=== PATIENT | male | born 1965 | race Caucasian/White ===

== ENCOUNTER 2021-11-20 07:02 | Inpatient (IN) | payer MEDICARE, SELFPAY ==
[2021-11-20] VITALS (17 sets, daily range): BP systolic 160–204; BP diastolic 80–106; PULSE 59–88; RESP 4–21; TEMP 36.1–36.8; O2SAT 94–100; BMI 40.1
--- NOTE | 2021-11-20 07:20 | CT_ITS ---
WS: [id number] CT CERVICAL SPINE HISTORY: trauma TECHNIQUE: Contiguous 2.5 mm axial imaging performed through the entire cervical spine. Sagittal and coronal reformats also performed. All CT scans at [place] use at least one of these dose o ptimization techniques: automated exposure control; mA and/or kV adjustment per patient size (include s targeted exams where dose is matched to clinical indication); or iterative reconstruction. DLP: 1362.08 mGy.cm COMPARISON: None available. Mild scoliosis of the cervical spine. Posterior alignment remains normal. Mild narrowing of the disc spaces throughout. Craniocervical junction, atlantodental interval and C1-C2 alignment is normal. C2-C3: Normal. C3-C4: Normal. C4-C5: Normal. C5-C6: Normal. C6-C7: Mild osteophytic ridging. Very small osteophytes and mild LEFT foraminal narrowing. C7-T1: Mild bilateral foraminal narrowing. Soft tissues are normal. Lung apices are clear. CT/CT cervical spin wo con* [id number] IMPRESSION: 1. No acute cervical spine fracture. 2. Cervical scoliosis. 3. Mild spondylitic changes but no high-grade stenosis.
--- NOTE | 2021-11-20 07:20 | CT_ITS ---
WS: [id number] CT LUMBAR SPINE, noncontrast. HISTORY: trauma TECHNIQUE: Contiguous 2.5 mm axial imaging are performed. Sagittal and coronal reformats are submitte d and reviewed. All CT scans at [facility] use at least one of these dose optimization techni ques: automated exposure control; mA and/or kV adjustment per patient size (includes targeted exams w here dose is matched to clinical indication); or iterative reconstruction. IV contrast: None DLP: 1125.27 mGy.cm COMPARISON: None available. Normal lumbar alignment with no loss of disc space height or vertebral body height. L1-2: Normal. L2-3: Mild annular disc bulge and facet arthritis. No stenosis. L3-4: Moderate diffuse annular disc bulging with osteophytic ridging and facet arthritis. Mild centra l, bilateral subarticular recess and foraminal stenosis. L4-5: Diffuse annular disc bulging asymmetric to the LEFT. Ligamentum flavum and facet arthritis. Mil d central, bilateral subarticular recess and foraminal stenosis. L5-S1: Osteophytic ridging and mild disc bulging. Mild subarticular recess and foraminal narrowing. Mild degenerative changes in the SI joints. Bone island RIGHT ischium. Stone in the gallbladder lumen or wall of the gallbladder. Visualized adrenal glands are negative. No retroperitoneal hematoma. CT/CT lumbar spine wo con* [id number] IMPRESSION: 1. No acute fracture. 2. Mild stenosis from L3-4 to L5-S1 as described above. No high-grade stenosis or large disc protrusions.
--- NOTE | 2021-11-20 07:20 | CT_ITS ---
WS: [id number] CT HEAD NONCONTRAST HISTORY: trauma TECHNIQUE: Contiguous axial imaging performed through the brain in 2.5 mm imaging. Bone and soft tiss ue windows. Sagittal and coronal reformats reviewed. All CT scans at [facility] use at least one of these dose optimization techniques: automated exposure control; mA and/or kV adjustment per pa tient size (includes targeted exams where dose is matched to clinical indication); or iterative recon struction. DLP: 1362.08 mGy.cm COMPARISON: None available. No acute intracranial hemorrhage, midline shift or mass effect. Moderate atrophy and small vessel ischemic disease. Numerous bilateral lacunar infarcts are noted inv olving the basal ganglia. There is also mild cerebellar atrophy. Small lacunar infarct in the LEFT po ns. Ventricles: Normal size with no hydrocephalus. No inferior displacement of cerebellar tonsils. Paranasal sinuses: As visualized are clear. Mastoid air cells: Well pneumatized. Calvarium and scalp: Skull is intact with no soft tissue edema or swelling. CT/CT head wo con* [id number] IMPRESSION: 1. No acute intracranial hemorrhage or edema. 2. Moderate cerebral atrophy and small vessel ischemic disease. 3. Multiple lacunar infarcts in the basal ganglia, bilaterally with a LEFT navi s lacunar infarct.
--- NOTE | 2021-11-20 07:20 | XR_ITS ---
WS: [id number] Exam: XR chest 1V portable [id number] Date/Time of Exam: 11/20/2021 7:24 AM Reason For Exam: dyspnea/cough Comparison 03/23/2018. Findings: The lungs are clear and fully expanded. Costophrenic angles are sharp. No infiltrates. Bronchovascula r relief appears normal. Cardiac silhouette is unremarkable. Bony elements are intact. XR/XR chest 1V portable [id number] IMPRESSION: Unremarkable chest radiograph.
--- NOTE | 2021-11-20 07:21 | ECG_ITS ---
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 Measurements Intervals [place] Rate: 71 P: 13 PA: 231 QRS: -59 QRSD: 102 T: 23 QT: 409 QTc: 445 Interpretive Statements SINUS RHYTHM WITH FIRST DEGREE AV BLOCK INFERIOR MYOCARDIAL INFARCTION , OF INDETERMINATE AGE ANTEROSEPTAL MYOCARDIAL INFARCTION , OF INDETERMINATE AGE Compared to ECG 03/23/2018 08:44:19 First degree AV block now present Myocardial infarct finding still present Electronically Signed On 11-20-2021 12:19:36 CDT by Casi Christy M.D. [id number]
--- NOTE | 2021-11-20 07:22 | ED_ITS ---
HPI - Weakness General: Chief complaint: Weakness Stated complaint: WEAKNESS/ FALL 2 DAYS AGO Time Seen by Provider: 11/20/21 07:07 Source: patient Mode of arrival: EMS History of Present Illness: 55-year-old male arrives via EMS. He reports having fallen at home 2 days ago. He states since then he has had difficult time denies any pain anywhere in particular he tells me that he previously had a stroke. He is not on any anticoagulants. He evidently fell backward he has a small abrasion to the back of his head EMS states there was a hole in the sheet rock where the patient had fallen at home. Is difficult time moving his right leg. He was incontinent of bowel prior to arrival. He is able answer all questions regarding time place and person but has difficulty formulating answers. Patient is diabetic. He is unable to tell me any details on his fall other than he just fell in the kitchen 2 days ago. MD Complaint: generalized weakness Onset (ago): day(s) (2) Duration: constant Location: RLE Severity: moderate Relieving factors: none Exacerbating factors: none Associated symptoms: Denies chest pain, chills, confusion, melena, decreased appetite, diaphoresis, dysuria, easy bruising, fever(s), headache(s), myalgias, nausea, rash, short of breath, syncope or vomiting Review of Systems Const: Denies: fever(s), chills, fatigue, malaise or diaphoresis ENMT: Denies: throat pain, ear or mastoid pain, nasal discharge or nasal congestion Card: Denies: chest pain or syncope Resp: Denies: dyspnea, productive cough or non-productive cough GI: Denies: abdominal pain, nausea, vomiting or melena : Denies: flank pain, difficulty urinating, dysuria, urinary frequency or urinary urgency Skin/Breast: Denies: rash or pruritus Neuro: Denies: headache(s) or confusion Jose Manuel/Lymph: Denies: easy bruising PFSH ED PFSH: Medical History CAD (coronary artery disease) Carotid stenosis Closed right hip fracture Diabetes Displaced fracture of right femoral neck Fall HTN (hypertension) Hyperlipidemia Sleep apnea Stroke Surgical History History of appendectomy History of tonsillectomy Family History Other Diabetes Hyperlipidemia Hypertension Social History Smoking and tobacco status: never smoked Alcohol intake: never Physical Exam Const: GENERAL APPEARANCE: cooperative and comfortable ORIENTATION/CONSCIOUSNESS: Yes awake, Yes oriented to person, Yes oriented to place and Yes oriented to time HENMT: COMMON NORMALS: normocephalic, atraumatic, hearing grossly normal bilaterally, external ears normal, EAC's normal, TM's normal bilaterally, Normal nasal mucous membranes and turbinates present, moist oral mucous membranes and oropharynx normal HEAD & SCALP: normocephalic and atraumatic NOSE: Normal nasal mucous membranes and turbinates present EXTERNAL EAR: Yes external ears normal EXTERNAL AUDITORY CANAL: EAC's normal TYMPANIC MEMBRANE: TM's normal bilaterally Eye: COMMON NORMALS: Equal, round and reactive pupils present, EOMs intact bilaterally, conjunctivae normal and no scleral icterus CONJUNCTIVA: Yes conjunctivae normal PUPIL: Yes Equal, round and reactive pupils present Neck/C-Spine: COMMON NORMALS: full ROM, no lymphadenopathy, supple and no JVD Resp: COMMON NORMALS: normal respiratory effort, No retractions, No use of accessory muscles and clear to auscultation bilaterally AUSCULTATION: clear to auscultation bilaterally Cardio: COMMON NORMALS: no JVD, regular rate, regular rhythm and No murmurs present (Cardio) RATE: regular rate RHYTHM: regular rhythm GI: COMMON NORMALS: Soft to palpation and No hepatosplenomegaly present AUSCULTATION: Yes normoactive bowel sounds PALPATION: Yes Soft to palpation, No Tenderness to palpation present (GI), No Guarding due to palpation present (GI) and Yes No hepatosplenomegaly present Extremity: COMMON NORMALS: normal to inspection, capillary refill normal, no clubbing, cyanosis or edema, no calf tenderness and no pedal edema Neuro: SENSORIUM/ORIENTATION: Yes oriented to person, Yes oriented to place and Yes oriented to time OTHER: Patient is able to follow all commands. He answers all questions regarding time place person orientation. He is little hesitant with his responses however. His word finding appears to be normal he has no dysarthria and no ataxia. He is not able to lift his right leg but is able to dorsi and plantarflex against resistance with 5 of 5 strength. His sensation of the lower extremities is normal. He has no arm drift and sensation in the upper extremities and his facial symmetry is all normal. Psych: COMMON NORMALS: mental status grossly normal Skin: COMMON NORMALS: no rashes or lesions noted GENERAL SKIN EXAM: no rashes or lesions noted Course Vital Signs: Vital signs: Vital Signs Temperature 97.5 F L 11/23/21 13:39 Pulse Rate 109 H 11/23/21 13:39 Respiratory Rate 16 11/23/21 13:39 Blood Pressure 134/80 11/23/21 13:39 Pulse Oximetry 97 11/23/21 13:39 Oxygen Delivery Me thod 11/22/21 15:32 Oxygen Flow Rate 8 11/21/21 14:05 MDM - Weakness Medical Decision Making Right subcapital impacted hip fracture. Son arrived later he could tell a few more details about the fall but he was not in the room when it happened. Evidently fell 2 nights ago and making coffee around 3 AM and then the son assisted him to the shower where he fell again. He seemed lethargic but he was refusing any medical driver and instructed his son not to call the ambulance. Eventually they did because he was unable to get up and take care of himself. After the initial fall in the kitchen the son reports he did walk to the shower. CT shows lacunar infarcts. Similar to previous. Discussed with Cole and discussed with Dr. Sims orders written. Medical Records I reviewed the patient's medical records. Lab Data I reviewed the patient's lab results. : 11/23/21 04:00 11/22/21 04:31 Radiology Impressions Cervical Spine CT 11/20/21 07:20 IMPRESSION: 1. No acute cervical spine fracture. 2. Cervical scoliosis. 3. Mild spondylitic changes but no high-grade stenosis. Chest X-Ray 11/20/21 07:20 IMPRESSION: Unremarkable chest radiograph. Head CT 11/20/21 07:20 IMPRESSION: 1. No acute intracranial hemorrhage or edema. 2. Moderate cerebral atrophy and small vessel ischemic disease. 3. Multiple lacunar infarcts in the basal ganglia, bilaterally with a LEFT pa lacunar infarct. Lumbar Spine CT 11/20/21 07:20 IMPRESSION: 1. No acute fracture. 2. Mild stenosis from L3-4 to L5-S1 as described above. No high-grade stenosis or large disc protrusions. Femur X-Ray 11/20/21 09:10 IMPRESSION: 1. Subcapital fracture of the right femur. Remaining aspects of the right femur are intact. Knee X-Ray 11/20/21 09:10 IMPRESSION: 1. Negative RIGHT knee for fracture. 2. Peripheral arterial calcifications. Pelvis X-Ray 11/20/21 09:10 IMPRESSION: 1. Mildly impacted acute fracture involving the base of the RIGHT femoral neck. 2. Otherwise mild osteoarthritis at the hip joints bilaterally. Hip/Pelvis X-Ray 11/21/21 14:17 IMPRESSION: 1. Right hip hemiprosthesis appearing be in satisfactory position Laboratory Results WBC 6.6 10^3/uL (4.0-10.0) 11/20/21 07:10 RBC 5.62 10^6/uL (4.1-5.3) H 11/20/21 07:10 Hgb 15.4 g/dL (11.7-16.6) 11/20/21 07:10 Hct 46.6 % (42.0-52.0) 11/20/21 07:10 MCV 82.9 fl (80-94) 11/20/21 07:10 MCH 27.4 pg (28.0-34.0) L 11/20/21 07:10 MCHC 33.0 g/dL (30.0-36.0) 11/20/21 07:10 RDW 13.2 % (12.1-15.1) 11/20/21 07:10 Plt Count 158 10^3/cmm (130-400) 11/20/21 07:10 MPV 11.5 fL (7.4-10.4) H 11/20/21 07:10 Neut % (Auto) 60.4 % 11/20/21 07:10 Lymph % (Auto) 25.5 % 11/20/21 07:10 [place] % (Auto) 12.1 % 11/20/21 07:10 Eos % (Auto) 1.1 % 11/20/21 07:10 Baso % (Auto) 0.3 % 11/20/21 07:10 Neut # (Auto) 4.01 10^3/uL (1.8-7.7) 11/20/21 07:10 Lymph # (Auto) 1.7 10^3/uL (0.8-4.8) 11/20/21 07:10 [place] # (Auto) 0.8 10^3/uL (0.2-0.9) 11/20/21 07:10 Eos # (Auto) 0.1 10^3/uL (0.0-0.8) 11/20/21 07:10 Baso # (Auto) 0.0 10^3/uL (0.0-0.1) 11/20/21 07:10 Nucleated RBC % (auto) 0 % 11/20/21 07:10 Nucleated RBCs # 0.0 /100WBC 11/20/21 07:10 PT 13.00 SECONDS (12.1-14.9) 11/20/21 07:10 INR 0.96 (0.8-1.2) 11/20/21 07:10 APTT 23.8 SECONDS (23.9-36.7) L 11/20/21 07:10 Sodium 135 mmol/L (136-145) L 11/20/21 07:10 Potassium 3.7 mmol/L (3.5-5.1) 11/20/21 07:10 Chloride 98 mmol/L (98-107) 11/20/21 07:10 Carbon Dioxide 22 mmol/L (22-29) 11/20/21 07:10 Anion Gap 18.7 (5-19) 11/20/21 07:10 BUN 21 mg/dL (6-20) H 11/20/21 07:10 Creatinine 0.9 mg/dL (0.7-1.2) 11/20/21 07:10 GFR Calculation 87.3 mL/min (90-130) L 11/20/21 07:10 Glucose 273 mg/dL (65-115) H 11/20/21 07:10 Estimat Average Glucose 203 11/20/21 07:10 Hemoglobin A1c 8.7 % (4.0-6.0) H 11/20/21 07:10 Calculated Osmolality 293 mOsm/kg (285-295) 11/20/21 07:10 Calcium 8.7 mg/dL (8.5-10.5) 11/20/21 07:10 Total Bilirubin 0.7 mg/dL (0.15-1.2) 11/20/21 07:10 AST 20 U/L (0-40) 11/20/21 07:10 ALT 20 U/L (0-41) 11/20/21 07:10 Alkaline Phosphatase 64 U/L (40-130) 11/20/21 07:10 Creatine Kinase 202 U/L (39-308) 11/20/21 07:10 Troponin T Baseline 15 ng/L (0-15) 11/20/21 07:10 Troponin T 120 Minute 15.00 ng/L (0-15) 11/20/21 09:55 Delta Troponin T 0 ABS# (0-10) 11/20/21 09:55 Total Protein 6.4 g/dL (6.6-8.7) L 11/20/21 07:10 Albumin 3.5 g/dL (3.5-5.2) 11/20/21 07:10 Globulin 2.9 g/dL (1.3-4.6) 11/20/21 07:10 TSH 0.95 uIU/mL (0.27-4.20) 11/20/21 09:55 Urine Color Dark yellow (Yellow) 11/20/21 07:55 Urine Appearance Clear (CLEAR) 11/20/21 07:55 Urine pH 5 (5-7) 11/20/21 07:55 Ur Specific [place] 1.020 (1.005-1.030) 11/20/21 07:55 Urine Protein 2+ (Negative) H 11/20/21 07:55 Urine Glucose (UA) 4+ (Normal) H 11/20/21 07:55 Urine Ketones 2+ (Negative) H 11/20/21 07:55 Urine Blood Neg (Negative) 11/20/21 07:55 Urine Nitrate Negative (Negative) 11/20/21 07:55 Urine Bilirubin Neg (Negative) 11/20/21 07:55 Urine Urobilinogen Norm mg/dL (Negative) 11/20/21 07:55 Ur Leukocyte Esterase Negative (Negative) 11/20/21 07:55 Urine RBC Rare /hpf (0-2) 11/20/21 07:55 Urine WBC 0-4 /hpf (0-5) H 11/20/21 07:55 Ur Squamous Epith Cells Rare /hpf (0-5) 11/20/21 07:55 Amorphous Sediment Not Reportable 11/20/21 07:55 Urine Bacteria Trace /hpf (NONE) 11/20/21 07:55 Hyaline Casts Rare /lpf 11/20/21 07:55 Urine Mucus 1+ /hpf 11/20/21 07:55 Blood Type O Positive 11/20/21 09:55 Rho(D) Type Positive 11/20/21 09:55 Antibody Screen Negative 11/20/21 09:55 Discharge Plan Discharge Patient Disposition: Admitted As Inpatient Admit Provider: John Harp Clinical Impression: Closed right hip fracture, History of cerebrovascular accident, Sleep apnea, Diabetes, Carotid stenosis, CAD (coronary artery disease) Condition: Stable Discharge Diet: Cardiac and Diabetic Discharge Activity: Limit activity as instructed Coding Level of Care Code 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[employer] 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 Comprehensive NIH stroke score NIHSS Level Of Consciousness - 1a: 1 (Patient is slow to answer questions but is able to answer questions appropriately.) Level Of Consciousness Questions - 1b: Both Correct Level Of Consciousness Commands - 1c: Both Correct Best Gaze - 2: Normal Visual Hart - 3: No Visual Loss Facial Palsy - 4: Normal Motor Arm Right - 5: No Drift Motor Arm Left - 5: No Drift Motor Leg Right - 6: No Drift Motor Leg Left - 6: No Drift Limb Ataxia - 7: Absent Sensory - 8: Normal Best Language - 9: No Aphasia Dysarthia - 10: Normal Extinction And Inattention - 11: 0 Score Total Score: 1
[2021-11-20 07:36] LABS: Basophils % 0.3 %; Eosinophils # 0.1 10^3/uL (0.0-0.8); Eosinophils % 1.1 %; Hematocrit 46.6 % (42.0-52.0); Hemoglobin 15.4 g/dL (11.7-16.6); Lymphocytes # 1.7 10^3/uL (0.8-4.8); Lymphocytes % 25.5 %; Mean Corpuscular Hemoglobin 27.4 pg (28.0-34.0); Mean Corpuscular Volume 82.9 fl (80-94); Mean Platelet Volume 11.5 fL (7.4-10.4); Monocytes # 0.8 10^3/uL (0.2-0.9); Monocytes % 12.1 %; Neutrophils # 4.01 10^3/uL (1.8-7.7); Neutrophils % 60.4 %; Nucleated Red Blood Cells % 0 %; Platelet Count 158 10^3/cmm (130-400); Red Blood Count 5.62 10^6/uL (4.1-5.3); Red Cell Distribution Width 13.2 % (12.1-15.1); White Blood Count 6.6 10^3/uL (4.0-10.0)
--- NOTE | 2021-11-20 07:53 | XR_ITS ---
WS: [id number] Exam: XR hip RT 2-3V wo/w pel* [id number] Date/Time of Exam: 11/20/2021 8:15 AM Reason For Exam: pain There is a subcapital fracture of the right hip. There is impaction but no significant displacement. Moderate degenerative change of the joint compartment. Vascular calcification in the upper medial thi gh. XR/XR hip RT 2-3V wo/w pel* [id number] IMPRESSION: 1. Subcapital fracture of the right hip with the mild impaction.
[2021-11-20 07:58] LABS: Alanine Aminotransferase 20 U/L (0-41); Albumin Level 3.5 g/dL (3.5-5.2); Alkaline Phosphatase 64 U/L (40-130); Blood Urea Nitrogen 21 mg/dL (6-20); Calcium 8.7 mg/dL (8.5-10.5); Carbon Dioxide 22 mmol/L (22-29); Chloride 98 mmol/L (98-107); Creatine Phosphokinase 202 U/L (39-308); Globulin 2.9 g/dL (1.3-4.6); Glomerular Filtration Rate 87.3 mL/min (90-130); Glucose 273 mg/dL (65-115); Osmolality Calculated 293 mOsm/kg (285-295); Sodium 135 mmol/L (136-145); Total Bilirubin 0.7 mg/dL (0.15-1.2); Total Protein 6.4 g/dL (6.6-8.7); Troponin(5th) Baseline 15 ng/L (0-15)
[2021-11-20 08:00] LABS: Anion Gap 18.7 (5-19); Aspartate Amino Transferase 20 U/L (0-40); Potassium 3.7 mmol/L (3.5-5.1)
[2021-11-20 08:16] LABS: Add Urine Culture? No; Add Urine Microscopic? YES; Bacteria Urine TRACE /hpf; Bilirubin Urine Neg (Negative); Blood Urine Neg (Negative); Glucose Urine UA 4+ (Normal); Hyaline Casts Urine RARE /lpf; Ketones Urine 2+ (Negative); Leukocyte Esterase Urine Negative (Negative); Mucus Urine 1+ /hpf; Nitrate Urine Negative (Negative); Protein Urine 2+ (Negative); RBC Urine RARE /hpf (0-2); Squamous Epithelial Cell Urine RARE /hpf (0-5); Urine Appearance Clear (CLEAR); Urine Color Dark Yellow (Yellow); Urobilinogen Urine Norm (Negative); WBC Urine 0-4 /hpf (0-5); pH Urine 5 (5-7)
--- NOTE | 2021-11-20 09:05 | ECG_ITS ---
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 Measurements Intervals [place] Rate: 67 P: -17 SC: 233 QRS: -63 QRSD: 103 T: 28 QT: 416 QTc: 442 Interpretive Statements SINUS RHYTHM WITH FIRST DEGREE AV BLOCK POSSIBLE ANTERIOR MYOCARDIAL INFARCTION , OF INDETERMINATE AGE [30 ms Q WAVE IN V3/V4, OR R < 0.2 mV IN V4] INFERIOR MYOCARDIAL INFARCTION , OF INDETERMINATE AGE [40+ ms Q WAVE AND/OR ST/T ABNORMALITY IN II/aVF] Compared to ECG 11/20/2021 07:25:26 No significant changes Electronically Signed On 11-20-2021 12:20:56 CDT by Casi Christy M.D. [id number]
--- NOTE | 2021-11-20 09:10 | XR_ITS ---
WS: [id number] RIGHT KNEE: 2 VIEW(S) TECHNIQUE: AP and lateral. HISTORY: right femur fx COMPARISON: None available. No fracture or dislocation. Very mild narrowing of the joint spaces. Irregularity noted at the tibial tubercle. No significant joao int effusion. No joint effusion. Extensive femoral and popliteal artery calcifications. XR/XR knee RT 1-2V [id number] IMPRESSION: 1. Negative RIGHT knee for fracture. 2. Peripheral arterial calcifications.
--- NOTE | 2021-11-20 09:10 | XR_ITS ---
WS: [email or web address] PELVIS: AP VIEW SUBMITTED HISTORY: right hip fx COMPARISON: None available. Acute mildly impacted fracture involving the base of the RIGHT femoral neck. Mild overlapping of frac ture fragments and impaction. Mild bilateral hip joint narrowing from arthritis. No widening of the SI joints or symphysis pubis. N o pubic rami fracture. XR/XR pelvis 1-2V* [id number] IMPRESSION: 1. Mildly impacted acute fracture involving the base of the RIGHT femoral neck . 2. Otherwise mild osteoarthritis at the hip joints bilaterally.
--- NOTE | 2021-11-20 09:10 | XR_ITS ---
WS: [email or web address] Exam: XR femur RT min 2V* [id number] Date/Time of Exam: 11/20/2021 9:23 AM Reason For Exam: right femur fx There is a subcapital fracture of the right hip. Remaining aspects the right femur are intact. XR/XR femur RT min 2V* [id number] IMPRESSION: 1. Subcapital fracture of the right femur. Remaining aspects of the right femur are intact.
--- NOTE | 2021-11-20 09:15 | P.CONIM_ITS ---
Providers/Reason For Consult Consulting Physician/Specialty*: Al Galvan DO/orthopedic surgery Reason for Consult*: Right femoral neck fracture Requesting Physician: Dr. White Attending Physician: Dr. Harp Primary Care Provider: RHETT Briceño History of Present Illness History of Present Illness Cal Oneill is a 55 year old male who presents to the emergency department with his son with complaints of right hip pain and inability to bear weight. Patient allegedly began sustaining multiple falls roughly 3 nights ago. 1 of which she had hit his head. He subsequently had another fall where he fell onto his hip and had pain in the right hip and inability to bear weight since. He subsequently soiled himself this morning and as result his son thought it was best to bring patient in the emergency department. He has been worked up for a head injury which the son states he thought he may be was in and out of co nsciousness from one of his multiple falls and ultimately the work-up in the emergency department has been negative for any acute hemorrhage or cervical spine injury. Given his right hip pain inability to bear weight x-ray is performed and shows a displaced subcapital right femoral neck fracture. As result the orthopedic team was consulted for evaluation and treatment of patient. Patient does have extensive past medical history which she states he does not take much medications he is on metformin for diabetes mellitus he supposed to be on an aspirin daily given his coronary artery disease but he states he does not take this. He is not on any anticoagulants. His baseline ambulatory status is he does live at home and he mobilizes around the home utilizing some assistive device to needed. He does not sound to be much in the way of a community ambulator. Review of Systems General: Reports: 10 or more systems reviewed and unremarkable except in HPI and below Const: Denies: fever(s) or chills Card: Denies: chest pain Resp: Denies: dyspnea GI: Denies: abdominal pain, nausea or vomiting Musc: Reports: extremity pain and joint pain Neuro: Denies: numbness in extremities Medications/Allergies Home Medications Medication Instructions Recorded Confirmed Last Taken Type metformin 1,000 mg tablet 1,000 mg PO BID 05/07/19 11/20/21 11/19/21 History Allergies Allergy/AdvReac Type Severity Reaction Status Date / Time tramadol AdvReac ADR-Headach Verified 11/20/21 07:29 e PFSH Acute PFSH: Medical History (Updated 11/20/21 @ 16:20 by Al Galvan DO) CAD (coronary artery disease) Carotid stenosis Diabetes Displaced fracture of right femoral neck HTN (hypertension) Hyperlipidemia Sleep apnea Stroke Surgical History History of appendectomy History of tonsillectomy Family History Other Diabetes Hyperlipidemia Hypertension Social History (Updated 11/20/21 @ 09:47 by John Harp MD) Smoking and tobacco status: never smoked Alcohol intake: never Substance/Drug Use: current Substance/Drug use type: Marijuana Vitals/I&O/Wt Last Vital Signs Temp 97.9 F 11/20/21 07:03 Pulse 76 11/20/21 07:30 Resp 18 11/20/21 07:30 BP 180/86 11/20/21 07:30 Pulse Ox 100 11/20/21 07:30 O2 Del Method 11/20/21 07:30 Weight last 48 hrs Weight 280 lb Physical Exam Narrative: Orthopedic examination: Examination of the bilateral upper extremities demonstrates no tenderness to palpation or painful range of motion of bilateral shoulders elbows wrists and hands. Patient has tenderness to palpation over the right hip no tenderness palpation of pelvic compression. No tenderness over the left hip groin or pain with range of motion is able to perform a straight leg raise to the left lower extremity wiggle toes plantarflex dorsiflex ankle. Significant tenderness to palpation to the right hip, patient is on able to perform a straight leg raise positive logroll right lower extremity is shortened and externally rotated. Patient is able to wiggle toes plantarflex and dorsiflex ankle sensation tact light touch to the SPN/DPN/tibial/saphenous/sural nerve distribution. Distal pulse palpable. No tenderness to palpation over the distal aspect the femur and right knee Const: COMMON NORMALS: no acute distress and alert HENMT: COMMON NORMALS: normocephalic and atraumatic HEAD & SCALP: normocephalic and atraumatic Resp: COMMON NORMALS: normal respiratory effort Cardio: COMMON NORMALS: Peripheral pulses 2+ throughout PERIPHERAL PULSES: Peripheral pulses 2+ throughout Neuro: SENSORIUM/ORIENTATION: Yes alert Data : 11/20/21 07:10 11/20/21 07:10 Xray Ortho: My impression: X-rays AP pelvis right hip femur and knee films reviewed demonstrate a displaced subcapital femoral neck fracture. No other fracture dislocation noted. Radiologist's impression: IMPRESSION: 1. Subcapital fracture of the right femur. Remaining aspects of the right femur are intact. ? A&P Assessment and plan (1) Displaced fracture of right femoral neck: Plan MDM: Cal presents as a pleasant 55-year-old gentleman who sustained a ground-lev el fall and injured his right hip. X-rays show a displaced subcapital femoral neck fracture. Patient is 55 years at of age however patient's comorbidities and overall health he appears much older. At this point in time I detailed discussion with him about his treatment options as far as nonoperative and operative intervention. Ultimately I would recommend operative intervention. We talked about ORIF versus hip hemiarthroplasty versus total hip replacement. At this standpoint I do not feel given the displacement he would be a good candidate for ORIF and high likelihood of revision surgery. He did not complain of any prior hip pain and ultimately given the acute nature of the fall and his poor biologic age given his comorbidities I feel patient would be more of a candidate for a hip hemiarthroplasty. His mobility is minimal and I do have some concerns about his following of hip precautions from the standpoint of putting patient into a total hip replacement. Also patient is a Evangelical and ultimately would like to keep blood loss at a minimum. I would recommend doing a posterior approach given his bone quality his door classification appears more to be in a as result I think we could have appropriate press-fit fixation and he would be a good candidate for this. As result he will be posterior approach press-fit bipolar hip hemiarthroplasty. We will have him worked up by the internal medicine team. We will get a medically optimized prior to surgical intervention. He may have a diet today. Nonweightbearing to the right hip. He may start Lovenox today hold a.m. anticoagulation for surgical intervention planned tomorrow once patient's medically cleared and optimized by internal medicine as well as anesthesia team. Stands and agrees with current plan. All questions answered at this time. -Nonweightbearing right lower extremity -Pain control -DVT prophylaxis?Lovenox May received today however hold a.m. anticoagulation -I have a diet today patient should be n.p.o. at midnight -Internal medicine as primary and appreciate their medical management and clearance and optimization for surgery -X-ray imaging reviewed -Plan for OR tomorrow for right hip hemiarthroplasty through a posterior approach press-fit fixation utilizing bipolar implant once medically optimized and cleared for surgery Consult Attestations Medical Necessity Statement: Patient sustained right femoral neck fracture requiring surgical intervention and hospitalization. Coding Level of Care Code Acute Rn Corrections for [facility] Diagnoses Displaced fracture of right femoral neck S72.001A Time Spent (min) 55
[2021-11-20 09:40] LABS: INR 0.96 (0.8-1.2)
[2021-11-20 09:41] LABS: Partial Thromboplastin Time 23.8 SECONDS (23.9-36.7)
--- NOTE | 2021-11-20 09:42 | P.HP_ITS ---
Providers/Chief Complaint Admitting Physician: John Harp MD Primary Care Provider: RHETT Briceño Chief Complaint: WEAKNESS/ FALL 2 DAYS AGO History of Present Illness Cal Oneill is a 55 year old male presenting to the emergency department with history of fall, approximately 2 days ago in the morning when he was up making coffee. Son walked him to the shower to get cleaned up, and he fell again. He has been having some right leg pain since then. Son reports he seemed to have a little bit of word finding difficulty when he first fell but that is cleared up very quickly. There is no history of seizure. Patient denies any focal weakness, reporting only pain when he tries to move his right lower extremity. He has had a past history of stroke, in 2019. He has not been on any preventative medicines for this nor his heart disease. He denies any chest discomfort lately. No issues with anesthesia. He does report he is a Qu[employer]. He does not want any blood products, but should he need any for life- threatening needs he would like to be asked again. He has not been taking preventative medicines for his past history of stroke or heart disease. He has not been using his CPAP. Review of Systems General: Reports: 10 or more systems reviewed and unremarkable except in HPI and below Const: Reports: fatigue Eyes: Denies: change in vision ENMT: Denies: throat pain Card: Denies: chest pain Resp: Denies: dyspnea GI: Denies: abdominal pain, nausea or vomiting : Denies: flank pain Musc: Denies: neck pain Skin/Breast: Denies: rash or pruritus Neuro: Denies: headache(s) Psych: Denies: anxiety or depression Endo: Denies: polyuria Jose Manuel/Lymph: Denies: easy bruising All/Imm: Denies: urticaria Medications/Allergies Home Medications Medication Instructions Recorded Confirmed Last Taken Type metformin 1,000 mg tablet 1,000 mg PO BID 05/07/19 11/20/21 11/19/21 History Allergies Allergy/AdvReac Type Severity Reaction Status Date / Time tramadol AdvReac ADR-Headach Verified 11/20/21 07:29 e PFSH Acute PFSH: Medical History CAD (coronary artery disease) Carotid stenosis Diabetes HTN (hypertension) Hyperlipidemia Sleep apnea Stroke Surgical History History of appendectomy History of tonsillectomy Family History Other Diabetes Hyperlipidemia Hypertension Social History (Updated 11/20/21 @ 09:47 by John Harp MD) Smoking and tobacco status: never smoked Alcohol intake: never Substance/Drug Use: current Substance/Drug use type: Marijuana Vitals/I&O/Wt Last Vital Signs Temp 97.9 F 11/20/21 07:03 Pulse 75 11/20/21 09:30 Resp 19 H 11/20/21 09:30 BP 172/86 11/20/21 09:30 Pulse Ox 100 11/20/21 09:30 O2 Del Method 11/20/21 07:30 Weight last 48 hrs Weight 127.006 kg Physical Exam Narrative: General exam is a white male, conversant, weak but in conversation. Son reports this is baseline. HEENT: Atraumatic normocephalic. Pupils equally round. Oropharynx clear. Tongue is midline. No obvious facial droop. Neck is supple without lymphadenopathy or thyromegaly Cardiovascular regular rate and rhythm without murmur, no S3 or S4 Lungs clear bilaterally. No wheezing or crackles Abdomen is soft nontender positive bowel sounds. No obvious organomegaly exam is deferred Extremities no cyanosis clubbing or edema. Sensation intact bilaterally. Can move right lower extremity without difficulty in the ankle and foot. Whenever he tries to move entire leg he has significant pain from his hip fracture Skin without rash Neuro no obvious focal deficits. Data : 11/20/21 07:10 11/20/21 07:10 Other Labs: Urinalysis is essentially negative with the exception of 2+ protein LFTs are normal. Albumin is 3.5 Calcium 8.7 Troponin was 15 INR normal Pelvis x-ray and hip x-ray x-ray demonstrates subcapital right hip fracture, arthritic disease. Lumbar spine CT demonstrates no fracture, mild stenosis Head CT demonstrates multiple lacunar basal ganglia infarcts and a left pa lacunar infarct. None of which are apparently acute. Cervical spine CT no fracture Chest x-ray no infiltrate. EKG demonstrates sinus rhythm, left axis deviation, Q waves inferiorly and anteriorly that is unchanged from an EKG in 2019. Previous angiogram 2019 demonstrated LAD 30% stenosis, circumflex 50 to 60% stenosis. No intervention was needed at that time AVELINO March 2018 was essentially normal with normal heart function and valve function but a small PFO was noted. Carotid arteries when scanned on previous admission in 2019 demonstrated moderate carotid artery disease but no flow-limiting lesions. A&P Assessment and plan (1) Closed right hip fracture: Patient presents with fall, and has sustained a right hip fracture. Sustained this 2 days ago. Bedrest currently He is urinating well. Place Grajeda prior to surgery but no urgency.. This can be done directly preoperative. Orthopedic consultation Initiate DVT prophylaxis At this point no direct contraindications for surgery. (2) Fall: From the patient's description he had no prodrome that he was going to fall. Although I suspect this is a mechanical fall cannot rule out other cause completely. Previous history of CVA could predispose him to fall as well. He has no obvious focal neurologic deficit currently. Placed on telemetry Secondary to past history of CVA, known carotid and heart disease we will check echocardiogram and carotid duplex. (3) History of cerebrovascular accident: He has not been taking preventative medication for this or his heart disease. Initiate statin Check lipid profile in the morning Initiate aspirin 81 mg daily (4) CAD (coronary artery disease): See above Monitor blood pressure. Add aspirin, statin If remains high, consider add addition of low-dose beta-zana considering past history of heart disease (5) HTN (hypertension): See above Qualifiers: Hypertension type: essential hypertension Qualified Code(s): I10 - Essential (primary) hypertension (6) Diabetes: Check hemoglobin A1c Hold metformin currently Placed on sliding scale insulin Plan History of obstructive sleep apnea. He has not been using his CPAP. 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
[2021-11-20 10:31] LABS: Thyroid Stimulating Hormone 0.95 uIU/mL (0.27-4.20)
[2021-11-20 10:31] LABS: Estmated Average Glucose 203; Hemoglobin A1C 8.7 % (4.0-6.0)
[2021-11-20] MEDS: aspirin 81 mg EC Tablet PO (10:45)
[2021-11-20 10:51] LABS: Troponin 5 2HR Delta 0 ABS# (0-10)
--- NOTE | 2021-11-20 11:38 | USCV_ITS ---
Cal Oneill Age: 55 Gender: M : 1965 Exam Date: 11/20/2021 13:58 Ordering Phys: John Harp MD Technologist: EVE Exam Location: [facility] [place] Indication: History of CVA, CAD BP: 134 / 87 HR: 69 Rhythm: Sinus Technical Quality: Suboptimal MEASUREMENTS (Male / Female) Normal Values 2D ECHO LV Diastolic Diameter PLAX 3.4 cm 4.2 - 5.9 / 3.9 - 5.3 cm LV Systolic Diameter PLAX 2.3 cm IVS Diastolic Thickness 1.0 cm 0.6 - 1.0 / 0.6 - 0.9 cm IVS Systolic Thickness 1.5 cm LVPW Diastolic Thickness 1.0 cm 0.6 - 1.0 / 0.6 - 0.9 cm LVPW Systolic Thickness 1.3 cm LVOT Diameter 2.0 cm LV Ejection Fraction 2D Teich 60.7 % LV Ejection Fraction MOD 2C 56.3 % LV Ejection Fraction 2C AL 54.2 % LA Diameter 3.0 cm LA Width 3.0 cm LA Height 3.9 cm RA Width 2.7 cm RA Height 4.3 cm Aorta at Sinotubular Diameter 2.4 cm IVC Diameter 1.7 cm M-MODE Aortic Annulus Diameter 3.0 cm LA Ao Ratio MM 1.1 DOPPLER AV Peak Velocity 123.0 cm/s LVOT Peak Velocity 111.0 cm/s AV Area Cont Eq vti 2.8 cm squared AV Area Cont Eq pk 2.9 cm squared MV Area PHT 5.0 cm squared Mitral E to A Ratio 0.7 MV E' Velocity 32.5 cm/s Mitral E to MV E' Ratio 4.9 Mitral E to LV E' Lateral Ratio 4.7 Mitral E to LV E' Septal Ratio 5.0 Right Atrial Pressure 3.0 mmHg PV Peak Velocity 99.0 cm/s RV Acceleration Time 0.1 s RV Ejection Time 0.3 s RV AcT/ET 0.2 FINDINGS Left Ventricle Left ventricle is normal size. LV systolic function is normal with EF of 50 to 55%. Regional wall motion abnormalities cannot be accurately assessed because of poor ultrasonic windows. Grade 1 diastolic dysfunction Right Ventricle Right ventricle is normal in size and function Right Atrium Normal in size Left Atrium Normal size Mitral Valve Grossly normal. Mild mitral regurgitation. Aortic Valve Aortic valve is grossly thickened. No significant aortic stenosis. No significant regurgitation. Tricuspid Valve Trace tricuspid regurgitation. Insufficient TR jet to calculate RVSP Pulmonic Valve Not well-visualized. Pericardium Grossly normal Aorta Normal in size IVC CONCLUSIONS Technically limited quality echocardiogram because of poor ultrasonic windows. LV systolic function is normal with EF of 55-60% Grade 1 diastolic dysfunction Mild mitral regurgitation Trace tricuspid regurgitation Compared to prior echocardiogram from 2019, no significant changes are noted. Marco Antonio Hawkins MD (Electronically Signed) Final Date: 20 November 2021 18:22 S
--- NOTE | 2021-11-20 11:38 | USCV_ITS ---
Cal Oneill Age: 55 Gender: M : 1965 Exam Date: 11/20/2021 13:37 Ordering Phys: John Harp MD Technologist: EVE Exam Location: [facility] [place] Indication: History of CVA Risk Factors: Unknown Previous Vascular Surgery: None Right Brachial BP: / Left Brachial BP: / Right Left Velocity (cm/s) Spectral Plaque Velocity (cm/s) Spectral Plaque Syst/Diast Broadening Syst/Diast Broadening 76.10/ 9.90 Prox CCA 84.30 / 9.60 62.10/ 7.80 Mid CCA 60.90 / 9.80 65.30/ 7.80 Distal CCA 59.90 / 8.20 64.50/ 21.00 Prox ICA 58.00 / 12.30 62.90/ 17.10 Mid ICA 64.80 / 13.60 77.70/ 15.50 Distal ICA 59.90 / 16.00 78.50 ECA 66.70 1.25 ICA/CCA 1.06 Antegrade Vertebral Antegrade 20.20/ 7.00 cm/s 46.30/ 14.20 cm/s Tri Subclavian Tri 77.90 99.20 FINDINGS Comparison:. 03/23/18. Mild diffuse bilateral scattered calcified plaque and intimal thickening throughout the common carotid arteries and extending through the bifurcation. Antegrade vertebral arteries. No significant elevation of systolic or diastolic velocities. CONCLUSIONS No interval change in stenosis since prior exam. Bilateral ICA stenosis less than 50%. Dr. Ayleen Hilario DO (Electronically Signed) Final Date: 20 November 2021 16:12 S
[2021-11-20 12:04] LABS: Glucose Point of Care 235 mg/dL (70-110)
[2021-11-20] MEDS: insulin lispro 100 unit/1 mL SUBCUT ×3 (12:43→21:08)
[2021-11-20] MEDS: enoxaparin 40 mg/0.4 mL Syringe SUBCUT (12:45)
--- NOTE | 2021-11-20 13:21 | ECG_ITS ---
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 Measurements Intervals [place] Rate: 76 P: 23 MI: 235 QRS: -63 QRSD: 103 T: 19 QT: 384 QTc: 434 Interpretive Statements SINUS RHYTHM WITH FIRST DEGREE AV BLOCK POSSIBLE ANTERIOR MYOCARDIAL INFARCTION , OF INDETERMINATE AGE [30 ms Q WAVE IN V3/V4, OR R < 0.2 mV IN V4] INFERIOR MYOCARDIAL INFARCTION , OF INDETERMINATE AGE [40+ ms Q WAVE AND/OR ST/T ABNORMALITY IN II/aVF] Compared to ECG 11/20/2021 09:05:55 No significant changes Electronically Signed On 11-21-2021 6:10:00 CDT by Casi Christy M.D. [id number]
[2021-11-20 14:06] LABS: Troponin 5 6HR 14.79 ng/L (0-15)
[2021-11-20 14:15] LABS: Troponin 5 6HR Delta -0.21 ng/L (0-12)
[2021-11-20] MEDS: oxyCODONE 5 mg IR Tab/Cap PO (15:41)
[2021-11-20 17:20] LABS: Glucose Point of Care 181 mg/dL (70-110)
[2021-11-20 20:45] LABS: Glucose Point of Care 211 mg/dL (70-110)
[2021-11-20] MEDS: atorvastatin 40 mg Tablet PO (21:07)
[2021-11-21] VITALS (22 sets, daily range): BP systolic 125–187; BP diastolic 67–89; PULSE 55–72; RESP 15–24; TEMP 36.2–36.9; O2SAT 94–100
[2021-11-21] MEDS: oxyCODONE 5 mg IR Tab/Cap PO ×2 (04:07→17:58)
[2021-11-21 04:48] LABS: Basophils % 0.5 %; Eosinophils # 0.2 10^3/uL (0.0-0.8); Eosinophils % 2.5 %; Hematocrit 45.4 % (42.0-52.0); Hemoglobin 15.2 g/dL (11.7-16.6); Lymphocytes # 1.7 10^3/uL (0.8-4.8); Lymphocytes % 28.3 %; Mean Corpuscular HGB Conc 33.5 g/dL (30.0-36.0); Mean Corpuscular Hemoglobin 27.8 pg (28.0-34.0); Mean Platelet Volume 11.1 fL (7.4-10.4); Monocytes # 0.8 10^3/uL (0.2-0.9); Monocytes % 14.2 %; Neutrophils # 3.21 10^3/uL (1.8-7.7); Neutrophils % 54.2 %; Nucleated Red Blood Cells % 0 %; Platelet Count 190 10^3/cmm (130-400); Red Blood Count 5.47 10^6/uL (4.1-5.3); White Blood Count 5.9 10^3/uL (4.0-10.0)
[2021-11-21 05:12] LABS: Anion Gap 16.1 (5-19); Blood Urea Nitrogen 16 mg/dL (6-20); Calcium 8.9 mg/dL (8.5-10.5); Carbon Dioxide 26 mmol/L (22-29); Chloride 102 mmol/L (98-107); Chol HDL Ratio 5.78 mg/dL (1.0-5.00); Cholesterol 156 mg/dL (0-200); Glomerular Filtration Rate 87.3 mL/min (90-130); Glucose 211 mg/dL (65-115); HDL Cholesterol 27 mg/dL (60-100); LDL Cholesterol Calculated 103 mg/dL (50-129); LDL HDL Ratio 3.81 RATIO (0.00-3.22); Osmolality Calculated 297 mOsm/kg (285-295); Potassium 4.1 mmol/L (3.5-5.1); Sodium 140 mmol/L (136-145); Triglycerides 130 mg/dL (0-150)
[2021-11-21 06:19] LABS: Glucose Point of Care 298 mg/dL (70-110)
--- NOTE | 2021-11-21 07:26 | PM.PN ---
Subjective Subjective: Cal reports he is doing okay. Had some pain through the night. Eager to have his surgery. Medications: Reviewed: Yes Vitals/I&O/Wt Last Vital Signs Temp 97.9 F 11/21/21 07:23 Pulse 63 11/21/21 07:23 Resp 18 11/21/21 07:23 BP 172/89 11/21/21 07:23 Pulse Ox 94 11/21/21 07:23 O2 Del Method 11/21/21 07:23 11/20/21 11/21/21 11/21/21 22:59 06:59 14:59 Intake Total 240 / 240 Output Total 600 / 600 550 / 1150 Balance -360 / -360 -550 / -910 Weight last 48 hrs Weight 127.006 kg Physical Exam Narrative: General exam no distress, conversant Neuro no obvious focal deficits Neck is supple without lymphadenopathy or thyromegaly Cardiovascular regular rate and rhythm without murmur, no S3 or S4 Lungs clear bilaterally. No wheezing or crackles Abdomen is soft nontender positive bowel sounds. No obvious organomegaly Extremities no cyanosis clubbing or edema. Skin without rash Data : 11/21/21 04:36 11/21/21 04:36 A&P Assessment and plan (1) Closed right hip fracture: Patient presents with fall, and has sustained a right hip fracture. Sustained this 2 days prior to admission Bedrest currently He is urinating well. Place Grajeda prior to surgery but no urgency.. This can be done directly preoperative. Orthopedic consultation appreciated Continue DVT prophylaxis postoperative No direct contraindications for surgery (2) Fall: From the patient's description he had no prodrome that he was going to fall. Although I suspect this is a mechanical fall cannot rule out other cause completely. Previous history of CVA could predispose him to fall as well. He has no obvious focal neurologic deficit currently. He was placed on telemetry. No arrhythmias currently. Carotid duplex, echocardiogram showed no changes from 2019. Atherosclerosis noted on carotid duplex but nothing flow-limiting. Echocardiogram demonstrates preserved EF. Secondary to past history of CVA, known carotid and heart disease we will check echocardiogram and carotid duplex. (3) History of cerebrovascular accident: He has not been taking preventative medication for this or his heart disease. Statin initiated last night. LDL 103 Initiate aspirin 81 mg daily (4) CAD (coronary artery disease): See above Monitor blood pressure. Continue aspirin and statin initiated this hospital stay Beta-zana was considered but some bradycardia through the night, likely related to untreated sleep apnea. MIS inhibitor will be initiated first. (5) HTN (hypertension): Blood pressure has been elevated, as I suspect it has been at home. Following surgery initiate lisinopril 10 mg daily. Qualifiers: Hypertension type: essential hypertension Qualified Code(s): I10 - Essential (primary) hypertension (6) Diabetes: A1c checked and elevated, 8.7. Not ideal control. Consider adding SGLT2 inhibitor to her regimen following surgery. Hold metformin currently Placed on sliding scale insulin Plan History of obstructive sleep apnea. He has not been using his CPAP. 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
[2021-11-21] MEDS: insulin lispro 100 unit/1 mL SUBCUT ×3 (08:31→21:53)
--- NOTE | 2021-11-21 08:50 | PC.CHAP ---
Pastoral Care Encounter/Spiritual Assessment Type of Contact [] Declined carpet loom fixer visit [] Patient/Family/Request visit [] Outpatient visit [] Follow-up visit [] Physician referral [] Code/Alert [x] Routine visit [] Staff referral [] Actively dying [] Patient sleeping [] Family support [] [] Out of room [] Palliative care [] [] Receiving care in room [] Pre-surgical visit [] Trauma [] Long length of stay [] ICU visit [] Other: Relational/Emotional Strength [x] Patient feels connected with others/family/visitors/staff [] Distress [] Loneliness/isolation [] Abandonment Spirituality of Patient [x] Person of Catie [] Attends Scientology of their [place] [] Believes in Prayer [] Reads Bible or Lutheran materials [x] There are Spiritual issues to be addressed 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 Interventions [x] Prayer [x] Active listening [x] Non-anxious presence [x] Spiritual/emotional support [] Crisis/trauma care [] Spiritual counseling [] Bereavement support [] Provided bereavement packet [] Provided Bible/devotional materials [] Provided toy/stuffed animal, coloring book to patient or family member [] Provided Communion [] Anointing/[place] [] Salvation [x] Completed spiritual assessment [] Other: Impact on Illness or Injury [] Angry [] Fearful [] Anxious [] Often cries [] Exhaustion [] Unable to work [] Unable to attend adventism [] Unable to walk/stand [] Unable to read [] Unable to drive [] Unable to eat/drink [] Unable to sleep [] Unable to be with family [] Patient intubated [] Other: Summary Pt broke hip and is awaiting surgery today. We spoke of being a little nervous about the procedure. Pt has five children and some grand children but has little to no contact with most of them. He does live with one son and is thankful he was present when he fell. Pt was for 25 years but the marriage ended in divorce 3-4 years ago. When asked if he was a person of catie, Pt stated yes and no. In his explanation he seemed to be sorting through things spiritually. Prayer was offered and accepted. Time spent with patient 15 min
--- NOTE | 2021-11-21 11:29 | P.PN_ITS ---
Subjective Subjective: Patient seen and examined this morning. Patient's pain controlled. Continues to complain of right hip pain. Been worked up by internal medicine team and medically optimized and cleared for surgery today. We we will proceed with right hip hemiarthroplasty today. Vitals/I&O/Wt Last Vital Signs Temp 97.5 F L 11/21/21 11:26 Pulse 62 11/21/21 11:26 Resp 18 11/21/21 11:26 BP 174/87 11/21/21 11:26 Pulse Ox 96 11/21/21 11:26 O2 Del Method 11/21/21 11:26 11/20/21 11/21/21 11/21/21 22:59 06:59 14:59 Intake Total 240 / 240 Output Total 600 / 600 550 / 1150 Balance -360 / -360 -550 / -910 Weight last 48 hrs Weight 280 lb Physical Exam Narrative: Tenderness to palpation right hip, patient has a positive logroll unable to perform extensive field examination secondary to pain. He has swelling over the right hip. No open wound noted. Patient able to wiggle toes plantarflex dorsiflex ankle with sensation tact light touch to the SPN/DPN/tibial/saphenous/sural nerve distribution. Distal pulses palpable. Data : 11/21/21 04:36 11/21/21 04:36 Xray Ortho: My impression: X-rays reviewed and demonstrate displaced subcapital femoral neck fracture. A&P Assessment and plan (1) Displaced fracture of right femoral neck: Plan - N.p.o. since midnight -Patient received appropriate preoperative antibiotics -Hold a.m. anticoagulation -Obtain consent -Appreciate internal medicine's medical management and optimization for surgery -Pain control -Nonweightbearing right lower extremity -Plan for OR today with Dr. Galvan for right hip hemiarthroplasty utilizing a posterior approach and press-fit fixation Attestations Medical Necessity Statement*: Patient sustained right hip fracture requiring surgical intervention and postoperative monitoring. Coding Level of Care Code Acute Building Maintenance Supervisor for Naman Orlando Diagnoses Displaced fracture of right femoral neck S72.001A Time Spent (min) 25
--- NOTE | 2021-11-21 11:32 | W.PM.OPSUD ---
Surgery/Procedure H&P Update DATE OF PROCEDURE: November 21, 2021 DATE H&P PERFORMED: 11/20/21 CHANGES TO PREVIOUS DOCUMENTATION: None PREOP DIAGNOSIS: Right displaced femoral neck fracture PRIMARY INDICATION FOR PROCEDURE: Right displaced femoral neck fracture PLANNED PROCEDURE: Operation Date: 11/21/21 12:00 Proposed Procedures p Hemiarthroplasty Hip(Right) - Al Galvan DO
[2021-11-21 11:34] LABS: Glucose Point of Care 163 mg/dL (70-110)
[2021-11-21] MEDS: sodium chloride 0.9% 1,000 ML 30 ML IV (11:39)
[2021-11-21] MEDS: ceFAZolin 2,000 MG in sodium chloride 0.9% (plus) 50 ML 100 MG IV ×2 (12:10→20:39)
[2021-11-21] MEDS: tranexamic acid 1,000 mg/10mL SDV 1000 MG IV (12:50)
--- NOTE | 2021-11-21 13:24 | ANES.PREANE2 ---
Pre-Anesthetic Assessment Height/Weight: Height 1.78 m Weight 127.006 kg Temp Pulse Resp BP Pulse Ox O2 Del Method 97.5 F L 62 18 174/87 96 11/21/21 11:26 11/21/21 11:26 11/21/21 11:26 11/21/21 11:26 11/21/21 11:11/21/21 11:26 Preop Diagnosis: Right displaced femoral neck fracture Operation Date: 11/21/21 12:00 Proposed Procedures p Hemiarthroplasty Hip(Right) - Al Galvan DO Familial anesthetic complications: none Was Beta Trixie taken within 24 hours: N/A Was Clonidine taken within 24 hours: N/A Last intake: Intake Last Liquid Date 11/20/21 Last Liquid Time 22:00 Last Solid Date 11/20/21 Last Solid Time 22:00 Social No alcohol and No tobacco Exam alert, oriented x 3, clear to auscultation bilaterally and regular rate & rhythm Airway Submandibular: within normal limits Cervical ROM: within normal limits Mallampati: Class II Dentition: chipped Pulmonary Sleep Apnea CV/HEM Coronary Artery Disease, Hypertension and Peripheral Vascular Disease Metabolic Diabetes Mellitus, Hyperlipidemia and Morbid Obesity Neuropsych Cerebrovascular Accident Anesthetic Plan ASA status: 3 Anesthesia: Regional (specify below) (SAB) Medications/Allergies Home Medications Medication Instructions Recorded Confirmed Last Taken Type metformin 1,000 mg tablet 1,000 mg PO BID 05/07/19 11/20/21 11/19/21 History Allergies Allergy/AdvReac Type Severity Reaction Status Date / Time tramadol AdvReac ADR-Headach Verified 11/20/21 07:29 e Current Medications Generic Name Dose Route Start Last Admin Trade Name Nora PRN Reason Stop Dose Admin Aspirin 81 mg 11/20/21 09:45 11/21/21 07:48 Aspirin 81 Mg Ec Tablet PO Not Given DAILY ADRIAN Atorvastatin Calcium 40 mg 11/20/21 21:00 11/20/21 21:07 Atorvastatin 40 Mg Tablet PO 40 mg BEDTIME ADRIAN Administration Docusate Sodium 100 mg 11/20/21 18:00 11/21/21 07:48 Docusate Sodium 100 Mg Capsule PO Not Given BID ADRIAN Enoxaparin Sodium 40 mg 11/20/21 12:00 11/21/21 11:40 Enoxaparin 40 Mg/0.4 Ml Syringe SUBCUT Not Given Q24H ADRIAN Gentamicin Sulfate 160 mg 11/21/21 13:09 11/21/21 13:09 Gentamicin 40 Mg/Ml Sdv 2 Ml IRRIGATION 11/21/21 13:10 160 mg ONCE ONE Administration Sodium Chloride 1,000 mls @ 30 mls/hr 11/21/21 11:30 11/21/21 11:39 Sodium Chloride 0.9% IV 11/22/21 11:29 30 mls/hr .Q24H ADRIAN Administration Insulin Human Lispro 0 unit 11/20/21 12:00 11/21/21 08:31 Insulin Lispro 100 Unit/1 Ml SUBCUT 4 unit WM&BEDTIME ADRIAN Administration Protocol Oxycodone HCl 5 mg 11/20/21 11:38 11/21/21 04:07 Oxycodone 5 Mg Ir Tab/Cap PO 5 mg Q6H PRN Administration SEVERE PAIN Tranexamic Acid 1,000 mg 11/21/21 13:14 11/21/21 12:50 Tranexamic Acid 1,000 Mg/10ml Sdv IV 11/21/21 13:15 1,000 mg ONCE ONE Administration PFSH Anesthesia Medical History (Updated 11/20/21 @ 16:20 by Al Galvan DO) CAD (coronary artery disease) Carotid stenosis Diabetes Displaced fracture of right femoral neck HTN (hypertension) Hyperlipidemia Sleep apnea Stroke Surgical History History of appendectomy History of tonsillectomy Family History Other Diabetes Hyperlipidemia Hypertension Social History (Updated 11/20/21 @ 09:47 by John Harp MD) Smoking and tobacco status: never smoked Alcohol intake: never Substance/Drug Use: current Substance/Drug use type: Marijuana Data Anesthesia : 11/21/21 04:36 11/21/21 04:36 Short CBC 11/20/21 11/21/21 Range/Units 07:10 04:36 WBC 6.6 5.9 (4.0-10.0) 10^3/uL Hgb 15.4 15.2 (11.7-16.6) g/dL Hct 46.6 45.4 (42.0-52.0) % MCV 82.9 83.0 (80-94) fl Plt Count 158 190 (130-400) 10^3/cmm Neut % (Auto) 60.4 54.2 % Neut # (Auto) 4.01 3.21 (1.8-7.7) 10^3/uL BMP 11/20/21 11/21/21 07:10 04:36 Sodium 135 L 140 Potassium 3.7 4.1 Chloride 98 102 Carbon Dioxide 22 26 BUN 21 H 16 Creatinine 0.9 0.9 Glucose 273 H 211 H Calcium 8.7 8.9 Cardiac Enzymes 11/20/21 11/20/21 11/20/21 Range/Units 07:10 07:10 09:55 Creatine Kinase 202 (39-308) U/L Troponin T Baseline 15 (0-15) ng/L Troponin T 120 Minute 15.00 (0-15) ng/L Delta Troponin T 0 (0-10) ABS# Troponin T Hi Sens 6Hr (0-15) ng/L Troponin T Hi Sens 6Hr Delta (0-12) ng/L 11/20/21 Range/Units 13:04 Creatine Kinase (39-308) U/L Troponin T Baseline (0-15) ng/L Troponin T 120 Minute (0-15) ng/L Delta Troponin T (0-10) ABS# Troponin T Hi Sens 6Hr 14.79 (0-15) ng/L Troponin T Hi Sens 6Hr Delta -0.21 L (0-12) ng/L Liver Function 11/20/21 Range/Units 07:10 Total Bilirubin 0.7 (0.15-1.2) mg/dL AST 20 (0-40) U/L ALT 20 (0-41) U/L Alkaline Phosphatase 64 (40-130) U/L Albumin 3.5 (3.5-5.2) g/dL Urine 11/20/21 Range/Units 07:55 Urine Color Dark yellow (Yellow) Urine Appearance Clear (CLEAR) Urine pH 5 (5-7) Ur Specific Whitt 1.020 (1.005-1.030) Urine Protein 2+ H (Negative) Urine Glucose (UA) 4+ H (Normal) Urine Ketones 2+ H (Negative) Urine Nitrate Negative (Negative) Urine Bilirubin Neg (Negative) Ur Leukocyte Esterase Negative (Negative) Urine RBC Rare (0-2) /hpf Urine WBC 0-4 H (0-5) /hpf Blood Bank 11/20/21 09:55 Blood Type O Positive Rho(D) Type Positive Antibody Screen Negative Coags 11/20/21 07:10 PT 13.00 INR 0.96 APTT 23.8 L Cardiac Studies: Echocardiogram 11/20/21
--- NOTE | 2021-11-21 14:00 | P.OP_ITS ---
Brief Operative Note Date of procedure: 11/21/21 Pre-op diagnosis: Displaced right femoral neck fracture Post-op diagnosis: same Procedure Done: Right hip hemiarthroplasty Surgeon: Al Galvan Estimated blood loss (mL): 125 Complications: None Post-op Plan: Patient recover in PACU. Patient received spinal anesthesia. Grajeda in place and will be removed tomorrow morning. Received appropriate operative antibiotics as well as DVT prophylaxis may be weightbearing as tolerated to the right lower extremity. Posterior hip precautions. Return to the floor. Condition: stable Disposition: floor Coding Level of Care Code Acute Network Engineering Advisor for Naman Orlando
--- NOTE | 2021-11-21 14:00 | PM.OP ---
Operative Report Date of procedure: November 22, 2021 Pre-op diagnosis: Preop Diagnosis Right displaced femoral neck fracture Post-op diagnosis: Same Procedure done: Right hip hemiarthroplasty, posterior approach Implants: [place] Accolade two 132 degree neck size 4 femoral stem Bipolar head component 49 mm with inner diameter 28 mm Femoral head 28 mm diameter with +0 mm offset Surgeon: Al Galvan DO Estimated blood loss (mL): 125 IV fluids: See anesthesia record Complications: None Condition: stable Disposition: floor Brief History: Patient sustained a ground-level fall prior to emergency department visit. He was found to have a displaced right femoral neck fracture. He was seen and evaluated by myself on his admission and findings consistent with preoperative diagnosis. We had detailed discussion with him as well as his son about operative and nonoperative intervention through shared decision making elected proceed with right hip hemiarthroplasty. Patient's age is 55 however biologically with his significant comorbidities he does appear to be older than his stated age. His bone quality does show more of a door a classification and at this point time he is a Confucianism as well as given his comorbidities elected to proceed with a press-fit fixation through a posterior approach. I feel the hemiarthroplasty would be better for this patient as less dislocation rate compared to a total hip arthroplasty. Also worry about excessive blood loss with patient being a Confucianism and trying to decrease surgical time. Given his bone quality from a door classification standpoint feel he is appropriate for press-fit fixation. We had detailed discussion about all these treatment options and her plan for surgery understands risk benefits complications alternatives to each and he agrees to proceed with surgical intervention. All questions answered. Patient consent was obtained and the preoperative holding area. Patient was admitted by the internal medicine team and medically optimized for surgical intervention. Procedure: Patient seen evaluated in the preoperative holding area. The consent was reviewed with patient as well as correct extremity was marked. Son was at bedside all questions answered. Patient was seen evaluated by anesthesia department elected for spinal anesthesia. Once cleared by the preoperative and anesthesia team was taken to the OR and underwent spinal anesthesia once appropriately anesthetized was transferred to the OR table and placed in a lateral decubitus position with the right hip up. He was secured with a pegboard table. All bony prominences were well-padded and patient was appropriately secured to the table. Patient received appropriate preoperative antibiotics. Final timeout performed. Right upper extremity was then prepped and draped in standard orthopedic fashion. A standard posterior approach to the right hip was performed sharp scalpel excision through skin and subcutaneous tissue. Dissection carried directly over fascia which was split longitudinally and Charnley retractor placed. This point bursa was excised and a Hohmann was placed underneath the abductors hip was placed under internal rotation and a full-thickness sleeve of short external rotators and capsule was removed anterior to the posterior aspect of the hip. Care was made to protect the sciatic nerve throughout this case. Fracture hematoma immediately encountered during capsulotomy. This full thick sleeve was then taken posterior to protect the nerve. We then dislocated the hip and identified the fracture site. Dissection carried down to the lesser hormone was placed underneath the lesser to evaluate for residual neck length and neck cut that needed to be made. 1 fingerbreadth above the lesser was then marked roughly 15 mm. I then utilized an oscillating saw with care to place a Hohmann above and below the neck to protect all structures. Fresh neck cut was then made bone was excised. At this point then I removed the femoral head and this was appropriately sized on the back table being a 49 mm. I then placed a Hohmann in front of the anterior aspect of the acetabulum to inspect the acetabulum which overall has well-maintained cartilage with no significant arthritic changes. No loose bodies were noted thorough irrigation performed labrum was left intact and a trial of 49 mm head was placed with excellent suction fit. At this point I then proceeded with femoral stem preparation. Bovie and small rongeur was used to clear out the soft tissue at the superior shoulder to allow me to get lateral with my box osteotome once this was cleared I utilized a box osteotome to open up the canal. Canal finder was then used. This point I utilized a lateralizing reamer and rattail rasp to obtain appropriate lateralization for my implant placement. Once this was performed I then marked appropriate version by Kari in the calcar with care to be appropriately anteverted. This point in sequential fashion I then broached up to a size 4 stem which had excellent rotational fixation. This was flushed with the calcar. I then placed a standard neck and bipolar femoral head in place and hip was reduced. At this position patient had excellent leg lengths he had excellent stability with appropriate shock. Did not dislocate with excessive flexion and internal rotation this point this was the correct implant for this patient. Patient's hip was then dislocated the ball and neck were removed as well as the femoral stem with care to not further rasp. At this point in time the appropriate size implant was then opened of a size 4 Accolade 2 [place] stem as well as the appropriate size 44 mm ball with a standard offset 28 mm femoral head for bipolar hip hemiarthroplasty. I then impacted the size 4 femoral stem into appropriate position which was exactly as my trial implant. I then impacted my femoral head bipolar implant which had excellent fixation. At this point I then reduced the hip myself. This had excellent leg lengths as well as excellent stability with appropriate shock. Wound bed was then thoroughly irrigated. The appropriate External Rotator Repair Was Performed with Ethibond Suture and Bone Tunnels and Was Passed in Repaired over Bone Tunnel. Irrigation Performed Once Again. The fascial band was then closed with running oh strata fix and the skin was closed in layered fashion of deep and subcutaneous running strata fix suture and sravanthi for the skin. Incision was then covered with a Silverlon dressing. Patient was then placed in the hip abduction pillow. Patient was then awakened from anesthesia transferred from the OR table onto the hospital bed in safe condition. PACU in stable condition Disposition: Patient taken to PACU in stable condition. Will be posterior hip precautions weightbearing as tolerated right lower extremity hip abduction pillow on in place. Will receive appropriate discharge instructions as well as DVT prophylaxis and pain medication will return to the floor. Receive appropriate postoperative antibiotics. Silverlon dressing should remain on in place unless becomes saturated. Patient to follow-up with me in office in 2 weeks.
--- NOTE | 2021-11-21 14:00 | PM.PACU ---
PACU note Narrative: Patient recovering comfortably in PACU. Patient awake and alert. Patient spinal anesthesia still in effect. Abduction pillow on in place. Dressings clean dry and intact. Patient recover in PACU and returned to the floor. Toes warm well perfused. Distal pulses palpable. Exam: awake (See narrative note for details) Disposition: back to floor
--- NOTE | 2021-11-21 14:17 | XR_ITS ---
WS: [id number] Exam: XR hip RT 2-3V wo/w pel* [id number] Date/Time of Exam: 11/21/2021 2:28 PM Reason For Exam: hip jean Comparison 11/20/2021. A right hemiprosthesis has been placed and appears to be in satisfactory position. Postoperative martnies ges in the adjacent soft tissues. Surgical skin clips noted laterally. XR/XR hip RT 2-3V wo/w pel* [id number] IMPRESSION: 1. Right hip hemiprosthesis appearing be in satisfactory position
--- NOTE | 2021-11-21 14:27 | SUR.PHASEI ---
1402 PT TO PACU 5 PT SLEEPY WITH ORAL AIRWAY IN PLACE, GOOD RESP NOTED VSS RT HIP DRESSING D/I
--- NOTE | 2021-11-21 14:35 | SUR.PHASEI ---
1402 CONTINUED MONITOR SR WITH NO ECTOPY, IV TO LT WRIST WITH NS 100ML UP AT KVO RATE PER GRAVITY, PT HAS FIRST ICE TO RT HIP DRESSING D/I ABD PILLOW IN PLACE X RAY HERE, PT WAS A SPINAL ANESTHESIA PT RT FOOT PINK WARM WITH STRONG REGULAR PULSE NOTED AND MRAKED LT LEG SCD ON AND WORKING WHEELER CATHETER TO LT INNER THIGH WITH YELLOW URINE TO TUBING AND BAG, APPROX 50 ML IN BAG NOT EMPTIED 1405 PT AWAKES ORAL AIRWAY OUT PT VERBALLY DENIES PAIN AND NAUSEA, PT HOB AT 30 DEGREES VSS PT HAS NORMAL SENSATION TO T 11 AREE, PT UNABLE TO MOVE FEET OR THIGHS AT THIS TIME. X RAYS DONE AT BEDSIDE [address] [facility] AND TALKED WITH PT, X RAYS GOOD, VSS DRESSING D/I AND UNHCHANGED. PT DISTAL FOOT WARM PINK WITH STRONG PULSE NOTED.
--- NOTE | 2021-11-21 15:39 | ANE.PACU2 ---
Inpatient post-anesthesia follow up: Airway intact: Yes Vital signs: Temperature 97.2 F Pulse Rate 57 Respiratory Rate 18 Blood Pressure 169/83 Pulse Oximetry 98 Oxygen Delivery Me thod Room Air Oxygen Flow Rate 8 Fraction of Inspir ed Oxygen Hydration adequate: Yes Pain level: 2 Mental status: Baseline
--- NOTE | 2021-11-21 16:29 | PC.NURSE ---
Patient arrived back to floor from surgery. Patient is alert and oriented. No drainage noted at the incision site. Post op vital signs and education have been given. Nurse will continue to monitor.
[2021-11-21 16:33] LABS: Glucose Point of Care 187 mg/dL (70-110)
[2021-11-21] MEDS: iron polysaccharide complex 150 mg Capsule PO (17:58)
[2021-11-21] MEDS: sennosides-docusate Tablet 2 TAB PO (17:58)
[2021-11-21] MEDS: docusate sodium 100 mg Capsule PO (17:58)
[2021-11-21] MEDS: calcium carb-vit d 600mg/400unit 1 Tablet 1 EACH PO (17:58)
[2021-11-21] MEDS: chlorhexidine gluconate 0.12% Btl 473 mL 30 ML MUCOUS MEM (20:38)
[2021-11-21] MEDS: atorvastatin 40 mg Tablet PO (20:38)
[2021-11-21] MEDS: acetaminophen 500 mg Tablet 1000 MG PO (20:38)
[2021-11-21 20:39] LABS: Glucose Point of Care 197 mg/dL (70-110)
[2021-11-21] MEDS: hyDRALAzine 50 mg Tablet PO (22:01)
[2021-11-22] VITALS (9 sets, daily range): BP systolic 129–195; BP diastolic 62–93; PULSE 72–109; RESP 15–24; TEMP 36.1–36.9; O2SAT 95–98
[2021-11-22] MEDS: acetaminophen 500 mg Tablet 1000 MG PO ×3 (04:45→21:12)
[2021-11-22] MEDS: ceFAZolin 2,000 MG in sodium chloride 0.9% (plus) 50 ML 100 MG IV ×2 (04:45→12:33)
[2021-11-22 05:20] LABS: Basophils % 0.2 %; Eosinophils # 0.1 10^3/uL (0.0-0.8); Eosinophils % 0.7 %; Hematocrit 44.7 % (42.0-52.0); Lymphocytes # 1.3 10^3/uL (0.8-4.8); Mean Corpuscular HGB Conc 33.6 g/dL (30.0-36.0); Mean Corpuscular Hemoglobin 27.5 pg (28.0-34.0); Mean Platelet Volume 11.5 fL (7.4-10.4); Monocytes # 0.9 10^3/uL (0.2-0.9); Monocytes % 9.9 %; Neutrophils # 6.63 10^3/uL (1.8-7.7); Neutrophils % 74.4 %; Nucleated Red Blood Cells % 0 %; Platelet Count 224 10^3/cmm (130-400); Red Blood Count 5.45 10^6/uL (4.1-5.3); White Blood Count 8.9 10^3/uL (4.0-10.0)
[2021-11-22 05:44] LABS: Anion Gap 17.6 (5-19); Blood Urea Nitrogen 11 mg/dL (6-20); Carbon Dioxide 23 mmol/L (22-29); Chloride 97 mmol/L (98-107); Glucose 211 mg/dL (65-115); Osmolality Calculated 284 mOsm/kg (285-295); Potassium 3.6 mmol/L (3.5-5.1); Sodium 134 mmol/L (136-145)
--- NOTE | 2021-11-22 06:27 | PC.NURSE ---
At 0600 this nurse entered room and explained to patient that there were orders to have the landon catheter removed and get up to the chair. The patient reported understanding. The nurse removed the stat-lock with alcohol swabs, 10 ml syringe used to deflate the catheter balloon, and patient instructed to take a deep breath in and out. At this time the landon was removed and the patient tolerated well. Then, this nurse and the aid assisted the patient to the side of the bed. A walker and gait belt were used to assist patient to a standing position and then to the chair. The patient tolerated well.
[2021-11-22 06:42] LABS: Glucose Point of Care 246 mg/dL (70-110)
[2021-11-22] MEDS: insulin lispro 100 unit/1 mL SUBCUT ×4 (08:00→22:29)
[2021-11-22] MEDS: aspirin 81 mg EC Tablet PO (08:01)
[2021-11-22] MEDS: cholecalciferol (vitamin D3) 1,000 unit Tablet 1000 UNIT PO (08:01)
[2021-11-22] MEDS: iron polysaccharide complex 150 mg Capsule PO ×2 (08:01→17:19)
[2021-11-22] MEDS: docusate sodium 100 mg Capsule PO ×2 (08:02→17:20)
[2021-11-22] MEDS: mupirocin oint 22 gm 1 APPLIC NASAL ×2 (08:02→17:20)
[2021-11-22] MEDS: calcium carb-vit d 600mg/400unit 1 Tablet 1 EACH PO ×2 (08:02→17:19)
[2021-11-22] MEDS: sennosides-docusate Tablet 2 TAB PO ×2 (08:02→17:19)
[2021-11-22] MEDS: multivitamin therapeutic Tablet 1 TAB PO (08:02)
[2021-11-22] MEDS: lisinopril 10 mg Tablet PO (08:02)
[2021-11-22] MEDS: chlorhexidine gluconate 0.12% Btl 473 mL 30 ML MUCOUS MEM ×4 (08:43→21:12)
[2021-11-22] MEDS: oxyCODONE 5 mg IR Tab/Cap PO (08:44)
--- NOTE | 2021-11-22 10:50 | PC.NURSE ---
Pt insisted on using toilet, Ambulated pt to [facility] and upon ambulating back to bed i noticed he removed his surgical bandage. Incision was clean dry and intact. I reinforced bandage with tape in original spot
[2021-11-22 11:01] LABS: Glucose Point of Care 412 mg/dL (70-110)
--- NOTE | 2021-11-22 12:10 | P.PN_ITS ---
Subjective Subjective: Patient seen and evaluated this afternoon. Patient up in chair at bedside finished lunch and just finishing up with physical therapy. At this point time still having some issues with this maintaining hip precautions and safety for transfers therapy expressed concerns at this point time feel patient would benefit from additional day of therapy. No other issues over the night per patient. Son at bedside. Patient has stood up and ambulated around the hospital room. Pain controlled with medications. No other complaints at this time. Vitals/I&O/Wt Last Vital Signs Temp 97.6 F 11/22/21 20:24 Pulse 109 H 11/22/21 20:24 Resp 15 11/22/21 20:24 BP 134/90 11/22/21 20:24 Pulse Ox 95 11/22/21 20:24 O2 Del Method 11/22/21 15:32 O2 Flow Rate 8 11/21/21 14:05 11/22/21 11/22/21 11/22/21 06:59 14:59 22:59 Intake Total 280 / 1500 530 / 530 Balance 280 / 1225 530 / 530 Physical Exam Narrative: Examination: Examination of the right hip incision shows Silverlon dressing on in place clean dry and intact with no evidence of saturation. Normal postoperative swelling her right hip. Compartments are soft and compressible. Right lower extremity is warm well perfused. Patient endorses sensation intact light touch of the SPN/DPN/tibial/saphenous/sural nerve distribution. Distal pulses palpable. Patient is able to wiggle toes plantarflex dorsiflex ankle. Urinary Catheter Management: Grajeda: Cath Placed During This Visit: yes, but has since been removed by the nurse Reason for Continuing Indwelling Catheter: Perioperative Use in Selected Surgeries Urinary Catheter Date of Insertion: 11/21/21 Urinary Catheter Time of Insertion: 12:25 Date Urinary Catheter Removed: 11/22/21 Time Urinary Catheter Discontinued: 06:00 Data : 11/22/21 04:31 11/22/21 04:31 Xray Ortho: My impression: Postop x-rays demonstrate stable right hip hemiarthroplasty. A&P Assessment and plan (1) Displaced fracture of right femoral neck: Plan - Maintain diet -DC Grajeda today -PT/OT -Pain control -Complete postoperative antibiotics -Appreciate internal medicine medical management -Weightbearing as tolerated right lower extremity -Posterior hip precautions -DVT prophylaxis?Lovenox -A.m. labs reviewed -Patient will need another day with physical therapy for strengthening and safe training for transfers. Attestations Medical Necessity Statement*: Patient admitted for hospitalization secondary to right hip fracture and surgical intervention with postoperative monitoring. Coding Level of Care Code Acute Manufacturing Weaver for Naman Orlando Diagnoses Displaced fracture of right femoral neck S72.001A
[2021-11-22] MEDS: enoxaparin 40 mg/0.4 mL Syringe SUBCUT (12:33)
--- NOTE | 2021-11-22 13:02 | PM.PN ---
Subjective Subjective: Cal reports he is doing ok. Pain is under control. Medications: Reviewed: Yes Vitals/I&O/Wt Last Vital Signs Temp 98.0 F 11/22/21 11:47 Pulse 88 11/22/21 11:47 Resp 16 11/22/21 11:47 BP 173/91 11/22/21 11:47 Pulse Ox 96 11/22/21 11:47 O2 Del Method 11/22/21 11:47 O2 Flow Rate 8 11/21/21 14:05 11/21/21 11/22/21 11/22/21 22:59 06:59 14:59 Intake Total 1170 / 1220 280 / 1500 480 / 480 Balance 1170 / 945 280 / 1225 480 / 480 Physical Exam Narrative: General exam no distress Neuro no obvious focal deficits Neck is supple without lymphadenopathy or thyromegaly Cardiovascular regular rate and rhythm without murmur, no S3 or S4 Lungs clear bilaterally. No wheezing or crackles Abdomen is soft nontender positive bowel sounds. No obvious organomegaly Extremities no cyanosis clubbing or edema. Skin without rash Urinary Catheter Management: Grajeda: Cath Placed During This Visit: yes, but has since been removed by the nurse Reason for Continuing Indwelling Catheter: Perioperative Use in Selected Surgeries Urinary Catheter Date of Insertion: 11/21/21 Urinary Catheter Time of Insertion: 12:25 Date Urinary Catheter Removed: 11/22/21 Time Urinary Catheter Discontinued: 06:00 Data : 11/22/21 04:31 11/22/21 04:31 A&P Assessment and plan (1) Closed right hip fracture: Patient presents with fall, and has sustained a right hip fracture. Sustained this 2 days prior to admission Orthopedic consultation appreciated Underwent surgery yesterday, currently postoperative day number one. (2) Fall: From the patient's description he had no prodrome that he was going to fall. Although I suspect this is a mechanical fall cannot rule out other cause completely. Previous history of CVA could predispose him to fall as well. He has no obvious focal neurologic deficit currently. He was placed on telemetry. No arrhythmias currently. Carotid duplex, echocardiogram showed no changes from 2019. Atherosclerosis noted on carotid duplex but nothing flow-limiting. Echocardiogram demonstrates preserved EF. Discussed with ortho. He will need one more day for PT to reduce risk of falls secondary to hip surgery. (3) History of cerebrovascular accident: He has not been taking preventative medication for this or his heart disease. Statin initiated last night. LDL 103 Continue aspirin 81 mg daily (4) CAD (coronary artery disease): See above Monitor blood pressure. Continue aspirin and statin initiated this hospital stay Beta-zana was considered but some bradycardia through the night, likely related to untreated sleep apnea. Lisinopril intitated. (5) HTN (hypertension): Blood pressure has been elevated, as I suspect it has been at home. Lisinopril initiated Qualifiers: Hypertension type: essential hypertension Qualified Code(s): I10 - Essential (primary) hypertension (6) Diabetes: A1c checked and elevated, 8.7. Not ideal control. Consider adding SGLT2 inhibitor to her regimenon discharge Hold metformin currently Placed on sliding scale insulin. Increase to moderate. Plan History of obstructive sleep apnea. He has not been using his CPAP. 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
[2021-11-22 17:02] LABS: Glucose Point of Care 246 mg/dL (70-110)
--- NOTE | 2021-11-22 18:54 | PC.NURSE ---
Report given to Tianna GARG at this time
[2021-11-22] MEDS: atorvastatin 40 mg Tablet PO (21:12)
[2021-11-22 21:36] LABS: Glucose Point of Care 370 mg/dL (70-110)
[2021-11-23] VITALS: BP 181/98; PULSE 104; RESP 20; TEMP 36.7; O2SAT 93
[2021-11-23 04:55] VITALS: BP 137/65; PULSE 101; RESP 16; TEMP 36.7; O2SAT 94
[2021-11-23 05:06] LABS: Basophils % 0.2 %; Eosinophils % 0.1 %; Hemoglobin 15.7 g/dL (11.7-16.6); Lymphocytes # 1.3 10^3/uL (0.8-4.8); Lymphocytes % 10.5 %; Mean Corpuscular HGB Conc 34.1 g/dL (30.0-36.0); Mean Corpuscular Hemoglobin 27.7 pg (28.0-34.0); Mean Corpuscular Volume 81.1 fl (80-94); Monocytes # 1.3 10^3/uL (0.2-0.9); Monocytes % 10.4 %; Neutrophils # 9.42 10^3/uL (1.8-7.7); Neutrophils % 78.1 %; Nucleated Red Blood Cells % 0 %; Platelet Count 257 10^3/cmm (130-400); Red Blood Count 5.67 10^6/uL (4.1-5.3); Red Cell Distribution Width 13.1 % (12.1-15.1); White Blood Count 12.1 10^3/uL (4.0-10.0)
[2021-11-23 06:16] LABS: Glucose Point of Care 248 mg/dL (70-110)
[2021-11-23] MEDS: acetaminophen 500 mg Tablet 1000 MG PO ×2 (06:24→13:14)
[2021-11-23 08:00] VITALS: BP 158/79; PULSE 81; RESP 16; TEMP 36.4; O2SAT 96
--- NOTE | 2021-11-23 08:25 | PM.PN ---
Subjective Subjective: Patient seen and evaluated this morning. He is sitting up at bedside. Patient has scratched and partially removed his dressing. He does appear to have urinated in the bed. Nursing was informed and will clean incision and redress patient. This point he is worked with therapy. We will see how he does with therapy today for potential discharge later today. No other issues overnight. Hemoglobin stable. Vitals/I&O/Wt Last Vital Signs Temp 98.1 F 11/23/21 04:55 Pulse 101 H 11/23/21 04:55 Resp 16 11/23/21 04:55 BP 137/65 11/23/21 04:55 Pulse Ox 94 11/23/21 04:55 O2 Del Method 11/22/21 15:32 O2 Flow Rate 8 11/21/21 14:05 11/22/21 11/23/21 11/23/21 22:59 06:59 14:59 Intake Total 360 / 890 480 / 1370 Balance 360 / 890 480 / 1370 Weight last 48 hrs Weight 218 lb 11.2 oz Physical Exam Narrative: Examination: Examination of the right hip incision shows Silverlon dressing is peeled off and sravanthi inspected incision is clean dry and intact no signs of saturation or drainage. Bed is soaked in urine. Normal postoperative swelling her right hip. Compartments are soft and compressible. Right lower extremity is warm well perfused. Patient endorses sensation intact light touch of the SPN/DPN/tibial/saphenous/sural nerve distribution. Distal pulses palpable. Patient is able to wiggle toes plantarflex dorsiflex ankle. Urinary Catheter Management: Grajeda: Cath Placed During This Visit: yes, but has since been removed by the nurse Reason for Continuing Indwelling Catheter: Perioperative Use in Selected Surgeries Urinary Catheter Date of Insertion: 11/21/21 Urinary Catheter Time of Insertion: 12:25 Date Urinary Catheter Removed: 11/22/21 Time Urinary Catheter Discontinued: 06:00 Data : 11/23/21 04:00 11/22/21 04:31 A&P Assessment and plan (1) Displaced fracture of right femoral neck: Plan Weightbearing as tolerated right lower extremity Posterior hip precautions Pain control PT/OT medical and health services manager for discharge planning Internal medicine is primary and appreciate their medical management Dressing to be changed this morning At this point time no further orthopedic surgical intervention required. Patient stable for discharge from orthopedic standpoint. Orthopedic surgery team will sign off patient at this time and follow peripherally. Appreciate the opportunity as well as to partake in the care of this patient. If there is any questions or concerns retained patient's orthopedic care feel free to contact myself Dr. Galvan. Patient's discharge instructions are in chart as well as discharge medications as far as pain medication and DVT prophylaxis. He will see me in office in 2 weeks. Attestations Medical Necessity Statement*: Patient admitted for hospitalization secondary to right hip fracture and surgical intervention with postoperative monitoring. 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
--- NOTE | 2021-11-23 08:42 | P.DS_ITS ---
Discharge Providers Date of Admission: 11/20/21 11:38 Date of Discharge: November 23, 2021 Attending Provider at Admission: John Harp MD Attending Provider at Discharge: John Harp MD Primary Care Provider: RHETT Briceño Diagnoses at Discharge Discharge Diagnosis (1) Displaced fracture of right femoral neck: Status: Acute Reason for Visit Reason for Visit: WEAKNESS/ FALL 2 DAYS AGO Hospital Course Hospital Course Cal is a 55-year-old white male who presented with a fall and hip fracture on the right. Orthopedics was consulted. It was thought the fall was mechanical, but this was not completely clear. He was placed on telemetry and no arrhythmias were noted. He was started on aspirin, statin as he should be on this for his history of heart disease. Lisinopril was also added for hypertension. He had surgery on November 21, and did well afterwards. Hemoglobin remained stable. On November 23, he was stable to be discharged home with home physical therapy. He was instructed to take medicines and prescribed, and follow-up with his primary care provider and orthopedics as instructed. He was given an opportunity to ask questions, and agreed with the plan. Son was present during my instructions on discharge. Physical Exam Narrative: General exam no distress Neck is supple no lymphadenopathy thyromegaly Cardiovascular regular rate and rhythm without murmur Lungs clear no wheezing or crackles Abdomen is soft, positive bowel sounds Extremities no cyanosis clubbing or edema, right hip dressing site clean and dry Skin without rash Urinary Catheter Management: Grajeda: Cath Placed During This Visit: yes, but has since been removed by the nurse Reason for Continuing Indwelling Catheter: Perioperative Use in Selected Surgeries Urinary Catheter Date of Insertion: 11/21/21 Urinary Catheter Time of Insertion: 12:25 Date Urinary Catheter Removed: 11/22/21 Time Urinary Catheter Discontinued: 06:00 Discharge Data Studies Completed and Pending Completed Studies During Hospitalization Category Date Time Status CT cervical spin wo con* [id number] Stat Cat Scan 11/20/21 07:[address] head wo con* [id number] Stat Cat Scan 11/20/21 07:[address] lumbar spine wo con* [id number] Stat Cat Scan 11/20/21 07:20 Completed XR chest 1V portable [id number] Stat Exams 11/20/21 07:20 Completed XR femur RT min 2V* [id number] Stat Exams 11/20/21 09:10 Completed XR hip RT 2-3V wo/w pel* [id number] Routine Exams 11/21/21 14:17 Completed XR hip RT 2-3V wo/w pel* [id number] Stat Exams 11/20/21 07:53 Completed XR knee RT 1-2V [id number] Stat Exams 11/20/21 09:10 Completed XR pelvis 1-2V* [id number] Stat Exams 11/20/21 09:10 Completed CV carotid duplex BI* [id number] Routine Ultrasound 11/20/21 11:38 Completed CV. echo complete* [id number] Routine Ultrasound 11/20/21 11:38 Completed Radiology Impressions Cervical Spine CT 11/20/21 07:20 IMPRESSION: 1. No acute cervical spine fracture. 2. Cervical scoliosis. 3. Mild spondylitic changes but no high-grade stenosis. Chest X-Ray 11/20/21 07:20 IMPRESSION: Unremarkable chest radiograph. Head CT 11/20/21 07:20 IMPRESSION: 1. No acute intracranial hemorrhage or edema. 2. Moderate cerebral atrophy and small vessel ischemic disease. 3. Multiple lacunar infarcts in the basal ganglia, bilaterally with a LEFT pa lacunar infarct. Lumbar Spine CT 11/20/21 07:20 IMPRESSION: 1. No acute fracture. 2. Mild stenosis from L3-4 to L5-S1 as described above. No high-grade stenosis or large disc protrusions. Femur X-Ray 11/20/21 09:10 IMPRESSION: 1. Subcapital fracture of the right femur. Remaining aspects of the right femur are intact. Knee X-Ray 11/20/21 09:10 IMPRESSION: 1. Negative RIGHT knee for fracture. 2. Peripheral arterial calcifications. Pelvis X-Ray 11/20/21 09:10 IMPRESSION: 1. Mildly impacted acute fracture involving the base of the RIGHT femoral neck. 2. Otherwise mild osteoarthritis at the hip joints bilaterally. Hip/Pelvis X-Ray 11/21/21 14:17 IMPRESSION: 1. Right hip hemiprosthesis appearing be in satisfactory position Laboratory Results WBC 12.1 10^3/uL (4.0-10.0) H 11/23/21 04:00 RBC 5.67 10^6/uL (4.1-5.3) H 11/23/21 04:00 Hgb 15.7 g/dL (11.7-16.6) 11/23/21 04:00 Hct 46.0 % (42.0-52.0) 11/23/21 04:00 MCV 81.1 fl (80-94) 11/23/21 04:00 MCH 27.7 pg (28.0-34.0) L 11/23/21 04:00 MCHC 34.1 g/dL (30.0-36.0) 11/23/21 04:00 RDW 13.1 % (12.1-15.1) 11/23/21 04:00 Plt Count 257 10^3/cmm (130-400) 11/23/21 04:00 MPV 12.0 fL (7.4-10.4) H 11/23/21 04:00 Neut % (Auto) 78.1 % 11/23/21 04:00 Lymph % (Auto) 10.5 % 11/23/21 04:00 [place] % (Auto) 10.4 % 11/23/21 04:00 Eos % (Auto) 0.1 % 11/23/21 04:00 Baso % (Auto) 0.2 % 11/23/21 04:00 Neut # (Auto) 9.42 10^3/uL (1.8-7.7) H 11/23/21 04:00 Lymph # (Auto) 1.3 10^3/uL (0.8-4.8) 11/23/21 04:00 [place] # (Auto) 1.3 10^3/uL (0.2-0.9) H 11/23/21 04:00 Eos # (Auto) 0.0 10^3/uL (0.0-0.8) 11/23/21 04:00 Baso # (Auto) 0.0 10^3/uL (0.0-0.1) 11/23/21 04:00 Nucleated RBC % (auto) 0 % 11/23/21 04:00 Nucleated RBCs # 0.0 /100WBC 11/23/21 04:00 PT 13.00 SECONDS (12.1-14.9) 11/20/21 07:10 INR 0.96 (0.8-1.2) 11/20/21 07:10 APTT 23.8 SECONDS (23.9-36.7) L 11/20/21 07:10 Sodium 134 mmol/L (136-145) L 11/22/21 04:31 Potassium 3.6 mmol/L (3.5-5.1) 11/22/21 04:31 Chloride 97 mmol/L (98-107) L 11/22/21 04:31 Carbon Dioxide 23 mmol/L (22-29) 11/22/21 04:31 Anion Gap 17.6 (5-19) 11/22/21 04:31 BUN 11 mg/dL (6-20) 11/22/21 04:31 Creatinine 0.8 mg/dL (0.7-1.2) 11/22/21 04:31 GFR Calculation 100.0 mL/min (90-130) 11/22/21 04:31 Glucose 211 mg/dL (65-115) H 11/22/21 04:31 POC Glucose 248 mg/dL (70-110) H 11/23/21 05:56 Estimat Average Glucose 203 11/20/21 07:10 Hemoglobin A1c 8.7 % (4.0-6.0) H 11/20/21 07:10 Calculated Osmolality 284 mOsm/kg (285-295) L 11/22/21 04:31 Calcium 9.0 mg/dL (8.5-10.5) 11/22/21 04:31 Total Bilirubin 0.7 mg/dL (0.15-1.2) 11/20/21 07:10 AST 20 U/L (0-40) 11/20/21 07:10 ALT 20 U/L (0-41) 11/20/21 07:10 Alkaline Phosphatase 64 U/L (40-130) 11/20/21 07:10 Creatine Kinase 202 U/L (39-308) 11/20/21 07:10 Troponin T Baseline 15 ng/L (0-15) 11/20/21 07:10 Troponin T 120 Minute 15.00 ng/L (0-15) 11/20/21 09:55 Delta Troponin T 0 ABS# (0-10) 11/20/21 09:55 Troponin T Hi Sens 6Hr 14.79 ng/L (0-15) 11/20/21 13:04 Troponin T Hi Sens 6Hr Delta -0.21 ng/L (0-12) L 11/20/21 13:04 Total Protein 6.4 g/dL (6.6-8.7) L 11/20/21 07:10 Albumin 3.5 g/dL (3.5-5.2) 11/20/21 07:10 Globulin 2.9 g/dL (1.3-4.6) 11/20/21 07:10 Triglycerides 130 mg/dL (0-150) 11/21/21 04:36 Cholesterol 156 mg/dL (0-200) 11/21/21 04:36 LDL Cholesterol, Calc 103 mg/dL (50-129) 11/21/21 04:36 HDL Cholesterol 27 mg/dL (60-100) L 11/21/21 04:36 LDL/HDL Ratio 3.81 RATIO (0.00-3.22) H 11/21/21 04:36 Cholesterol/HDL Ratio 5.78 mg/dL (1.0-5.00) H 11/21/21 04:36 TSH 0.95 uIU/mL (0.27-4.20) 11/20/21 09:55 Urine Color Dark yellow (Yellow) 11/20/21 07:55 Urine Appearance Clear (CLEAR) 11/20/21 07:55 Urine pH 5 (5-7) 11/20/21 07:55 Ur Specific [place] 1.020 (1.005-1.030) 11/20/21 07:55 Urine Protein 2+ (Negative) H 11/20/21 07:55 Urine Glucose (UA) 4+ (Normal) H 11/20/21 07:55 Urine Ketones 2+ (Negative) H 11/20/21 07:55 Urine Blood Neg (Negative) 11/20/21 07:55 Urine Nitrate Negative (Negative) 11/20/21 07:55 Urine Bilirubin Neg (Negative) 11/20/21 07:55 Urine Urobilinogen Norm mg/dL (Negative) 11/20/21 07:55 Ur Leukocyte Esterase Negative (Negative) 11/20/21 07:55 Urine RBC Rare /hpf (0-2) 11/20/21 07:55 Urine WBC 0-4 /hpf (0-5) H 11/20/21 07:55 Ur Squamous Epith Cells Rare /hpf (0-5) 11/20/21 07:55 Amorphous Sediment Not Reportable 11/20/21 07:55 Urine Bacteria Trace /hpf (NONE) 11/20/21 07:55 Hyaline Casts Rare /lpf 11/20/21 07:55 Urine Mucus 1+ /hpf 11/20/21 07:55 Blood Type O Positive 11/20/21 09:55 Rho(D) Type Positive 11/20/21 09:55 Antibody Screen Negative 11/20/21 09:55 Vitals Last Vital Signs Temp 97.6 F 11/23/21 08:00 Pulse 81 11/23/21 08:00 Resp 16 11/23/21 08:00 BP 158/79 11/23/21 08:00 Pulse Ox 96 11/23/21 08:00 O2 Del Method 11/22/21 15:32 O2 Flow Rate 8 11/21/21 14:05 Discharge Plan Discharge Patient Disposition: Home Health Service Condition: Stable Prescriptions: New oxycodone 5 mg Tablet 5 mg PO Q6H PRN (Reason: Moderate Pain) 7 Days Qty: 28 0RF enoxaparin 40 mg/0.4 mL Syringe 40 mg SUBCUT Q24H 30 Days Qty: 12 0RF aspirin 81 mg Tablet,Delayed Release (Dr/Ec) 81 mg PO DAILY Qty: 30 0RF docusate sodium 100 mg Capsule 100 mg PO BID Qty: 60 0RF atorvastatin 40 mg Tablet 40 mg PO BEDTIME Qty: 30 0RF lisinopril 10 mg Tablet 10 mg PO DAILY Qty: 30 0RF calcium carbonate-vitamin D3 600 mg-10 mcg (400 unit) Tablet 1 ea PO BID 30 Days Qty: 60 0RF ondansetron 4 mg tablet,disintegrating 4 mg PO DAILY PRN (Reason: nausea and vomiting) 5 Days Qty: 10 0RF Farxiga 5 mg tablet 5 mg PO DAILY Qty: 30 0RF Continued metformin 1,000 mg tablet 1,000 mg PO BID Discharge Orders: Discharge Order (Routine); Ordered 11/23/21 Ordered By: John Harp Other Ambulatory Orders: DME: Chris (Order) Location: None Selected Ordered By: John Harp Referrals: [facility] [Outside] lA Galvan DO [Physician] - Ruth Stanley FNP [Primary Care Provider] - 4-7 days Discharge Diet: Cardiac and Diabetic Discharge Activity: Limit activity as instructed Patient Instructions: Opioid Safety, Pain Management Activity Restrictions/Additional Instructions: Orthopedic discharge instructions: Patient may be weightbearing as tolerated Posterior hip precautions Take DVT prophylaxis (Lovenox) to prevent blood clots Take pain medication as prescribed Take antinausea medication as needed Supplement with Citracal vitamin D Keep incision clean dry and intact, may shower but no baths or soaks Follow-up with Dr. Galvan in office in 2 weeks Contact the office for any questions or concerns. Take all medicine as prescribed Discharge follow-up with orthopedics per their instructions Return for any concerns Patient's Health Concerns: Hip fracture Assessment: Repaired in the hospital, doing well Plan of Treatment: Home physical therapy Discharge Attestations Time Spent in Discharge Care*: greater than 30 min Quality Metrics Clinical Quality Measures [ No reported AMI, CVA or VTE this stay] Coding Level of Care Code Acute g [facility] note Diagnoses Displaced fracture of right femoral neck S72.001A
[2021-11-23] MEDS: insulin lispro 100 unit/1 mL SUBCUT ×2 (08:52→13:14)
[2021-11-23] MEDS: iron polysaccharide complex 150 mg Capsule PO (09:22)
[2021-11-23] MEDS: cholecalciferol (vitamin D3) 1,000 unit Tablet 1000 UNIT PO (09:22)
[2021-11-23] MEDS: sennosides-docusate Tablet 2 TAB PO (09:22)
[2021-11-23] MEDS: aspirin 81 mg EC Tablet PO (09:23)
[2021-11-23] MEDS: calcium carb-vit d 600mg/400unit 1 Tablet 1 EACH PO (09:23)
[2021-11-23] MEDS: docusate sodium 100 mg Capsule PO (09:23)
[2021-11-23] MEDS: lisinopril 10 mg Tablet PO (09:23)
[2021-11-23] MEDS: multivitamin therapeutic Tablet 1 TAB PO (09:23)
[2021-11-23 09:26] LABS: Glucose Point of Care 346 mg/dL (70-110)
--- NOTE | 2021-11-23 10:55 | PC.SOCIAL ---
IMM update IMM updated with patient and son at bedside. Verbalized an understanding. Copy Pg 2 provided. Initialled, dated, timed, and placed in chart.
[2021-11-23 11:26] VITALS: BP 134/80; PULSE 109; RESP 16; TEMP 36.4; O2SAT 97
[2021-11-23 11:29] LABS: Glucose Point of Care 408 mg/dL (70-110)
[2021-11-23] MEDS: enoxaparin 40 mg/0.4 mL Syringe SUBCUT (13:13)
[2021-11-23 13:39] VITALS: BP 134/80; PULSE 109; RESP 16; TEMP 36.4; O2SAT 97
== END 2021-11-23 13:41 | disposition home health service (06) | DRG 522 ==
LOC: ER 10:04 → MEDSURG 12:17
PROVIDERS: Family Medicine; Student in an Organized Health Care Education/Training Program; Admitting Provider Internal Medicine; Emergency Provider Family Medicine; PCP Nurse Practitioner Family; Visit Provider Internal Medicine
PROC: 0SRR0JA Replacement of Right Hip Joint, Femoral Surface with Synthetic Substitute, Uncemented, Open Approach (ICD-10-PCS; CPT 27125; principal; 2021-11-21 12:00)
DX: S72.011A Unspecified intracapsular fracture of right femur, initial encounter for closed fracture (principal); W01.0XXA Fall on same level from slipping, tripping and stumbling without subsequent striking against object, initial encounter; E11.9 Type 2 diabetes mellitus without complications; I25.10 Atherosclerotic heart disease of native coronary artery without angina pectoris; I10 Essential (primary) hypertension; E78.5 Hyperlipidemia, unspecified; G47.33 Obstructive sleep apnea (adult) (pediatric); Z86.73 Personal history of transient ischemic attack (TIA), and cerebral infarction without residual deficits; Z99.89 Dependence on other enabling machines and devices; Z91.14 Patient's other noncompliance with medication regimen; Z91.19 Patient's noncompliance with other medical treatment and regimen; Z79.84 Long term (current) use of oral hypoglycemic drugs
CPT/HCPCS: 36415; 36416; 51702; 70450; 71045; 72125; 72131; 72170; 73502; 73552; 73560; 80048; 80053; 80061; 81001; 82550; 82962; 83036; 84443; 84484; 85025; 85610; 85730; 86850; 86900; 93005; 93306; 93880; 96372; 97116; 97161; 97166; 97530; 97535; 99285; C1776; J1580; J1650; J1815; J2250; J2704; J3010; J7030

== ENCOUNTER → 2021-12-06 08:33 | Outpatient (BNVA) | payer MEDICARE, SELFPAY | PROVIDERS: PCP Nurse Practitioner Family; Visit Provider Student in an Organized Health Care Education/Training Program | DX: Z96.641 Presence of right artificial hip joint (principal); X58.XXXA Exposure to other specified factors, initial encounter; S72.001A Fracture of unspecified part of neck of right femur, initial encounter for closed fracture | CPT/HCPCS: 73502; 99024 ==

== ENCOUNTER 2023-03-01 21:55 | Observation (INO) | payer MEDICARE, SELFPAY ==
[2023-03-01 21:57] VITALS: BP 139/69; PULSE 68; RESP 12; O2SAT 98
--- NOTE | 2023-03-01 22:04 | XRR_ITS ---
PROCEDURE INFORMATION: Exam: XR Chest Exam date and time: 03/01/2023 10:23 PM Age: 57 years old Clinical indication: Other: Poss CVA; Patient HX: EMS arrival for possible CVA. ; Additional info: AMS TECHNIQUE: Imaging protocol: Radiologic exam of the chest. Views: 1 view. COMPARISON: CR XR chest 1V portable [id number] 11/20/2021 8:18 AM FINDINGS: Lungs: Unremarkable. No consolidation. Pleural spaces: Unremarkable. No pleural effusion. No pneumothorax. Heart/Mediastinum: Unremarkable. No cardiomegaly. Bones/joints: Unremarkable. XR/XR chest 1V portable [id number] IMPRESSION: No acute findings.
--- NOTE | 2023-03-01 22:04 | CTR_ITS ---
PROCEDURE INFORMATION: Exam: CT Head Without Contrast Exam date and time: 03/01/2023 9:57 PM Age: 57 years old Clinical indication: Stroke-like symptoms; Speech disturbance; Additional info: EMS arrival for poss CVA. Patient aphasic and hypertensive. History of prior CVA. TECHNIQUE: Imaging protocol: Computed tomography of the head without contrast. Radiation optimization: All CT scans at this facility use at least one of these dose optimization techniques: automated exposure control; mA and/or kV adjustment per patient size (includes targeted exams where dose is matched to clinical indication); or iterative reconstruction. Other technique: STROKE PROTOCOL was implemented. COMPARISON: CT head wo con* [id number] 11/20/2021 8:03 AM RADIATION DOSE METRICS: Total DLP (mGy-cm): 2454.34 FINDINGS: Brain: There is volume loss. There is white matter lucency consistent with chronic microvascular disease. There are multiple old lacunar infarcts seen within white matter, basal ganglia, thalamus and left pa. There is a large old left posterior temporal-occipital cortical infarct. Although this large infarct is old, it has occurred since the previous CT. No acute infarct is identified. There is no hemorrhage or extra-axial collection. No mass. Cerebral ventricles: Ex vacuo dilatation of the left occipital horn. Paranasal sinuses: Visualized sinuses are unremarkable. No fluid levels. Mastoid air cells: Visualized mastoid air cells are well aerated. Bones/joints: Unremarkable. No acute fracture. Soft tissues: Unremarkable. CT/CT head thrombolytic [id number] IMPRESSION: 1. Extensive chronic microvascular disease with numerous old lacunar infarcts. 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 2. No acute intracranial lesion or injury ASSESSMENT: ASPECTS (Fabienne Stroke Program Early CT Score) is 10.
--- NOTE | 2023-03-01 22:09 | ECG_ITS ---
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 Measurements Intervals [place] Rate: 60 P: 0 TN: 0 QRS: -69 QRSD: 105 T: 56 QT: 413 QTc: 415 Interpretive Statements MOBITZ TYPE 2 AV block ANTERIOR MYOCARDIAL INFARCTION , OF INDETERMINATE AGE [40+ ms Q WAVE AND/OR ST/T ABNORMALITY IN V3/V4] INFERIOR MYOCARDIAL INFARCTION , OF INDETERMINATE AGE [40+ ms Q WAVE AND/OR ST/T ABNORMALITY IN II/aVF] Compared to ECG 11/20/2021 14:44:07 Myocardial infarct finding still present Electronically Signed On 03-02-2023 16:25:12 INTERNATIONAL LOGISTICS ANALYST by Marco Antonio Hawkins M.D. [email or web address]
[2023-03-01 22:11] LABS: Basophils # 0.1 10^3/uL (0.0-0.1); Basophils % 0.6 %; Eosinophils # 0.1 10^3/uL (0.0-0.8); Eosinophils % 0.6 %; Hematocrit 49.8 % (37-53); Lymphocytes % 14.4 %; Mean Corpuscular HGB Conc 33.3 g/dL (30-55); Mean Corpuscular Hemoglobin 28.1 pg (27-33); Mean Corpuscular Volume 84.3 fl (82-101); Mean Platelet Volume 11.1 fL (7.4-10.4); Monocytes # 0.8 10^3/uL (0.2-0.9); Monocytes % 5.7 %; Neutrophils # 10.86 10^3/uL (1.8-7.7); Neutrophils % 78.1 %; Nucleated Red Blood Cells % 0 %; Platelet Count 273 10^3/cmm (157-399); Red Blood Count 5.91 10^6/uL (3.85-5.65); Red Cell Distribution Width 13.1 % (12.1-15.1); White Blood Count 13.92 10^3/uL (3.29-11.43)
[2023-03-01 22:23] LABS: INR 0.98 (0.8-1.2); Partial Thromboplastin Time 23.4 SECONDS (23.9-36.7)
[2023-03-01 22:25] VITALS: BP 139/69; PULSE 64; O2SAT 98
[2023-03-01] MEDS: sodium chloride 0.9% 1,000 ML 999 ML IV (22:28)
[2023-03-01 22:31] LABS: Alanine Aminotransferase 25 U/L (0-41); Albumin Level 4.6 g/dL (3.5-5.2); Alkaline Phosphatase 95 U/L (40-130); Anion Gap 14.3 (5-19); Aspartate Amino Transferase 14 U/L (0-40); Blood Urea Nitrogen 15 mg/dL (6-20); Calcium 10.1 mg/dL (8.5-10.5); Carbon Dioxide 30 mmol/L (22-29); Chloride 99 mmol/L (98-107); Globulin 3.1 g/dL (1.3-4.6); Glomerular Filtration Rate 56.7 mL/min (90-130); Glucose 291 mg/dL (65-115); Osmolality Calculated 300 mOsm/kg (285-295); Potassium 4.3 mmol/L (3.5-5.1); Sodium 139 mmol/L (136-145); Total Bilirubin 0.7 mg/dL (0.15-1.2); Total Protein 7.7 g/dL (6.6-8.7)
[2023-03-01 22:34] LABS: Alcohol Level < 10 mg/dL (0-10)
[2023-03-01 22:39] LABS: ABG PCO2 41.2 mmHg (35-45); ABG PH Result 7.41 (7.35-7.45); Arterial Blood Gas Hematocrit 46.6 % (42-52); Blood Gas Allen Test Pos; Blood Gas Sample Site Radial, right; Blood Gas Sample Type Arterial; HCO3 ABG 25.9 mmol/L (22-26); PO2 ABG 70.2 mmHg (80.0-100.0); PO2 FiO2 Ratio Arterial Blood 0
[2023-03-01 22:44] VITALS: BP 139/69; PULSE 104; RESP 17; O2SAT 96
[2023-03-01 22:47] LABS: Add Urine Microscopic? NO; Charge for UA Resulting for Rev
[2023-03-01 22:51] LABS: Bilirubin Urine Neg (Negative); Blood Urine Neg (Negative); Glucose Urine UA 4+ (Normal); Ketones Urine Negative (Negative); Leukocyte Esterase Urine Negative (Negative); Nitrate Urine Negative (Negative); Protein Urine Neg (Negative); Specific Gravity, Urine 1.005 (1.005-1.030); Urine Appearance Clear (CLEAR); Urine Color Yellow (Yellow); Urobilinogen Urine 1 mg/dL (Negative); pH Urine 6.5 (5-7)
[2023-03-01 22:55] LABS: Lactic Sepsis W/Reflex 1.3 mmol/L (0.5-2.2)
--- NOTE | 2023-03-01 22:56 | ED_ITS ---
HPI - Weakness 2 General: Chief complaint: Weakness Stated complaint: lethargic, non-verbal Time Seen by Provider: 03/01/23 21:57 History of Present Illness: 57-year-old male patient with a history of a large cerebellar stroke. At baseline, he walks mainly with a walker, is able to manage short sentences for communication, and is somewhat functional and that he is able to feed himself etc. He presents with decreased mental status. His last known well time is 11 AM. Some history is taken from the patient's daughter. According to the son who had been with him part of the day, he had not been verbal at all most of the day. He had not gotten up. He was much less interactive and responsive. No localizing symptoms such as vision changes, one-sided weakness, etc. He had not eaten all day until around 7 PM at which point he ate part of a cheeseburger. The patient is able to answer yes and no questions. He is awake. He is somewhat lethargic. He denies any pain including headache. He denies vision changes. He reports some nausea. No history of fever, vomiting, or diarrhea. Associated symptoms: Reports confusion and nausea; Denies chest pain, chills, fever(s), headache(s) or vomiting Review of Systems 2 Const: Denies: fever(s), chills or body aches Eyes: Denies: change in vision or blind spots ENMT: Denies: throat pain Card: Denies: chest pain or palpitations Resp: Denies: dyspnea, productive cough, non-productive cough or wheezing GI: Reports: nausea; Denies: abdominal pain, vomiting, diarrhea or hematochezia Skin/Breast: Denies: rash Neuro: Reports: difficulty walking, confusion, behavioral changes and difficulty communicating thoughts; Denies: headache(s), weakness in extremities, dizziness or seizure-like activity [facility] ED 2 PFSH: Medical History Displaced fracture of right femoral neck Fall Closed right hip fracture HTN (hypertension) CAD (coronary artery disease) Carotid stenosis Diabetes Hyperlipidemia Sleep apnea Stroke Surgical History S/P hip hemiarthroplasty History of appendectomy History of tonsillectomy Family History Other Diabetes Hyperlipidemia Hypertension Social History Smoking and tobacco/nicotine status: never used tobacco/nicotine Alcohol intake: never Substance/Drug Use: current Physical Exam 2 Const: GENERAL APPEARANCE: cooperative, lethargic and frail appearing O RIENTATION/CONSCIOUSNESS: Yes awake, Yes oriented to person and Yes lethargic HENMT: COMMON NORMALS: normocephalic, atraumatic and Normal external nose present HEAD & SCALP: normocephalic and atraumatic FACE & SINUS: normal facial exam and face symmetric NOSE: Normal external nose present Eye: COMMON NORMALS: Equal, round and reactive pupils present and EOMs intact bilaterally SCLERA: sclerae normal PUPIL: Yes Equal, round and reactive pupils present OTHER: What appears to be mild rotatory nystagmus, intermittent Neck/C-Spine: GENERAL: Yes trachea midline and No anterior neck swelling Chest: CHEST: Yes Symmetrical chest wall rise Resp: COMMON NORMALS: normal respiratory effort, No use of accessory muscles and clear to auscultation bilaterally AUSCULTATION: clear to auscultation bilaterally Cardio: COMMON NORMALS: regular rate and regular rhythm RATE: regular rate RHYTHM: regular rhythm GI: COMMON NORMALS: Normal to inspection, nondistended, normoactive bowel sounds present Extremity: NARRATIVE EXTREMITY EXAM: Extremities are cool. There is no edema. No significant discoloration. Neuro: DARLEEN COMA SCALE: document GCS findings Darleen coma scale eye opening: Spontaneous [place] coma scale verbal response: Confused Darleen coma scale motor response: Localising Darleen coma scale total score: 13 S ENSORIUM/ORIENTATION: Yes oriented to person and Yes lethargic OTHER: Patient is not following commands to participate in a proper NIH scale exam. For example, he will not hold up 2 fingers, he will not repeat phrases, he will not raise arms or touch his nose. Psych: SPEECH: Yes minimal and Yes slurred Course 2 Vital Signs: Vital signs: Vital Signs Pulse Rate 74 03/01/23 23:52 Respiratory Rate 12 03/01/23 23:52 Blood Pressure 139/69 03/01/23 23:52 Pulse Oximetry 100 03/01/23 23:52 Oxygen Delivery Me thod Room Air 03/01/23 22:44 MDM - Weakness Medical Decision Making Vitals have been stable here. He does appear to be in atrial fibrillation on the monitor. Rate is controlled in the 60s. Blood pressure 139/69. Saturations have been normal on room air. Exam is remarkable for expressive aphasia, perhaps worsened, and some intermittent nystagmus. Exam is somewhat difficult due to lack of ability to participate or follow commands. Chest x-ray shows no acute findings. No new findings on head CT. White blood cell count is 14 with no significant left shift. His blood sugar is 291. His creatinine is 1.3. Other laboratory findings not terribly remarkable including blood gas. Urine drug screen is positive for marijuana. In the differential would be marijuana intoxication, new infarction, metabolic encephalopathy, infectious encephalopathy. He does not have a fever. No evidence or source of infection is noted. He will be observed. He has a history of significant noncompliance with his chronic medical problems including prior stroke, diabetes, and hypertension. He has not seen a doctor in a couple of years his daughter says. Lab Data 03/01/23 21:59 03/01/23 21:59 Radiology Impressions Chest X-Ray 03/01/23 22:04 IMPRESSION: No acute findings. Head CT 03/01/23 22:04 IMPRESSION: 1. Extensive chronic microvascular disease with numerous old lacunar infarcts. 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 2. No acute intracranial lesion or injury ASSESSMENT: ASPECTS ([place] Stroke Program Early CT Score) is 10. Laboratory Results WBC 13.92 10^3/uL (3.29-11.43) H 03/01/23 21:59 RBC 5.91 10^6/uL (3.85-5.65) H 03/01/23 21:59 Hgb 16.60 g/dL (11.27-16.99) 03/01/23 21:59 Hct 49.8 % (37-53) 03/01/23 21:59 MCV 84.3 fl (82-101) 03/01/23 21:59 MCH 28.1 pg (27-33) 03/01/23 21:59 MCHC 33.3 g/dL (30-55) 03/01/23 21:59 RDW 13.1 % (12.1-15.1) 03/01/23 21:59 Plt Count 273 10^3/cmm (157-399) 03/01/23 21:59 MPV 11.1 fL (7.4-10.4) H 03/01/23 21:59 Neut % (Auto) 78.1 % 03/01/23 21:59 Lymph % (Auto) 14.4 % 03/01/23 21:59 [place] % (Auto) 5.7 % 03/01/23 21:59 Eos % (Auto) 0.6 % 03/01/23 21:59 Baso % (Auto) 0.6 % 03/01/23 21:59 Neut # (Auto) 10.86 10^3/uL (1.8-7.7) H 03/01/23 21:59 Lymph # (Auto) 2.0 10^3/uL (0.8-4.8) 03/01/23 21:59 [place] # (Auto) 0.8 10^3/uL (0.2-0.9) 03/01/23 21:59 Eos # (Auto) 0.1 10^3/uL (0.0-0.8) 03/01/23 21:59 Baso # (Auto) 0.1 10^3/uL (0.0-0.1) 03/01/23 21:59 Nucleated RBC % (auto) 0 % 03/01/23 21:59 Nucleated RBCs # 0.0 /100WBC 03/01/23 21:59 PT 13.30 SECONDS (12.1-14.9) 03/01/23 21:59 INR 0.98 (0.8-1.2) 03/01/23 21:59 APTT 23.4 SECONDS (23.9-36.7) L 03/01/23 21:59 Specimen Type Arterial 03/01/23 22:30 Sample Site Radial, right 03/01/23 22:30 ABG pH 7.41 (7.35-7.45) 03/01/23 22:30 ABG pCO2 41.2 mmHg (35-45) 03/01/23 22:30 ABG pO2 70.2 mmHg (80.0-100.0) L 03/01/23 22:30 ABG PO2/FiO2 Ratio 0 03/01/23 22:30 ABG HCO3 25.9 mmol/L (22-26) 03/01/23 22:30 ABG Base Excess 1.0 mmol/L (-2.0-2.0) 03/01/23 22:30 Judd Test Pos 03/01/23 22:30 Hematocrit 46.6 % (42-52) 03/01/23 22:30 O2 Delivery Device None 03/01/23 22:30 FiO2 21.0 % 03/01/23 22:30 Release Coordinator ID [email or web address] 03/01/23 22:30 Sodium 139 mmol/L (136-145) 03/01/23 21:59 Potassium 4.3 mmol/L (3.5-5.1) 03/01/23 21:59 Chloride 99 mmol/L (98-107) 03/01/23 21:59 Carbon Dioxide 30 mmol/L (22-29) H 03/01/23 21:59 Anion Gap 14.3 (5-19) 03/01/23 21:59 BUN 15 mg/dL (6-20) 03/01/23 21:59 Creatinine 1.3 mg/dL (0.7-1.2) H 03/01/23 21:59 GFR Calculation 56.7 mL/min (90-130) L 03/01/23 21:59 Glucose 291 mg/dL (65-115) H 03/01/23 21:59 POC Glucose 267 mg/dL (70-110) H 03/01/23 22:01 Calculated Osmolality 300 mOsm/kg (285-295) H 03/01/23 21:59 Lactic Acid 1.3 mmol/L (0.5-2.2) 03/01/23 22:25 Calcium 10.1 mg/dL (8.5-10.5) 03/01/23 21:59 Total Bilirubin 0.7 mg/dL (0.15-1.2) 03/01/23 21:59 AST 14 U/L (0-40) 03/01/23 21:59 ALT 25 U/L (0-41) 03/01/23 21:59 Alkaline Phosphatase 95 U/L (40-130) 03/01/23 21:59 Total Protein 7.7 g/dL (6.6-8.7) 03/01/23 21:59 Albumin 4.6 g/dL (3.5-5.2) 03/01/23 21:59 Globulin 3.1 g/dL (1.3-4.6) 03/01/23 21:59 Urine Color Yellow (Yellow) 03/01/23 22:42 Urine Appearance Clear (CLEAR) 03/01/23 22:42 Urine pH 6.5 (5-7) 03/01/23 22:42 Ur Specific [place] 1.005 (1.005-1.030) 03/01/23 22:42 Urine Protein Neg (Negative) 03/01/23 22:42 Urine Glucose (UA) 4+ (Normal) H 03/01/23 22:42 Urine Ketones Negative (Negative) 03/01/23 22:42 Urine Blood Neg (Negative) 03/01/23 22:42 Urine Nitrate Negative (Negative) 03/01/23 22:42 Urine Bilirubin Neg (Negative) 03/01/23 22:42 Urine Urobilinogen 1 mg/dL (Negative) H 03/01/23 22:42 Ur Leukocyte Esterase Negative (Negative) 03/01/23 22:42 Urine Opiates Screen Negative ng/mL (Negative) 03/01/23 22:42 Ur Barbiturates Screen Negative ng/mL (Negative) 03/01/23 22:42 Ur Phencyclidine Scrn Negative ng/mL (Negative) 03/01/23 22:42 Ur Amphetamines Screen Negative ng/mL (Negative) 03/01/23 22:42 U Benzodiazepines Scrn Negative ng/mL (Negative) 03/01/23 22:42 Urine Cocaine Screen Negative ng/mL (Negative) 03/01/23 22:42 U Marijuana (THC) Screen Positive ng/mL (Negative) H 03/01/23 22:42 Ethyl Alcohol < 10 mg/dL (0-10) 03/01/23 21:59 All radiology interpretation(s) finalized by discharge Discharge Plan Discharge Patient Disposition: Placed in Observation Admit Provider: Luis Fernando Mei Clinical Impression: Acute alteration in mental status, History of cerebrovascular accident Coding Level of Care Code ED Income Tax Return Preparer for Naman Orlando
[2023-03-01 22:58] LABS: Amphetamines Screen Urine Negative (Negative); Barbiturates Screen Urine Negative (Negative); Benzodiazepines Screen Urine Negative (Negative); Cocaine Screen Urine Negative (Negative); Opiate Screen Urine Negative (Negative); PCP Screen Urine Negative (Negative); THC Screen Urine Positive (Negative)
[2023-03-01 23:41] LABS: Glucose Point of Care 267 mg/dL (70-110)
[2023-03-01 23:52] VITALS: BP 139/69; PULSE 74; RESP 12; O2SAT 100
[2023-03-02] VITALS (16 sets, daily range): BP systolic 119–197; BP diastolic 69–96; PULSE 39–118; RESP 14–18; TEMP 36.3–37.1; O2SAT 71–100
--- NOTE | 2023-03-02 00:28 | P.HP_ITS ---
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 Son is at the bedside who is providing history, patient was very drowsy and lethargic on arrival in the ER, sinus stating that since 11 AM he has not been doing well he has not gotten out of bed, barely ate anything today, he was not talking at all over the family, his output has decreased as well, they have not noticed any fever, vomiting or recent diarrhea. He takes marijuana cookies. Son brought him in for above-mentioned complaints in the ER and it was not calculable because he was not cooperative, at the time of my evaluation family stating that he is back to his baseline, patient is answering in simple sentences, able to follow commands, very slow and lethargic, CT head showing old CVA related changes, he is hemodynamically stable currently on room air I requested respiratory panel, son was contemplating taking him home however I convinced him to stay overnight and get PT OT and ST in the morning that would decide his disposition plan Currently he is living with his son, as per the son since hip surgery his functional status has declined significantly He is full code At baseline he eats low-sodium regular consistency diet Review of Systems 2 General: Reports: ROS unobtainable due to medical condition Medications/Allergies Home Medications Medication Instructions Recorded Confirmed Last Taken Type metformin 1,000 mg tablet 1,000 mg PO BID 05/07/19 12/06/21 11/19/21 History aspirin 81 mg tablet,delayed 81 mg PO DAILY #30 tabs 11/23/21 12/06/21 Unknown Rx release atorvastatin 40 mg tablet 40 mg PO BEDTIME #30 tabs 11/23/21 12/06/21 Unknown Rx dapagliflozin propanediol 5 mg 5 mg PO DAILY #30 tabs 11/23/21 12/06/21 Unknown Rx tablet (Farxiga) docusate sodium 100 mg capsule 100 mg PO BID #60 caps 11/23/21 12/06/21 Unknown Rx lisinopril 10 mg tablet 10 mg PO DAILY #30 tabs 11/23/21 12/06/21 Unknown Rx Allergies Allergy/AdvReac Type Severity Reaction Status Date / Time tramadol AdvReac ADR-Headach Verified 12/06/21 08:26 e PFSH Acute 2 PFSH: Medical History Displaced fracture of right femoral neck Fall Closed right hip fracture HTN (hypertension) CAD (coronary artery disease) Carotid stenosis Diabetes Hyperlipidemia Sleep apnea Stroke Surgical History S/P hip hemiarthroplasty History of appendectomy History of tonsillectomy Family History Other Diabetes Hyperlipidemia Hypertension Social History Smoking and tobacco/nicotine status: never used tobacco/nicotine Alcohol intake: never Substance/Drug Use: current Vitals/I&O/Wt Last Vital Signs Pulse 74 03/01/23 23:52 Resp 12 03/01/23 23:52 BP 139/69 03/01/23 23:52 Pulse Ox 100 03/01/23 23:52 O2 Del Method Room Air 03/01/23 22:44 Physical Exam 2 Narrative: Patient is awake and alert however fatigued Slow speech Answering simple questions Answer mostly yes and no When asked him if he is hungry he said somewhat Family at the bedside Dry skin Lower extremities are cold however I do not see any sign of ischemic ulcers S1, S2 Currently on room air Hemodynamic stable Abdomen soft Data 03/01/23 21:59 03/01/23 21:59 A&P Assessment and plan (1) HTN (hypertension): Qualifiers: Hypertension type: essential hypertension Qualified Code(s): I10 - Essential (primary) hypertension (2) CAD (coronary artery disease): (3) Carotid stenosis: (4) Diabetes: (5) S/P hip hemiarthroplasty: (6) Stroke: (7) History of cerebrovascular accident: (8) Acute alteration in mental status: (9) Sleep apnea: (10) Marijuana abuse: Plan Altered mental status Marijuana positive Old history of severe CHIEF COUNSEL stroke At baseline speech is slow patient answers in simple sentences Uses a cane for ambulation I will request PT OT and ST Family agreeable for rehab placement if needed Will request A1c level, B12 Clinically patient looks very dehydrated Start IV fluids Patient is full code I will keep him. Diet As per the family he is back to his baseline, sinus stating that it could be marijuana which exacerbated his symptoms today Daughter lives nearby as well History taken from the son and the daughter at the bedside, patient able to answer simple questions Last known well time was around 11 AM Not a tPA candidate Diabetic we will use sliding scale at lower intensity because of poor p.o. intake Continue aspirin and atorvastatin GRETEL: Anticipate improvement with IV fluid hydration DVT prophylaxis heparin Self interpretation of EKG: Sinus arrhythmia I do not agree with computer read of A-fib I clearly see P waves however we will monitor overnight to see if his rhythm changes If his rhythm changes he will need anticoagulating agent Attestations 2 Medical Necessity Statement*: Observation overnight for altered mental status with history of previous stroke anticipating discharge within 48 hours Diagnoses Essential hypertension I10 Hypertension type: essential hypertension Coronary artery disease involving pokagon coronary artery of pokagon heart without angina pectoris I25.10 Stenosis of left carotid artery I65.29 Diabetes E11.9 S/P hip hemiarthroplasty Z96.649 Stroke I63.9 History of cerebrovascular accident Z86.73 Acute alteration in mental status R41.82 Obstructive sleep apnea syndrome G47.30 Marijuana abuse F12.10
[2023-03-02] MEDS: sodium chloride 0.9% 1,000 ML 75 ML IV ×2 (01:41→17:54)
--- NOTE | 2023-03-02 02:17 | PC.NURSE ---
Dr Mei notified of patient's anxious behavior--attempts to get out of bed, calling out for his grandmother--and was given verbal order for Zyprexa 5mg IM once.
[2023-03-02] MEDS: OLANZapine 10 mg VIAL 5 MG IM (02:23)
[2023-03-02 04:08] LABS: Basophils # 0.1 10^3/uL (0.0-0.1); Basophils % 0.5 %; Eosinophils % 0.2 %; Hematocrit 47.8 % (37-53); Lymphocytes # 2.5 10^3/uL (0.8-4.8); Lymphocytes % 21.7 %; Mean Corpuscular HGB Conc 33.5 g/dL (30-55); Mean Corpuscular Hemoglobin 28.3 pg (27-33); Mean Corpuscular Volume 84.6 fl (82-101); Mean Platelet Volume 10.8 fL (7.4-10.4); Monocytes # 0.8 10^3/uL (0.2-0.9); Monocytes % 6.6 %; Neutrophils # 8.15 10^3/uL (1.8-7.7); Neutrophils % 70.6 %; Nucleated Red Blood Cells % 0 %; Platelet Count 254 10^3/cmm (157-399); Red Blood Count 5.65 10^6/uL (3.85-5.65); Red Cell Distribution Width 13.2 % (12.1-15.1); White Blood Count 11.54 10^3/uL (3.29-11.43)
[2023-03-02 04:09] LABS: Adenovirus Not Detected (NOT DETECT); Chlamydia Pneumoniae Not Detected (NOT DETECT); Coronavirus 229E,HKU1,NL63,OC4 Not Detected (NOT DETECT); Human Metapneumovirus Not Detected (NOT DETECT); Human Rhinovirus/Enterovirus Not Detected (NOT DETECT); Influenza A Not Detected (NOT DETECT); Influenza A H1 Not Detected (NOT DETECT); Influenza A H1-2009 Not Detected (NOT DETECT); Influenza A H3 Not Detected (NOT DETECT); Influenza B Not Detected (NOT DETECT); Mycoplasma Pneumoniae Not Detected (NOT DETECT); Parainfluenza Virus Type 1 Not Detected (NOT DETECT); Parainfluenza Virus Type 2 Not Detected (NOT DETECT); Parainfluenza Virus Type 3 Not Detected (NOT DETECT); Parainfluenza Virus Type 4 Not Detected (NOT DETECT); Respiratory Syncytial Virus A Not Detected (NOT DETECT); Respiratory Syncytial Virus B Not Detected (NOT DETECT); SARS-COV-2 Not Detected (NOT DETECT)
[2023-03-02 04:27] LABS: Anion Gap 14.2 (5-19); Blood Urea Nitrogen 16 mg/dL (6-20); Calcium 9.7 mg/dL (8.5-10.5); Carbon Dioxide 28 mmol/L (22-29); Chloride 102 mmol/L (98-107); Glomerular Filtration Rate 62.2 mL/min (90-130); Glucose 340 mg/dL (65-115); Osmolality Calculated 305 mOsm/kg (285-295); Potassium 4.2 mmol/L (3.5-5.1); Sodium 140 mmol/L (136-145)
[2023-03-02 04:29] LABS: Estmated Average Glucose 214; Hemoglobin A1C 9.1 % (4.0-6.0)
[2023-03-02 04:46] LABS: Thyroid Stimulating Hormone 1.13 uIU/mL (0.27-4.20); Vitamin B12 534 pg/mL (232-1245)
--- NOTE | 2023-03-02 05:44 | PC.NURSE ---
Dr Mei notified of patient's last documented BP. Nurse instructed to give scheduled Lisinopril now.
[2023-03-02] MEDS: lisinopril 10 mg Tablet PO (05:53)
--- NOTE | 2023-03-02 06:03 | PC.NURSE ---
1950ml clear yellow urine emptied from Grajeda bag.
--- NOTE | 2023-03-02 06:24 | PC.NURSE ---
Report called to ZACARIAS Andrews on [place]. All questions and concerns addressed at time of report. Patient to go up to the floor after shift change.
--- NOTE | 2023-03-02 07:31 | PC.PHAR ---
Addendum entered by Roxy Abrams 03/04/23 07:37: PT UNABLE TO VERIFY MEDICATIONS- CALLED PTS SON JOSE ARMANDO AND LEFT A MESSAGE AT 7:35 AM ASKING HIM TO RETURN MY CALL TO VERIFY HOME MEDS Addendum entered by Carrol Lunsford 03/03/23 08:27: [facility] last filled 02/20/2022 Addendum entered by Carrol Lunsford 03/03/23 08:24: called pts son again left message Addendum entered by Carrol Lunsford 03/02/23 09:32: called pts son again still no answer left another message Original Note: pt unable to verify medications-called pts son jose armando [phone] and left message -no meds pull up on ext med history
[2023-03-02 08:19] LABS: Glucose Point of Care 271 mg/dL (70-110)
[2023-03-02] MEDS: insulin lispro 100 unit/1 mL SUBCUT ×3 (09:35→17:55)
[2023-03-02 10:56] LABS: Glucose Point of Care 219 mg/dL (70-110)
--- NOTE | 2023-03-02 14:30 | ECG_ITS ---
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 Measurements Intervals [place] Rate: 41 P: 82 NV: 242 QRS: -59 QRSD: 105 T: 13 QT: 462 QTc: 382 Interpretive Statements 2:1 AV block POSSIBLE ANTERIOR MYOCARDIAL INFARCTION , OF INDETERMINATE AGE [30 ms Q WAVE IN V3/V4, OR R < 0.2 mV IN V4] INFERIOR MYOCARDIAL INFARCTION , OF INDETERMINATE AGE [40+ ms Q WAVE AND/OR ST/T ABNORMALITY IN II/aVF] Compared to ECG 03/01/2023 22:09:20 Atrial fibrillation no longer present Myocardial infarct finding still present Electronically Signed On 03-02-2023 16:21:52 FARM MORTGAGE AGENT by Marco Antonio Hawkins M.D. [email or web address]
--- NOTE | 2023-03-02 15:05 | PC.NURSE ---
Tele showing pt HR 41, apical 50, radial 41. EKG ammy, notified Dr. Guzmán. N.O. hold beta blockers and CCB.
--- NOTE | 2023-03-02 15:20 | USCV_ITS ---
Cal Oneill Age: 57 Gender: M : 1965 Exam Date: 03/02/2023 18:07 Ordering Phys: Kamini Guzmán MD Technologist: Cristian Kumar [place] [facility] [place]ication: bradycardia BP: 191 / 76 HR: 66 Rhythm: Sinus Technical Quality: Adequate MEASUREMENTS (Male / Female) Normal Values 2D ECHO LVOT Diameter 2.0 cm LV Ejection Fraction MOD 2C 72.4 % LV Ejection Fraction 2C AL 73.3 % LA Diameter 3.5 cm LA Width 3.8 cm LA Height 4.7 cm RA Width 4.6 cm RA Height 4.1 cm Aorta at Sinotubular Diameter 2.4 cm M-MODE Aortic Annulus Diameter 3.0 cm LA Ao Ratio MM 1.3 MV E Point Septal Separation 0.6 cm DOPPLER AV Peak Velocity 150.0 cm/s LVOT Peak Velocity 132.0 cm/s AV Area Cont Eq vti 2.5 cm squared AV Area Cont Eq pk 2.8 cm squared MV Peak Velocity 154.0 cm/s MV Area PHT 6.7 cm squared Mitral E to A Ratio 1.1 MV E' Velocity 47.5 cm/s Mitral E to MV E' Ratio 12.8 Mitral E to LV E' Lateral Ratio 10.5 Mitral E to LV E' Septal Ratio 16.8 TR Peak Velocity 165.8 cm/s TR Peak Gradient 11.0 mmHg TR Mean Velocity 121.0 cm/s TR Mean Gradient 6.4 mmHg TR Velocity Time Integral 34.5 cm Right Atrial Pressure 8.0 mmHg Pulmonary Artery Systolic Pressu 19.0 mmHg PV Peak Velocity 119.3 cm/s RV Acceleration Time 0.1 s RV Ejection Time 0.3 s RV AcT/ET 0.5 FINDINGS Left Ventricle Left ventricle is normal in size. LV systolic function is normal with EF 55 to 60%. No regional wall motion abnormalities are seen. Right Ventricle Normal in size and Right Atrium Normal in size Left Atrium Normal in size Mitral Valve Structurally normal mitral valve. Trace mitral regurgitation. Aortic Valve Structurally normal aortic valve. No significant stenosis or regurgitation. Tricuspid Valve Mild tricuspid regurgitation. Pulmonary artery systolic pressure is normal. Pulmonic Valve Not well-visualized Pericardium Small sized pericardial effusion Aorta Normal in size IVC Not wel visualized CONCLUSIONS LV systolic function is normal with EF of 55 to 60%. Trace mitral regurgitation. Mild tricuspid regurgitation. Small sized pericardial effusion. Compared to prior echocardiogram from 2021, no significant changes are seen Marco Antonio Hawkins MD (Electronically Signed) Final Date: 03 March 2023 10:26 S
--- NOTE | 2023-03-02 15:21 | PM.MISC ---
Miscellaneous Note Note: Blood pressure elevated. Patient also bradycardic down to 39. It is sinus bradycardia with first-degree AV block. Asymptomatic at this time. Woke up this morning alert oriented. Able to answer and half sentences. Appears to be at his baseline according to H&P documented. On dysphagia level 7 diet. Worked with speech swallow evaluation today. Stop metoprolol at this time. Patient will probably need an event monitor at discharge. Continue to monitor on telemetry today. Check echocardiogram. PT OT Start amlodipine 10 mg daily No focal neurological deficits at the time.
[2023-03-02] MEDS: amlodipine 10 mg Tablet PO (15:53)
[2023-03-02 16:25] LABS: Glucose Point of Care 145 mg/dL (70-110)
[2023-03-02] MEDS: docusate sodium 100 mg Capsule PO (17:55)
[2023-03-02 21:06] LABS: Glucose Point of Care 216 mg/dL (70-110)
[2023-03-03] VITALS (10 sets, daily range): BP systolic 165–192; BP diastolic 70–90; PULSE 30–79; RESP 15–18; TEMP 36.4–36.8; O2SAT 92–100; BMI 30.4
[2023-03-03 05:51] LABS: Basophils # 0.1 10^3/uL (0.0-0.1); Basophils % 0.7 %; Eosinophils # 0.2 10^3/uL (0.0-0.8); Eosinophils % 1.9 %; Lymphocytes # 2.9 10^3/uL (0.8-4.8); Lymphocytes % 24.5 %; Mean Corpuscular HGB Conc 33.6 g/dL (30-55); Mean Corpuscular Hemoglobin 28.7 pg (27-33); Mean Corpuscular Volume 85.6 fl (82-101); Mean Platelet Volume 10.9 fL (7.4-10.4); Monocytes # 1.1 10^3/uL (0.2-0.9); Monocytes % 9.1 %; Neutrophils # 7.58 10^3/uL (1.8-7.7); Neutrophils % 63.4 %; Nucleated Red Blood Cells % 0 %; Platelet Count 234 10^3/cmm (157-399); Red Blood Count 5.26 10^6/uL (3.85-5.65); Red Cell Distribution Width 13.1 % (12.1-15.1); White Blood Count 11.96 10^3/uL (3.29-11.43)
[2023-03-03 06:14] LABS: Anion Gap 16.2 (5-19); Blood Urea Nitrogen 11 mg/dL (6-20); Carbon Dioxide 24 mmol/L (22-29); Chloride 104 mmol/L (98-107); Glomerular Filtration Rate 76.7 mL/min (90-130); Glucose 234 mg/dL (65-115); Osmolality Calculated 297 mOsm/kg (285-295); Potassium 4.2 mmol/L (3.5-5.1); Sodium 140 mmol/L (136-145)
[2023-03-03 06:15] LABS: Magnesium 1.8 mg/dL (1.7-2.3)
[2023-03-03 07:02] LABS: Glucose Point of Care 202 mg/dL (70-110)
[2023-03-03] MEDS: insulin lispro 100 unit/1 mL SUBCUT ×3 (08:48→17:29)
[2023-03-03] MEDS: atorvastatin 40 mg Tablet PO ×2 (08:48→21:46)
[2023-03-03] MEDS: aspirin 81 mg EC Tablet PO (08:48)
[2023-03-03] MEDS: lisinopril 10 mg Tablet PO (08:48)
[2023-03-03] MEDS: amlodipine 10 mg Tablet PO (08:48)
[2023-03-03] MEDS: docusate sodium 100 mg Capsule PO ×2 (08:48→17:29)
[2023-03-03 11:57] LABS: Glucose Point of Care 193 mg/dL (70-110)
[2023-03-03] MEDS: sodium chloride 0.9% 1,000 ML 75 ML IV (14:18)
--- NOTE | 2023-03-03 15:10 | P.PN_ITS ---
Subjective 2 Subjective: Seen this morning. Blood pressure elevated 170/90. Mobitz type II AV block seen on telemetry intermittently. Patient seems to be asymptomatic from that at this time. Beta-zana has been held. This morning he is able to state his name and talking from all sentences. He states he would like to go home if possible. Not interested in halfway. He says he lives with his son-in-law. His speech was somewhat broken however I was able to understand him for the most part. Vitals/I&O/Wt Last Vital Signs Temp 97.6 F 03/03/23 12:00 Pulse 79 03/03/23 12:00 Resp 15 03/03/23 12:00 BP 172/90 03/03/23 12:00 Pulse Ox 100 03/03/23 12:00 O2 Del Method Room Air 03/03/23 12:00 03/03/23 03/03/23 03/03/23 06:59 14:59 22:59 Intake Total 310 / 1310 773.75 / 773.75 Output Total 750 / 750 Balance 310 / 410 23.75 / 23.75 Weight last 48 hrs Weight 96.116 kg Weight 96.162 kg Weight 96.388 kg Physical Exam 2 Narrative: Awake and alert Able to answer simple questions No edema bilateral lower extremities Abdomen soft nontender S1, S2 Currently on room air Hemodynamic stable Abdomen soft Urinary Catheter Management: Grajeda: Cath Placed During This Visit: yes Reason for Continuing Indwelling Catheter: Other Urinary Catheter Date of Insertion: 03/02/23 Urinary Catheter Time of Insertion: 02:09 Data 03/03/23 05:14 03/03/23 05:14 A&P Assessment and plan (1) HTN (hypertension): Qualifiers: Hypertension type: essential hypertension Qualified Code(s): I10 - Essential (primary) hypertension (2) CAD (coronary artery disease): (3) Carotid stenosis: (4) Diabetes: (5) S/P hip hemiarthroplasty: (6) Stroke: (7) History of cerebrovascular accident: (8) Acute alteration in mental status: (9) Sleep apnea: (10) Marijuana abuse: Plan Altered mental status - resolved Marijuana positive Old history of severe [employer] stroke At baseline speech is slow patient answers in simple sentences Uses a cane for ambulation I will request PT OT and ST. Assessment pending today. Family agreeable for rehab placement if needed Will request A1c level, B12. Hemoglobin A1c 9.1, vitamin B12 534 Stop IV fluids today. Patient is full code Dysphagia diet as per swallow evaluation. Diabetic we will use sliding scale at lower intensity because of poor p.o. intake Continue aspirin and atorvastatin GRETEL: Anticipate improvement with IV fluid hydration. Stop IV fluids today He will need antihyperglycemic agents at discharge. Unsure if he was taking his metformin. Hypertension ? Uncontrolled on lisinopril 10 mg daily ? Amlodipine 10 was added yesterday ? Escalate lisinopril to 40 daily today. ? Continue aspirin, atorvastatin Diabetes mellitus type 2 A1c 9.1 Will need metformin 1000 twice daily at discharge along with second agent. Unsure if he was taking his medications at home. DVT prophylaxis heparin Patient will need event monitor at discharge for underlying intermittent Mobitz type II block. He is asymptomatic from that aspect at this time. Attestations 2 Medical Necessity Statement*: Observation overnight for altered mental status with history of previous stroke anticipating discharge within 48 hours Diagnoses Essential hypertension I10 Hypertension type: essential hypertension Coronary artery disease involving [place] coronary artery of [place] heart without angina pectoris I25.10 Stenosis of left carotid artery I65.29 Diabetes E11.9 S/P hip hemiarthroplasty Z96.649 Stroke I63.9 History of cerebrovascular accident Z86.73 Acute alteration in mental status R41.82 Obstructive sleep apnea syndrome G47.30 Marijuana abuse F12.10
[2023-03-03] MEDS: lisinopril 20 mg Tablet PO (15:49)
[2023-03-03 17:10] LABS: Glucose Point of Care 185 mg/dL (70-110)
[2023-03-03 20:44] LABS: Glucose Point of Care 241 mg/dL (70-110)
[2023-03-03] MEDS: haloperidol inj 5 mg/mL INJ 1 mL 1 MG IVP (23:13)
[2023-03-04] VITALS (10 sets, daily range): BP systolic 134–174; BP diastolic 71–84; PULSE 73–113; RESP 14–18; TEMP 36.4–37.2; O2SAT 92–96
[2023-03-04] MEDS: acetaminophen 500 mg Tablet PO ×2 (02:58→23:41)
[2023-03-04 07:06] LABS: Glucose Point of Care 290 mg/dL (70-110)
[2023-03-04 07:31] LABS: Basophils # 0.1 10^3/uL (0.0-0.1); Basophils % 0.7 %; Eosinophils # 0.2 10^3/uL (0.0-0.8); Eosinophils % 1.9 %; Hematocrit 46.6 % (37-53); Lymphocytes # 2.6 10^3/uL (0.8-4.8); Lymphocytes % 23.6 %; Mean Corpuscular HGB Conc 33.5 g/dL (30-55); Mean Corpuscular Hemoglobin 28.1 pg (27-33); Mean Corpuscular Volume 83.8 fl (82-101); Mean Platelet Volume 11.2 fL (7.4-10.4); Monocytes # 1.1 10^3/uL (0.2-0.9); Monocytes % 9.7 %; Neutrophils # 6.89 10^3/uL (1.8-7.7); Neutrophils % 63.5 %; Nucleated Red Blood Cells % 0 %; Platelet Count 237 10^3/cmm (157-399); Red Blood Count 5.56 10^6/uL (3.85-5.65); Red Cell Distribution Width 12.9 % (12.1-15.1); White Blood Count 10.85 10^3/uL (3.29-11.43)
[2023-03-04 07:42] LABS: Blood Urea Nitrogen 16 mg/dL (6-20); Calcium 9.7 mg/dL (8.5-10.5); Carbon Dioxide 21 mmol/L (22-29); Chloride 100 mmol/L (98-107); Glomerular Filtration Rate 86.7 mL/min (90-130); Glucose 283 mg/dL (65-115); Magnesium 1.7 mg/dL (1.7-2.3); Osmolality Calculated 293 mOsm/kg (285-295); Sodium 136 mmol/L (136-145)
[2023-03-04] MEDS: lisinopril 20 mg Tablet 40 MG PO (08:45)
[2023-03-04] MEDS: amlodipine 10 mg Tablet PO (08:45)
[2023-03-04] MEDS: insulin lispro 100 unit/1 mL SUBCUT ×3 (08:45→17:12)
[2023-03-04] MEDS: docusate sodium 100 mg Capsule PO ×2 (08:45→17:12)
[2023-03-04] MEDS: aspirin 81 mg EC Tablet PO (08:45)
[2023-03-04 11:24] LABS: Glucose Point of Care 250 mg/dL (70-110)
--- NOTE | 2023-03-04 12:17 | PM.PN ---
Subjective Subjective: Patient did well with physical therapy Most likely able to go home However heart rate dipped down to low 30s 2-1 AV block Mobitz type II will consult Dr. Hawkins spoke with him this morning Patient is hemodynamically stable currently not on any AV eugenio blocking agent Patient is doing well does not need supervision Vitals/I&O/Wt Last Vital Signs Temp 97.8 F 03/04/23 11:27 Pulse 89 03/04/23 11:52 Resp 18 03/04/23 11:52 BP 139/75 03/04/23 11:27 Pulse Ox 96 03/04/23 11:52 O2 Del Method Room Air 03/04/23 11:52 03/03/23 03/04/23 03/04/23 22:59 06:59 14:59 Intake Total 338.75 / 1352.50 240 / 240 Output Total 1700 / 2450 Balance -1361.25 / -1097.50 240 / 240 Weight last 48 hrs Weight 94.801 kg Weight 96.116 kg Weight 96.162 kg Weight 96.388 kg Physical Exam Narrative: Awake and alert Chronic deficits No new deficit noted Speech is normal able to move his extremities to some extent Able to understand verbal commands Grajeda catheter in place S1, S2 Hemodynamic stable No new deficit Currently doing well on room air Urinary Catheter Management: Grajeda: Cath Placed During This Visit: yes Reason for Continuing Indwelling Catheter: Accurate Measurement of Urinary Output in Critically Ill Patients Urinary Catheter Date of Insertion: 03/02/23 Urinary Catheter Time of Insertion: 02:09 Data 03/04/23 06:05 03/04/23 06:05 A&P Assessment and plan (1) Marijuana abuse: (2) HTN (hypertension): Qualifiers: Hypertension type: essential hypertension Qualified Code(s): I10 - Essential (primary) hypertension (3) CAD (coronary artery disease): (4) Carotid stenosis: (5) Diabetes: (6) Stroke: (7) History of cerebrovascular accident: (8) Acute alteration in mental status: (9) Sleep apnea: (10) Mobitz type II block: Plan Mobitz type II block 2-1 AV block, discussed with Dr. Hawkins who will evaluate the patient today I will remove his Grajeda catheter Did very well with physical therapy I do believe he will be able to go home he does not need any rehab at this point No new focal deficit Speech is clear and he is back to baseline Continue insulin with sliding scale along antihypertensive regimen Patient is not on any AV eugenio blocking agent Full code DVT prophylaxis on board Attestations Medical Necessity Statement*: Continue medical management Diagnoses Marijuana abuse F12.10 Essential hypertension I10 Hypertension type: essential hypertension Coronary artery disease involving [place] coronary artery of [place] heart without angina pectoris I25.10 Stenosis of left carotid artery I65.29 Diabetes E11.9 Stroke I63.9 History of cerebrovascular accident Z86.73 Acute alteration in mental status R41.82 Obstructive sleep apnea syndrome G47.30 Mobitz type II block I44.1
--- NOTE | 2023-03-04 12:29 | PM.CONSULT ---
Providers/Reason For Consult Consulting Physician/Specialty*: Marco Antonio Hawkins MD/ Cardiology Reason for Consult*: 2:1 AV block Requesting Physician: Dr Mei Attending Physician: Luis Fernando Mei MD Primary Care Provider: RHETT Briceño History of Present Illness History of Present Illness Cal Oneill is a 57 year old male with limited functionality secondary to prior stroke was admitted to hospital with weakness and confusion. Denied chest pain. He is not a good historian. No family at bedside. He has hypertension and diabetes history. Patient denies any prior cardiac events or procedures. On EKG was noted to have bradycardia with 2-1 AV block. His bradycardia has resolved now. He is currently not on telemetry. He does not take any rate limiting medications. Echocardiogram performed during this admission shows normal LV systolic function. Review of Systems General: Reports: 10 or more systems reviewed and unremarkable except in HPI and below Medications/Allergies Home Medications Medication Instructions Recorded Confirmed Last Taken Type metformin 1,000 mg tablet 1,000 mg PO BID 05/07/19 12/06/21 11/19/21 History aspirin 81 mg tablet,delayed 81 mg PO DAILY #30 tabs 11/23/21 12/06/21 Unknown Rx release atorvastatin 40 mg tablet 40 mg PO BEDTIME #30 tabs 11/23/21 12/06/21 Unknown Rx dapagliflozin propanediol 5 mg 5 mg PO DAILY #30 tabs 11/23/21 12/06/21 Unknown Rx tablet (Farxiga) docusate sodium 100 mg capsule 100 mg PO BID #60 caps 11/23/21 12/06/21 Unknown Rx lisinopril 10 mg tablet 10 mg PO DAILY #30 tabs 11/23/21 12/06/21 Unknown Rx Allergies Allergy/AdvReac Type Severity Reaction Status Date / Time tramadol AdvReac ADR-Headach Verified 12/06/21 08:26 e Current Medications Generic Name Dose Route Start Last Admin Trade Name Freq PRN Reason Stop Dose Admin Acetaminophen 500 mg 03/02/23 00:32 03/04/23 02:58 Acetaminophen 500 Mg Tablet PO 500 mg Q4H PRN Administration fever Amlodipine Besylate 10 mg 03/02/23 15:25 03/04/23 08:45 Amlodipine 10 Mg Tablet PO 10 mg DAILY ADRIAN Administration Aspirin 81 mg 03/02/23 09:00 03/04/23 08:45 Aspirin 81 Mg Ec Tablet PO 81 mg DAILY ADRIAN Administration Atorvastatin Calcium 40 mg 03/03/23 09:00 03/03/23 21:46 Atorvastatin 40 Mg Tablet PO 40 mg BEDTIME ADRIAN Administration Docusate Sodium 100 mg 03/02/23 09:00 03/04/23 08:45 Docusate Sodium 100 Mg Capsule PO 100 mg BID ADRIAN Administration Haloperidol Lactate 1 mg 03/03/23 22:45 03/03/23 23:13 Haloperidol Inj 5 Mg/Ml Inj 1 Ml IVP 1 mg Q6H PRN Administration AGITATION Insulin Human Lispro 0 unit 03/02/23 08:00 03/04/23 08:45 Insulin Lispro 100 Unit/1 Ml SUBCUT 8 unit TIDWM ADRIAN Administration Protocol Lisinopril 40 mg 03/04/23 09:00 03/04/23 08:45 Lisinopril 20 Mg Tablet PO 40 mg DAILY ADRIAN Administration PFSH Acute PFSH: Medical History Displaced fracture of right femoral neck Fall Closed right hip fracture HTN (hypertension) CAD (coronary artery disease) Carotid stenosis Diabetes Hyperlipidemia Sleep apnea Stroke Surgical History S/P hip hemiarthroplasty History of appendectomy History of tonsillectomy Family History Other Diabetes Hyperlipidemia Hypertension Social History Smoking and tobacco/nicotine status: never used tobacco/nicotine Alcohol intake: never Substance/Drug Use: current Vitals/I&O/Wt Last Vital Signs Temp 97.8 F 03/04/23 11:27 Pulse 89 03/04/23 11:52 Resp 18 03/04/23 11:52 BP 139/75 03/04/23 11:27 Pulse Ox 96 03/04/23 11:52 O2 Del Method Room Air 03/04/23 11:52 03/03/23 03/04/23 03/04/23 22:59 06:59 14:59 Intake Total 338.75 / 1352.50 240 / 240 Output Total 1700 / 2450 Balance -1361.25 / -1097.50 240 / 240 Weight last 48 hrs Weight 209 lb Weight 211 lb 14.4 oz Weight 212 lb Weight 212 lb 8 oz Physical Exam Narrative: GENERAL: Patient is alert, awake and oriented x3. [] NECK: No jugular vein distension. [] HEENT: No cyanosis. No icterus. No pallor. [] HEART: Regular S1 and S2. No murmur, rub or gallop. [] LUNGS: Clear to auscultate bilaterally. [] CENTRAL NERVOUS SYSTEM: Grossly nonfocal. [] EXTREMITIES: Lower extremities with 1+ edema bilaterally. Pulses palpable in the lower extremities, both dorsalis pedis and posterior tibial. [] Urinary Catheter Management: Grajeda: Cath Placed During This Visit: yes Reason for Continuing Indwelling Catheter: Accurate Measurement of Urinary Output in Critically Ill Patients Urinary Catheter Date of Insertion: 03/02/23 Urinary Catheter Time of Insertion: 02:09 Data 03/04/23 06:05 03/05/23 05:55 A&P Assessment and plan (1) Heart block: (2) Hyperlipidemia: Qualifiers: Hyperlipidemia type: mixed hyperlipidemia Qualified Code(s): E78.2 - Mixed hyperlipidemia (3) Carotid stenosis: (4) HTN (hypertension): Qualifiers: Hypertension type: essential hypertension Qualified Code(s): I10 - Essential (primary) hypertension Plan Patient is functionally very limited secondary to prior stroke. Does not give a good history. No prior cardiac history according to him. On review of his EKGs, he was in Mobitz type I AV block initially. There is 1 EKG showing 2-1 AV block. He is not on rate limiting medications. Echo shows normal LV systolic function. Now heart rate has normalized. He is not on telemetry. We will put him back on telemetry tonight. If no more heart block, will recommend event monitor with holding/avoiding any medications/substances or drugs that can lower heart rate. His drug screen was positive for marijuana and high concentrations can cause bradycardia. If over the next 12 to 4 hours has no significant pauses or symptomatic bradycardia, can consider discharge with outpatient cardiology follow up Thank you for involving us with care of this patient. We will continue to follow. Please call with questions. Consult Attestations Medical Necessity Statement: Care expected to cross 2 midnights. Coding Level of Care Code Acute Code for [facility] Fwd Diagnoses Heart block I45.9 Mixed hyperlipidemia E78.2 Hyperlipidemia type: mixed hyperlipidemia Stenosis of left carotid artery I65.29 Essential hypertension I10 Hypertension type: essential hypertension
[2023-03-04] MEDS: chlorthalidone 25 mg Tablet PO (12:47)
[2023-03-04] MEDS: haloperidol inj 5 mg/mL INJ 1 mL 1 MG IVP (13:55)
[2023-03-04 16:39] LABS: Glucose Point of Care 259 mg/dL (70-110)
[2023-03-04] MEDS: atorvastatin 40 mg Tablet PO (21:02)
[2023-03-04 21:22] LABS: Glucose Point of Care 212 mg/dL (70-110)
[2023-03-05] VITALS (8 sets, daily range): BP systolic 158–173; BP diastolic 82–86; PULSE 65–85; RESP 16–18; TEMP 36.3–36.7; O2SAT 94–98
[2023-03-05 06:38] LABS: Blood Urea Nitrogen 19 mg/dL (6-20); Calcium 9.4 mg/dL (8.5-10.5); Carbon Dioxide 26 mmol/L (22-29); Chloride 102 mmol/L (98-107); Glomerular Filtration Rate 76.7 mL/min (90-130); Glucose 282 mg/dL (65-115); Osmolality Calculated 298 mOsm/kg (285-295); Sodium 138 mmol/L (136-145)
[2023-03-05 06:45] LABS: Glucose Point of Care 255 mg/dL (70-110)
--- NOTE | 2023-03-05 07:04 | P.PN_ITS ---
Subjective 2 Subjective: Patient is doing well. no chest pain Vitals/I&O/Wt Last Vital Signs Temp 97.6 F 03/05/23 04:00 Pulse 70 03/05/23 04:00 Resp 17 03/05/23 04:00 BP 164/84 03/05/23 04:00 Pulse Ox 98 03/05/23 04:00 O2 Del Method Room Air 03/05/23 04:00 03/04/23 03/05/23 03/05/23 22:59 06:59 14:59 Intake Total 240 / 720 Balance 240 / 720 Weight last 48 hrs Weight 207 lb 3.2 oz Weight 209 lb Physical Exam 2 Narrative: GENERAL: Patient is alert, awake and oriented x3. [] NECK: No jugular vein distension. [] HEENT: No cyanosis. No icterus. No pallor. [] HEART: Regular S1 and S2. No murmur, rub or gallop. [] LUNGS: Clear to auscultate bilaterally. [] CENTRAL NERVOUS SYSTEM: Grossly nonfocal. [] EXTREMITIES: Lower extremities with 1+ edema bilaterally. ] Urinary Catheter Management: Grajeda: Cath Placed During This Visit: yes, but has since been removed by the nurse Reason for Continuing Indwelling Catheter: Decision to DC Catheter Urinary Catheter Date of Insertion: 03/02/23 Urinary Catheter Time of Insertion: 02:09 Date Urinary Catheter Removed: 03/04/23 Time Urinary Catheter Discontinued: 18:05 Data 03/04/23 06:05 03/05/23 05:55 A&P Assessment and plan (1) Mobitz type II block: (2) Heart block: (3) Hyperlipidemia: Qualifiers: Hyperlipidemia type: mixed hyperlipidemia Qualified Code(s): E78.2 - Mixed hyperlipidemia (4) Carotid stenosis: (5) HTN (hypertension): Qualifiers: Hypertension type: essential hypertension Qualified Code(s): I10 - Essential (primary) hypertension Plan Patient is currently going into intermittent Mobitz type 2 AV block with heart rates in 50s. However he is asymptomatic with that. Patient will need event monitor to assess if heart block is symptomatic as currently it is not. Because of no symptoms, will hold off on pacemaker placement at this time Thank you for involving us with care of this patient. Close outpatient cardiology follow up. Please call with questions. Attestations 2 Medical Necessity Statement*: Care expected to cross 2 midnights. Coding Level of Care Code Acute Code for [facility] Fwd Diagnoses Mobitz type II block I44.1 Heart block I45.9 Mixed hyperlipidemia E78.2 Hyperlipidemia type: mixed hyperlipidemia Stenosis of left carotid artery I65.29 Essential hypertension I10 Hypertension type: essential hypertension
[2023-03-05] MEDS: lisinopril 20 mg Tablet 40 MG PO (08:14)
[2023-03-05] MEDS: insulin lispro 100 unit/1 mL SUBCUT ×2 (08:14→12:03)
[2023-03-05] MEDS: aspirin 81 mg EC Tablet PO (08:14)
[2023-03-05] MEDS: amlodipine 10 mg Tablet PO (08:14)
[2023-03-05] MEDS: chlorthalidone 25 mg Tablet PO (08:14)
[2023-03-05] MEDS: docusate sodium 100 mg Capsule PO (08:14)
[2023-03-05 11:16] LABS: Glucose Point of Care 251 mg/dL (70-110)
--- NOTE | 2023-03-05 13:04 | P.DS_ITS ---
Discharge Providers Date of Admission: 03/02/23 00:36 Date of Discharge: March 05, 2023 Attending Provider at Admission: Luis Fernando Mei MD Attending Provider at Discharge: Luis Fernando Mei MD Primary Care Provider: RHETT Briceño Diagnoses at Discharge Discharge Diagnosis (1) Heart block: Status: Acute (2) Hyperlipidemia: Status: Acute Qualifiers: Hyperlipidemia type: mixed hyperlipidemia Qualified Code(s): E78.2 - Mixed hyperlipidemia (3) Carotid stenosis: Status: Acute (4) HTN (hypertension): Status: Acute Qualifiers: Hypertension type: essential hypertension Qualified Code(s): I10 - Essential (primary) hypertension Reason for Visit Reason for Visit: lethargic, non-verbal Hospital Course Hospital Course 57-year male who has significant history of CVA, 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 Hawkins was consulted, patient does have bradycardic rhythm strip however there is no correlation with his symptoms at all. Patient is awake and alert hemodynamically stable no episode of syncope. He will need event monitor on discharge, pacemaker evaluation will be done after event monitor reading is finished. I will give him follow-up with Dr. Hawkins within 3 weeks. He remained hypertensive added amlodipine and lisinopril dose was increased to 20 mg. Patient did very well with PT. Physical Exam Narrative: Awake and alert Pleasant and cooperative No new focal deficit Slow to answer my questions however able to follow commands No slurring of speech Hemodynamically stable Urinary Catheter Management: Grajeda: Cath Placed During This Visit: yes, but has since been removed by the nurse Reason for Continuing Indwelling Catheter: Decision to DC Catheter Urinary Catheter Date of Insertion: 03/02/23 Urinary Catheter Time of Insertion: 02:09 Date Urinary Catheter Removed: 03/04/23 Time Urinary Catheter Discontinued: 18:05 Discharge Data Studies Completed and Pending Completed Studies During Hospitalization Category Date Time Status CT head thrombolytic [id number] Stat Cat Scan 03/01/23 22:04 Completed CXRP [XR chest 1V portable [id number]] Stat Exams 03/01/23 22:04 Completed CV. echo complete* [id number] Urgent Ultrasound 03/02/23 15:20 Completed Pending at discharge Category Date Time Status Sestamibi Stress Test Request Routine Exams 03/04/23 17:06 Stop Req Radiology Impressions Chest X-Ray 03/01/23 22:04 IMPRESSION: No acute findings. Head CT 03/01/23 22:04 IMPRESSION: 1. Extensive chronic microvascular disease with numerous old lacunar infarcts. Large old left FACILITIES FLIGHT CHECK PILOT infarct. 2. No acute intracranial lesion or injury ASSESSMENT: ASPECTS ([facility] Stroke Program Early CT Score) is 10. Laboratory Results WBC 10.85 10^3/uL (3.29-11.43) 03/04/23 06:05 RBC 5.56 10^6/uL (3.85-5.65) 03/04/23 06:05 Hgb 15.60 g/dL (11.27-16.99) 03/04/23 06:05 Hct 46.6 % (37-53) 03/04/23 06:05 MCV 83.8 fl (82-101) 03/04/23 06:05 MCH 28.1 pg (27-33) 03/04/23 06:05 MCHC 33.5 g/dL (30-55) 03/04/23 06:05 RDW 12.9 % (12.1-15.1) 03/04/23 06:05 Plt Count 237 10^3/cmm (157-399) 03/04/23 06:05 MPV 11.2 fL (7.4-10.4) H 03/04/23 06:05 Neut % (Auto) 63.5 % 03/04/23 06:05 Lymph % (Auto) 23.6 % 03/04/23 06:05 [place] % (Auto) 9.7 % 03/04/23 06:05 Eos % (Auto) 1.9 % 03/04/23 06:05 Baso % (Auto) 0.7 % 03/04/23 06:05 Neut # (Auto) 6.89 10^3/uL (1.8-7.7) 03/04/23 06:05 Lymph # (Auto) 2.6 10^3/uL (0.8-4.8) 03/04/23 06:05 [place] # (Auto) 1.1 10^3/uL (0.2-0.9) H 03/04/23 06:05 Eos # (Auto) 0.2 10^3/uL (0.0-0.8) 03/04/23 06:05 Baso # (Auto) 0.1 10^3/uL (0.0-0.1) 03/04/23 06:05 Nucleated RBC % (auto) 0 % 03/04/23 06:05 Nucleated RBCs # 0.0 /100WBC 03/04/23 06:05 PT 13.30 SECONDS (12.1-14.9) 03/01/23 21:59 INR 0.98 (0.8-1.2) 03/01/23 21:59 APTT 23.4 SECONDS (23.9-36.7) L 03/01/23 21:59 Specimen Type Arterial 03/01/23 22:30 Sample Site Radial, right 03/01/23 22:30 ABG pH 7.41 (7.35-7.45) 03/01/23 22:30 ABG pCO2 41.2 mmHg (35-45) 03/01/23 22:30 ABG pO2 70.2 mmHg (80.0-100.0) L 03/01/23 22:30 ABG PO2/FiO2 Ratio 0 03/01/23 22:30 ABG HCO3 25.9 mmol/L (22-26) 03/01/23 22:30 ABG Base Excess 1.0 mmol/L (-2.0-2.0) 03/01/23 22:30 Judd Test Pos 03/01/23 22:30 Hematocrit 46.6 % (42-52) 03/01/23 22:30 O2 Delivery Device None 03/01/23 22:30 FiO2 21.0 % 03/01/23 22:30 Machine Applicator Cementer ID [email or web address] 03/01/23 22:30 Sodium 138 mmol/L (136-145) 03/05/23 05:55 Potassium 4.0 mmol/L (3.5-5.1) 03/05/23 05:55 Chloride 102 mmol/L (98-107) 03/05/23 05:55 Carbon Dioxide 26 mmol/L (22-29) 03/05/23 05:55 Anion Gap 14.0 (5-19) 03/05/23 05:55 BUN 19 mg/dL (6-20) 03/05/23 05:55 Creatinine 1.0 mg/dL (0.7-1.2) 03/05/23 05:55 GFR Calculation 76.7 mL/min (90-130) L 03/05/23 05:55 Glucose 282 mg/dL (65-115) H 03/05/23 05:55 POC Glucose 251 mg/dL (70-110) H 03/05/23 11:14 Estimat Average Glucose 214 03/02/23 03:56 Hemoglobin A1c 9.1 % (4.0-6.0) H 03/02/23 03:56 Calculated Osmolality 298 mOsm/kg (285-295) H 03/05/23 05:55 Lactic Acid 1.3 mmol/L (0.5-2.2) 03/01/23 22:25 Calcium 9.4 mg/dL (8.5-10.5) 03/05/23 05:55 Magnesium 1.7 mg/dL (1.7-2.3) 03/04/23 06:05 Total Bilirubin 0.7 mg/dL (0.15-1.2) 03/01/23 21:59 AST 14 U/L (0-40) 03/01/23 21:59 ALT 25 U/L (0-41) 03/01/23 21:59 Alkaline Phosphatase 95 U/L (40-130) 03/01/23 21:59 C-Reactive Protein 3.0 mg/L (0.0-4.9) 03/02/23 03:56 Total Protein 7.7 g/dL (6.6-8.7) 03/01/23 21:59 Albumin 4.6 g/dL (3.5-5.2) 03/01/23 21:59 Globulin 3.1 g/dL (1.3-4.6) 03/01/23 21:59 Vitamin B12 534 pg/mL (232-1245) 03/02/23 03:56 TSH 1.13 uIU/mL (0.27-4.20) 03/02/23 03:56 Urine Color Yellow (Yellow) 03/01/23 22:42 Urine Appearance Clear (CLEAR) 03/01/23 22:42 Urine pH 6.5 (5-7) 03/01/23 22:42 Ur Specific [place] 1.005 (1.005-1.030) 03/01/23 22:42 Urine Protein Neg (Negative) 03/01/23 22:42 Urine Glucose (UA) 4+ (Normal) H 03/01/23 22:42 Urine Ketones Negative (Negative) 03/01/23 22:42 Urine Blood Neg (Negative) 03/01/23 22:42 Urine Nitrate Negative (Negative) 03/01/23 22:42 Urine Bilirubin Neg (Negative) 03/01/23 22:42 Urine Urobilinogen 1 mg/dL (Negative) H 03/01/23 22:42 Ur Leukocyte Esterase Negative (Negative) 03/01/23 22:42 Urine Opiates Screen Negative ng/mL (Negative) 03/01/23 22:42 Ur Barbiturates Screen Negative ng/mL (Negative) 03/01/23 22:42 Ur Phencyclidine Scrn Negative ng/mL (Negative) 03/01/23 22:42 Ur Amphetamines Screen Negative ng/mL (Negative) 03/01/23 22:42 U Benzodiazepines Scrn Negative ng/mL (Negative) 03/01/23 22:42 Urine Cocaine Screen Negative ng/mL (Negative) 03/01/23 22:42 U Marijuana (THC) Screen Positive ng/mL (Negative) H 03/01/23 22:42 Ethyl Alcohol < 10 mg/dL (0-10) 03/01/23 21:59 Adenovirus (PCR) Not detected (NOT DETECT) 03/02/23 01:44 C. pneumoniae DNA (PCR) Not detected (NOT DETECT) 03/02/23 01:44 Coronavirus 229E (PCR) Not detected (NOT DETECT) 03/02/23 01:44 Human Metapneumovir PCR Not detected (NOT DETECT) 03/02/23 01:44 Influenza A (H1) PCR Not detected (NOT DETECT) 03/02/23 01:44 Influ A (H1/09) PCR Not detected (NOT DETECT) 03/02/23 01:44 Influenza A (H3) PCR Not detected (NOT DETECT) 03/02/23 01:44 Influenza Type A (PCR) Not detected (NOT DETECT) 03/02/23 01:44 Influenza Type B (PCR) Not detected (NOT DETECT) 03/02/23 01:44 M. pneumoniae (PCR) Not detected (NOT DETECT) 03/02/23 01:44 Parainfluenza 1 (PCR) Not detected (NOT DETECT) 03/02/23 01:44 Parainfluenza 2 (PCR) Not detected (NOT DETECT) 03/02/23 01:44 Parainfluenza 3 (PCR) Not detected (NOT DETECT) 03/02/23 01:44 Parainfluenza 4 (PCR) Not detected (NOT DETECT) 03/02/23 01:44 RSV Type A (PCR) Not detected (NOT DETECT) 03/02/23 01:44 RSV Type B (PCR) Not detected (NOT DETECT) 03/02/23 01:44 Entero/Rhino (PCR) Not detected (NOT DETECT) 03/02/23 01:44 SARS-CoV-2 (PCR) Not detected (NOT DETECT) 03/02/23 01:44 Vitals Last Vital Signs Temp 97.4 F L 03/05/23 11:27 Pulse 65 03/05/23 11:27 Resp 18 03/05/23 11:27 BP 158/84 03/05/23 11:27 Pulse Ox 97 03/05/23 11:27 O2 Del Method Room Air 03/05/23 11:27 Discharge Plan Discharge Patient Disposition: Home Condition: Stable Prescriptions: New amlodipine 10 mg Tablet 10 mg PO DAILY Qty: 60 0RF aspirin 81 mg tablet,delayed release (DR/EC) 81 mg PO DAILY Qty: 30 0RF Continued metformin 1,000 mg tablet 1,000 mg PO BID atorvastatin 40 mg Tablet 40 mg PO BEDTIME Qty: 30 0RF aspirin 81 mg Tablet,Delayed Release (Dr/Ec) 81 mg PO DAILY Qty: 30 0RF docusate sodium 100 mg Capsule 100 mg PO BID Qty: 60 0RF Farxiga 5 mg tablet 5 mg PO DAILY Qty: 30 0RF Changed lisinopril 10 mg Tablet 20 mg PO DAILY Qty: 60 3RF Discharge Orders: Discharge Order (Routine); Ordered 03/05/23 Ordered By: Luis Fernando Mei Other Ambulatory Orders: MCT/Event Monitor 21 Days (Routine) Timeframe: 3 Weeks Facility: [facility] - Location: Radiology Ordered By: Luis Fernando Mei Referrals: Marco Antonio Hawkins M.D [Physician] - 3 weeks Stanley,RHETT Miranda [Primary Care Provider] - 03/11/23 8:00 am Discharge Diet: Cardiac Discharge Activity: Increase activity as tolerated Patient Instructions: Opioid Safety, Pain Management Discharge Attestations Time Spent in Discharge Care*: greater than 30 min Quality Metrics Clinical Quality Measures [ No reported AMI, CVA or VTE this stay] Coding Level of Care Code Acute Code for Chg Fwd Diagnoses Heart block I45.9 Mixed hyperlipidemia E78.2 Hyperlipidemia type: mixed hyperlipidemia Stenosis of left carotid artery I65.29 Essential hypertension I10 Hypertension type: essential hypertension
--- NOTE | 2023-03-05 15:46 | PC.SOCIAL ---
As family was leaving they requested HH, and stated to Charge nurse that they didnt have a preference. CM unable to go visit with them. Referral sent to [facility].
== END 2023-03-05 15:58 | disposition home or self-care (01) ==
LOC: ER 03-02 00:10 → ER IP 03-02 00:58 → MEDSURG 03-02 06:24
PROVIDERS: Internal Medicine; Admitting Provider Internal Medicine; Emergency Provider Emergency Medicine; PCP Nurse Practitioner Family; Visit Provider Internal Medicine
DX: I44.1 Atrioventricular block, second degree (principal); I45.9 Conduction disorder, unspecified; E78.2 Mixed hyperlipidemia; I65.29 Occlusion and stenosis of unspecified carotid artery; I10 Essential (primary) hypertension; Z79.84 Long term (current) use of oral hypoglycemic drugs; Z91.81 History of falling; I25.10 Atherosclerotic heart disease of native coronary artery without angina pectoris; E11.9 Type 2 diabetes mellitus without complications; E78.5 Hyperlipidemia, unspecified; G47.30 Sleep apnea, unspecified; Z86.73 Personal history of transient ischemic attack (TIA), and cerebral infarction without residual deficits; F12.10 Cannabis abuse, uncomplicated; Z79.4 Long term (current) use of insulin; R41.82 Altered mental status, unspecified; Z79.82 Long term (current) use of aspirin
CPT/HCPCS: 36415; 36416; 36600; 51702; 70450; 71045; 80048; 80053; 80306; 80307; 81003; 82607; 82803; 82962; 83036; 83605; 83735; 84443; 85025; 85610; 85730; 86140; 87486; 87581; 87633; 92523; 93005; 93306; 96361; 96372; 96374; 97116; 97161; 97167; 97530; 97535; 99285; G0378; J1630; J1815; J3490; J7030

== ENCOUNTER → 2023-06-05 11:09 | Outpatient (BNVA) | payer MEDICARE, SELFPAY | PROVIDERS: PCP Nurse Practitioner Family; Visit Provider Nurse Practitioner Family | DX: I25.10 Atherosclerotic heart disease of native coronary artery without angina pectoris (principal); I44.1 Atrioventricular block, second degree; I10 Essential (primary) hypertension | CPT/HCPCS: 93005; 99213 ==

== ENCOUNTER 2023-07-09 13:52 | Observation (INO) | payer MEDICARE, SELFPAY ==
[2023-07-09] VITALS (9 sets, daily range): BP systolic 158–198; BP diastolic 77–106; PULSE 50–80; RESP 13–20; TEMP 36.4–36.9; O2SAT 93–98
--- NOTE | 2023-07-09 13:58 | CT_ITS ---
WS: [id number] CTA HEAD AND NECK TECHNIQUE: Contrast enhanced CTA of the head and neck with coronal and sagittal reformatted images an d maximum intensity projection (MIP) images. NASCET criteria utilized. CLINICAL INFORMATION: cva COMPARISON: None. DLP: 589.[address] scans at [facility] use at least one of these dose optimization techniques: automated e xposure control; mA and/or kV adjustment per patient size (includes targeted exams where dose is matc hed to clinical indication); or iterative reconstruction. FINDINGS: Chronic LEFT PRICE ECONOMIST territory infarct with encephalomalacia. RIGHT: RIGHT common carotid artery is patent. Mild stenosis RIGHT proximal ICA measuring less than 50 %. Moderate atheromatous plaque. RIGHT ICA is patent to the skull base. Cavernous carotid calcificati on. Moderate supraclinoid ICA stenosis. LEFT: LEFT common carotid artery is patent. No significant LEFT ICA stenosis. LEFT ICA is patent to t he skull base. Moderate LEFT supraclinoid ICA stenosis. INTRACRANIAL CTA: LEFT dominant vertebral artery. Tiny RIGHT vertebral artery ends in PICA. Basilar artery is patent. M ild intracranial atheromatous disease. Normal vascularity to the RIGHT PRICE ECONOMIST territory. Decreased vascu larity to the LEFT PRICE ECONOMIST territory in the area of prior infarct. No proximal flow-limiting intracranial stenosis. Normal vascularity to the KASEY and proximal MCA caryl tories bilaterally. Slightly decreased vascularity to the anterior LEFT MCA territory may be chronic. Multiple chronic LEFT fallon radiata and basal ganglia lacunar infarcts. Advanced chronic emphysematous changes in the lung apices with numerous partially visualized subcenti meter pulmonary nodules the largest measuring 6 to 7 mm. Many of these appear partially calcified. Th is can be followed up with chest CT. CT/CT angio headneck* [id number] IMPRESSION: 1. Less than 50% cervical ICA stenosis bilaterally. 2. LEFT dominant vertebral artery. Tiny RIGHT vertebral artery ends in PICA. 3. No evidence of proximal intracranial flow-limiting stenosis. 4. Mild intracranial atheromatous disease. 5. Chronic decreased vascularity to the LEFT PRICE ECONOMIST territory in the area of prio r large PRICE ECONOMIST territory infarct with encephalomalacia. 6. Cavernous carotid calcification with moderate LEFT greater than RIGHT supra clinoid ICA stenosis. 7. Slightly decreased flow to the far anterior LEFT MCA territory indeterminat e but may be chronic. No proximal flow-limiting stenosis. 8. Numerous pulmonary nodules in the lung apices most of which appear to be pa rtially calcified. This can be further evaluated with chest CT.
--- NOTE | 2023-07-09 13:58 | CT_ITS ---
WS: [id number] CT HEAD TECHNIQUE: Noncontrast CT of the head obtained from the skullbase to the vertex. CLINICAL INFORMATION: Symptoms of acute stroke COMPARISON: CT 03/01/2023 DLP: [address] scans at [facility] use at least one of these dose optimization techniques: automated e xposure control; mA and/or kV adjustment per patient size (includes targeted exams where dose is matc hed to clinical indication); or iterative reconstruction. FINDINGS: No evidence of intracranial hemorrhage or mass effect. Ventricular system and basal cisterns are taylor nt. Moderate small vessel changes with moderate parenchymal volume loss. Chronic lacunar infarcts in the LEFT greater than RIGHT basal ganglia. Large chronic LEFT DOUGH MACHINE OPERATOR territory infarct with encephalomal acia. Ex vacuo dilatation LEFT lateral ventricle. Wallerian degeneration LEFT midbrain. Chronic lacun ar infarcts in the pa. Paranasal sinuses and mastoid air cells are well aerated. .Normal visualized soft tissues. CT/CT head thrombolytic [id number] IMPRESSION: 1. No evidence of intracranial hemorrhage or mass effect. 2. Chronic large LEFT DOUGH MACHINE OPERATOR territory infarct with encephalomalacia unchanged co mpared to previous. 3. Chronic lacunar infarcts in the LEFT greater than RIGHT basal ganglia. 4. No other significant changes. Notified Cong White DO at 07/09/2023 2:14 PM.
--- NOTE | 2023-07-09 13:58 | XR_ITS ---
WS: [id number] Portable AP upright chest, 07/09/2023 Clinical Data: dyspnea/cough Comparison: Portable chest, 03/01/2023 Findings: No nodules, masses or effusions are seen. The heart is normal. The pulmonary vascularity is not increased. No pneumonia or pneumothorax is seen. XR/XR chest 1V portable [id number] Impression: Negative chest.
--- NOTE | 2023-07-09 14:03 | ED_ITS ---
HPI - Neuro Symptoms/Deficit 2 General: Chief Complaint: Weakness Stated Complaint: Stroke Time Seen by Provider: 07/09/23 13:57 Source: patient and EMS Mode of arrival: ambulatory History of Present Illness: 57-year-old male presents emergency room via EMS he has previously had a stroke in the past he has increasing right-sided weakness. His last known well time was at 10:00 last night. It is very difficult to get a stroke score on him as he is noncompliant at 1 time he tells me he just does not want to follow the commands we are asking him to do. He has some previous right-sided weakness Location: right face History of same: Yes Severity: mild Quality: weak Relieving factors: none Exacerbating factors: none On Anticoagulants: No Associated symptoms: Deny chest pain, cough, diaphoresis, fevers/chills, headache(s), anorexia, malaise, nausea, seizures, short of breath, syncope, tingling, vertigo, vomiting or weakness Review of Systems 2 Const: Denies: fever(s), chills, malaise or diaphoresis Card: Denies: chest pain or syncope Resp: Denies: dyspnea GI: Denies: abdominal pain, nausea or vomiting : Denies: flank pain, dysuria, urinary frequency or urinary urgency Musc: Denies: neck pain or back pain Skin/Breast: Denies: rash Neuro: Denies: headache(s) or vertigo PFSH ED 2 PFSH: Medical History Encephalomalacia with cerebral infarction Closed right hip fracture History of cerebrovascular accident Diabetes Mobitz type II block HTN (hypertension) CAD (coronary artery disease) Heart block Marijuana abuse Acute alteration in mental status Displaced fracture of right femoral neck Fall Closed right hip fracture Carotid stenosis Hyperlipidemia Sleep apnea Stroke Surgical History S/P hip hemiarthroplasty History of appendectomy History of tonsillectomy Family History Other Diabetes Hyperlipidemia Hypertension Social History Smoking and tobacco/nicotine status: never used tobacco/nicotine Alcohol intake: never Substance/Drug Use: current NIH stroke score 2 NIHSS: Level Of Consciousness - 1a: 1 Level Of Consciousness Questions - 1b: One Correct Level Of Consciousness Commands - 1c: Both Correct Best Gaze - 2: Normal Visual Hart - 3: No Visual Loss Facial Palsy - 4: N ormal Motor Arm Right - 5: Drift Motor Arm Left - 5: No Drift Motor Leg Right - 6: Drift Motor Leg Left - 6: No Drift Limb Ataxia - 7: Present In Two Limbs Sensory - 8: Mild To Moderate Loss Best Language - 9: M ild/Moderate Aphasia Dysarthia - 10: Mild/Moderate Dysarthia Extinction And Inattention - 11: 1 Score: Total Score: 10 Physical Exam 2 Const: GENERAL APPEARANCE: comfortable ORIENTATION/CONSCIOUSNESS: Yes awake HENMT: COMMON NORMALS: normocephalic, atraumatic and hearing grossly normal bilaterally HEAD & SCALP: normocephalic and atraumatic Resp: COMMON NORMALS: normal respiratory effort, No retractions, No use of accessory muscles and clear to auscultation bilaterally AUSCULTATION: clear to auscultation bilaterally Cardio: COMMON NORMALS: regular rate, regular rhythm and No murmurs present (Cardio) RATE: regular rate RHYTHM: regular rhythm GI: COMMON NORMALS: Soft to palpation and No hepatosplenomegaly present A USCULTATION: Yes normoactive bowel sounds PALPATION: Yes Soft to palpation, No Tenderness to palpation present (GI), No Guarding due to palpation present (GI) and Yes No hepatosplenomegaly present Extremity: COMMON NORMALS: normal to inspection, capillary refill normal, no clubbing, cyanosis or edema, no calf tenderness and no pedal edema Skin: COMMON NORMALS: no rashes or lesions noted GENERAL SKIN EXAM: no rashes or lesions noted Course 2 Vital Signs: Vital signs: Vital Signs Temperature 97.9 F 07/10/23 23:11 Pulse Rate 37 L 07/11/23 05:18 Respiratory Rate 17 07/11/23 03:30 Blood Pressure 161/77 07/11/23 03:30 Pulse Oximetry 96 07/11/23 03:30 Oxygen Delivery Me thod Room Air 07/11/23 03:30 MDM - Neuro Symptoms/Deficit Medical Decision Making Patient stroke score is a 10 however majority of these points are likely due to old deficits. Family states he has chronic right-sided weakness. He has a decrease in his ability so rather suddenly in the last [address] of the head was negative CTA head and neck was also negative. He does have some leukocytosis. His chest x-ray is normal. There is a slight increase in his creatinine to 1.6 and his BUN is also slightly elevated. His tropes trended negative UA shows 4+ glucose there is 2+ blood however was a cath specimen and I believe this was secondary to the catheterization. Urine drug screen positive for marijuana. Patient is encephalopathic. No clear sign of infections patient given IV fluids and started on empiric antibiotic discussed with hospitalist orders written Medical Records I reviewed the patient's medical records. Lab Data I reviewed the patient's lab results. 07/11/23 04:56 07/11/23 04:56 Radiology Impressions Chest X-Ray 07/09/23 13:58 Impression: Negative chest. Head CT 07/09/23 13:58 IMPRESSION: 1. No evidence of intracranial hemorrhage or mass effect. 2. Chronic large LEFT [employer] territory infarct with encephalomalacia unchanged compared to previous. 3. Chronic lacunar infarcts in the LEFT greater than RIGHT basal ganglia. 4. No other significant changes. Notified Cong White DO at 07/09/2023 2:14 PM. Head/Neck CTA 07/09/23 13:58 IMPRESSION: 1. Less than 50% cervical ICA stenosis bilaterally. 2. LEFT dominant vertebral artery. Tiny RIGHT vertebral artery ends in PICA. 3. No evidence of proximal intracranial flow-limiting stenosis. 4. Mild intracranial atheromatous disease. 5. Chronic decreased vascularity to the LEFT [employer] territory in the area of prior large [employer] territory infarct with encephalomalacia. 6. Cavernous carotid calcification with moderate LEFT greater than RIGHT supraclinoid ICA stenosis. 7. Slightly decreased flow to the far anterior LEFT MCA territory indeterminate but may be chronic. No proximal flow-limiting stenosis. 8. Numerous pulmonary nodules in the lung apices most of which appear to be partially calcified. This can be further evaluated with chest CT. Laboratory Results WBC 14.97 10^3/uL (3.29-11.43) H 07/09/23 14:00 RBC 5.04 10^6/uL (3.85-5.65) 07/09/23 14:00 Hgb 14.30 g/dL (11.27-16.99) 07/09/23 14:00 Hct 43.9 % (37-53) 07/09/23 14:00 MCV 87.1 fl (82-101) 07/09/23 14:00 MCH 28.4 pg (27-33) 07/09/23 14:00 MCHC 32.6 g/dL (30-55) 07/09/23 14:00 RDW 13.1 % (12.1-15.1) 07/09/23 14:00 Plt Count 305 10^3/cmm (157-399) 07/09/23 14:00 MPV 10.3 fL (7.4-10.4) 07/09/23 14:00 Neut % (Auto) 71.7 % 07/09/23 14:00 Lymph % (Auto) 18.1 % 07/09/23 14:00 [place] % (Auto) 8.6 % 07/09/23 14:00 Eos % (Auto) 0.7 % 07/09/23 14:00 Baso % (Auto) 0.4 % 07/09/23 14:00 Neut # (Auto) 10.74 10^3/uL (1.8-7.7) H 07/09/23 14:00 Lymph # (Auto) 2.7 10^3/uL (0.8-4.8) 07/09/23 14:00 [place] # (Auto) 1.3 10^3/uL (0.2-0.9) H 07/09/23 14:00 Eos # (Auto) 0.1 10^3/uL (0.0-0.8) 07/09/23 14:00 Baso # (Auto) 0.1 10^3/uL (0.0-0.1) 07/09/23 14:00 Nucleated RBC % (auto) 0 % 07/09/23 14:00 Nucleated RBCs # 0.0 /100WBC 07/09/23 14:00 PT 13.80 SECONDS (12.1-14.9) 07/09/23 14:00 INR 1.02 (0.8-1.2) 07/09/23 14:00 APTT 23.3 SECONDS (23.9-36.7) L 07/09/23 14:00 D-Dimer 0.58 ug/mLFEU (0-0.59) 07/09/23 14:00 Sodium 139 mmol/L (136-145) 07/09/23 14:00 Potassium 4.4 mmol/L (3.5-5.1) 07/09/23 14:00 Chloride 103 mmol/L (98-107) 07/09/23 14:00 Carbon Dioxide 23 mmol/L (22-29) 07/09/23 14:00 Anion Gap 17.4 (5-19) 07/09/23 14:00 BUN 32 mg/dL (6-20) H 07/09/23 14:00 Creatinine 1.6 mg/dL (0.7-1.2) H 07/09/23 14:00 GFR Calculation 44.6 mL/min (90-130) L 07/09/23 14:00 Glucose 120 mg/dL (65-115) H 07/09/23 14:00 Calculated Osmolality 296 mOsm/kg (285-295) H 07/09/23 14:00 Lactic Acid 1.3 mmol/L (0.5-2.2) 07/09/23 14:00 Calcium 9.4 mg/dL (8.5-10.5) 07/09/23 14:00 Iron 40 ug/dL (59-158) L 07/09/23 14:00 TIBC 263 mcg/dl 07/09/23 14:00 % Saturation 15.2 % (20-50) L 07/09/23 14:00 Unsat Iron Binding 223 ug/dL (112-347) 07/09/23 14:00 Total Bilirubin 0.6 mg/dL (0.15-1.2) 07/09/23 14:00 AST 25 U/L (0-40) 07/09/23 14:00 ALT 29 U/L (0-41) 07/09/23 14:00 Alkaline Phosphatase 76 U/L (40-130) 07/09/23 14:00 Troponin T Baseline 23 ng/L (0-15) H 07/09/23 14:00 Troponin T 120 Minute 21.67 ng/L (0-15) H 07/09/23 16:05 Delta Troponin T -1.33 ABS# (0-10) L 07/09/23 16:05 Total Protein 6.8 g/dL (6.6-8.7) 07/09/23 14:00 Albumin 4.4 g/dL (3.5-5.2) 07/09/23 14:00 Globulin 2.4 g/dL (1.3-4.6) 07/09/23 14:00 Lipase 18 U/L (13-60) 07/09/23 14:00 Vitamin B12 656 pg/mL (232-1245) 07/09/23 14:00 Procalcitonin 0.07 ng/mL (0-0.5) 07/09/23 14:00 Prolactin 21.00 ng/mL (4.0-15.2) H 07/09/23 14:00 Urine Color Yellow (Yellow) 07/09/23 14:56 Urine Appearance Clear (CLEAR) 07/09/23 14:56 Urine pH 5 (5-7) 07/09/23 14:56 Ur Specific [place] 1.005 (1.005-1.030) 07/09/23 14:56 Urine Protein Neg (Negative) 07/09/23 14:56 Urine Glucose (UA) 4+ (Normal) H 07/09/23 14:56 Urine Ketones 1+ (Negative) H 07/09/23 14:56 Urine Blood 2+ (Negative) H 07/09/23 14:56 Urine Nitrate Negative (Negative) 07/09/23 14:56 Urine Bilirubin Neg (Negative) 07/09/23 14:56 Urine Urobilinogen Norm mg/dL (Negative) 07/09/23 14:56 Ur Leukocyte Esterase Negative (Negative) 07/09/23 14:56 Urine RBC Rare /hpf (0-2) 07/09/23 14:56 Urine WBC None /hpf (0-5) 07/09/23 14:56 Ur Eosinophil Smear Not Reportable 07/09/23 14:56 Ur Squamous Epith Cells None /hpf (0-5) 07/09/23 14:56 Amorphous Sediment Not Reportable 07/09/23 14:56 Urine Bacteria 1+ /hpf (NONE) H 07/09/23 14:56 Urine Mucus Trace /hpf 07/09/23 14:56 Urine Eosinophils No eosinophils seen 07/09/23 14:56 Ur Random Sodium 43 mmol/L 07/09/23 14:56 Ur Random Potassium 14 mmol/L 07/09/23 14:56 Ur Random Chloride 35 mmol/L 07/09/23 14:56 Urine Creatinine 60 mg/dL (39-259) 07/09/23 14:56 Urine Opiates Screen Negative ng/mL (Negative) 07/09/23 14:56 Ur Barbiturates Screen Negative ng/mL (Negative) 07/09/23 14:56 Ur Phencyclidine Scrn Negative ng/mL (Negative) 07/09/23 14:56 Ur Amphetamines Screen Negative ng/mL (Negative) 07/09/23 14:56 U Benzodiazepines Scrn Negative ng/mL (Negative) 07/09/23 14:56 Urine Cocaine Screen Negative ng/mL (Negative) 07/09/23 14:56 U Marijuana (THC) Screen Positive ng/mL (Negative) H 07/09/23 14:56 Adenovirus (PCR) Not detected (NOT DETECT) 07/09/23 18:14 C. pneumoniae DNA (PCR) Not detected (NOT DETECT) 07/09/23 18:14 Coronavirus 229E (PCR) Not detected (NOT DETECT) 07/09/23 18:14 Human Metapneumovir PCR Not detected (NOT DETECT) 07/09/23 18:14 Influenza A (H1) PCR Not detected (NOT DETECT) 07/09/23 18:14 Influ A (H1/09) PCR Not detected (NOT DETECT) 07/09/23 18:14 Influenza A (H3) PCR Not detected (NOT DETECT) 07/09/23 18:14 Influenza Type A (PCR) Not detected (NOT DETECT) 07/09/23 18:14 Influenza Type B (PCR) Not detected (NOT DETECT) 07/09/23 18:14 M. pneumoniae (PCR) Not detected (NOT DETECT) 07/09/23 18:14 Parainfluenza 1 (PCR) Not detected (NOT DETECT) 07/09/23 18:14 Parainfluenza 2 (PCR) Not detected (NOT DETECT) 07/09/23 18:14 Parainfluenza 3 (PCR) Not detected (NOT DETECT) 07/09/23 18:14 Parainfluenza 4 (PCR) Not detected (NOT DETECT) 07/09/23 18:14 RSV Type A (PCR) Not detected (NOT DETECT) 07/09/23 18:14 RSV Type B (PCR) Not detected (NOT DETECT) 07/09/23 18:14 Entero/Rhino (PCR) Not detected (NOT DETECT) 07/09/23 18:14 SARS-CoV-2 (PCR) Not detected (NOT DETECT) 07/09/23 18:14 All radiology interpretation(s) finalized by discharge Other Data I personally reviewed and interpreted the following: Discharge Plan Discharge Patient Disposition: Admitted As Inpatient Admit Provider: Oren Raymond Clinical Impression: Encephalopathy, GRETEL (acute kidney injury), Leukocytosis, Diabetes, History of cerebrovascular accident, CAD (coronary artery disease), HTN (hypertension) Condition: Stable Coding Level of Care Code ED Visualizer for Naman Orlando
[2023-07-09] MEDS: iohexol 350 mg/mL 500 mL Btl (per mL) IV (14:11)
[2023-07-09 14:17] LABS: Basophils # 0.1 10^3/uL (0.0-0.1); Basophils % 0.4 %; Eosinophils # 0.1 10^3/uL (0.0-0.8); Eosinophils % 0.7 %; Hematocrit 43.9 % (37-53); Lymphocytes # 2.7 10^3/uL (0.8-4.8); Lymphocytes % 18.1 %; Mean Corpuscular HGB Conc 32.6 g/dL (30-55); Mean Corpuscular Hemoglobin 28.4 pg (27-33); Mean Corpuscular Volume 87.1 fl (82-101); Mean Platelet Volume 10.3 fL (7.4-10.4); Monocytes # 1.3 10^3/uL (0.2-0.9); Monocytes % 8.6 %; Neutrophils # 10.74 10^3/uL (1.8-7.7); Neutrophils % 71.7 %; Nucleated Red Blood Cells % 0 %; Platelet Count 305 10^3/cmm (157-399); Red Blood Count 5.04 10^6/uL (3.85-5.65); Red Cell Distribution Width 13.1 % (12.1-15.1); White Blood Count 14.97 10^3/uL (3.29-11.43)
[2023-07-09 14:28] LABS: INR 1.02 (0.8-1.2); Partial Thromboplastin Time 23.3 SECONDS (23.9-36.7)
--- NOTE | 2023-07-09 14:29 | ECG_ITS ---
[facility] Test Date: 2023-07-09 Pat Name: Cal Oneill Department: Room: Gender: Male Paper Box Maker: : 1965 Requested By: Cong Salcedo Order Number: [id number] Jonathan MD: Marco Antonio Hawkins M.D. Measurements Intervals [place] Rate: 60 P: 0 UT: 0 QRS: -63 QRSD: 117 T: 56 QT: 431 QTc: 433 Interpretive Statements ATRIAL FIBRILLATION POSSIBLE ANTERIOR MYOCARDIAL INFARCTION , OF INDETERMINATE AGE [30 ms Q WAVE IN V3/V4, OR R < 0.2 mV IN V4] INFERIOR MYOCARDIAL INFARCTION , OF INDETERMINATE AGE [40+ ms Q WAVE AND/OR ST/T ABNORMALITY IN II/aVF] Compared to ECG 06/05/2023 11:16:32 AV block, complete (third-degree) no longer present Myocardial infarct finding still present Electronically Signed On 07-09-2023 15:54:47 CDT by Marco Antonio Hawkins M.D. [id number]
[2023-07-09 14:35] LABS: Lactic Sepsis W/Reflex 1.3 mmol/L (0.5-2.2)
[2023-07-09 14:37] LABS: Alanine Aminotransferase 29 U/L (0-41); Albumin Level 4.4 g/dL (3.5-5.2); Alkaline Phosphatase 76 U/L (40-130); Anion Gap 17.4 (5-19); Aspartate Amino Transferase 25 U/L (0-40); Blood Urea Nitrogen 32 mg/dL (6-20); Calcium 9.4 mg/dL (8.5-10.5); Carbon Dioxide 23 mmol/L (22-29); Chloride 103 mmol/L (98-107); Globulin 2.4 g/dL (1.3-4.6); Glomerular Filtration Rate 44.6 mL/min (90-130); Glucose 120 mg/dL (65-115); Lipase 18 U/L (13-60); Osmolality Calculated 296 mOsm/kg (285-295); Potassium 4.4 mmol/L (3.5-5.1); Sodium 139 mmol/L (136-145); Total Bilirubin 0.6 mg/dL (0.15-1.2); Total Protein 6.8 g/dL (6.6-8.7); Troponin(5th) Baseline 23 ng/L (0-15)
--- NOTE | 2023-07-09 15:58 | ECG_ITS ---
[facility] Test Date: 2023-07-09 Pat Name: Cal Oneill Department: Room: Gender: Male Manager Acute: : 1965 Requested By: Cong Salcedo Order Number: [id number] Jonathan MD: Marco Antonio Hawkins M.D. Measurements Intervals [place] Rate: 63 P: 37 [place]: 292 QRS: -66 QRSD: 112 T: 59 QT: 428 QTc: 439 Interpretive Statements SINUS RHYTHM WITH FIRST DEGREE AV BLOCK POSSIBLE ANTERIOR MYOCARDIAL INFARCTION , OF INDETERMINATE AGE [30 ms Q WAVE IN V3/V4, OR R < 0.2 mV IN V4] INFERIOR MYOCARDIAL INFARCTION , OF INDETERMINATE AGE [40+ ms Q WAVE AND/OR ST/T ABNORMALITY IN II/aVF] Compared to ECG 07/09/2023 14:29:01 First degree AV block now present Atrial fibrillation no longer present Myocardial infarct finding still present Electronically Signed On 07-09-2023 16:26:01 CDT by Marco Antonio Hawkins M.D. [email or web address]
[2023-07-09 16:32] LABS: Troponin 5 2HR 21.67 ng/L (0-15)
[2023-07-09 16:35] LABS: Troponin 5 2HR Delta -1.33 ABS# (0-10)
[2023-07-09 17:14] LABS: Amphetamines Screen Urine Negative (Negative); Barbiturates Screen Urine Negative (Negative); Benzodiazepines Screen Urine Negative (Negative); Cocaine Screen Urine Negative (Negative); Opiate Screen Urine Negative (Negative); PCP Screen Urine Negative (Negative); THC Screen Urine Positive (Negative)
[2023-07-09 17:16] LABS: Glucose Urine UA 4+ (Normal); Protein Urine Neg (Negative); Specific Gravity, Urine 1.005 (1.005-1.030); Urine Appearance Clear (CLEAR); Urine Color Yellow (Yellow); pH Urine 5 (5-7)
[2023-07-09 17:17] LABS: Add Urine Microscopic? YES; Bilirubin Urine Neg (Negative); Blood Urine 2+ (Negative); Ketones Urine 1+ (Negative); Leukocyte Esterase Urine Negative (Negative); Nitrate Urine Negative (Negative); Urobilinogen Urine Norm (Negative)
[2023-07-09 17:20] LABS: Add Urine Culture? No; Bacteria Urine 1+ /hpf; Mucus Urine TRACE /hpf; RBC Urine RARE /hpf (0-2)
--- NOTE | 2023-07-09 17:53 | P.HP_ITS ---
Providers/Chief Complaint 2 Primary Care Provider: RHETT Briceño Chief Complaint: Stroke History of Present Illness Cal Oneill is a 57 year old male with past history of extensive stroke, type II Mobitz heart block, CAD, hypertension, encephalomalacia was brought into the ER by the son today because patient was behaving altered. As per the ER physician patient son thought that he was not able to move his right side more than usual hence he was brought to the ER with poor oral intake. Son is not currently available to participate in history. On calling the cell phone in the chart is going directly to voicemail. Patient himself is not able to participate in history taking. Patient himself is laying comfortably in bed with occasional episode of screaming. He is alert to self, date of but is not alert to place, time, year, as per the ER physician patient lives with her son but patient himself is not able to tell me the same and not even able to tell me the name of the son. Blood work in the ER showed a white count of 14.9, creatinine of 1.6, blood sugar of 120, negative cycle [address] head negative for acute stroke and consistent with significant chronic left SYNTHETIC DEPARTMENT SUPERVISOR territory infarct with encephalomalacia unchanged from before. Review of Systems 2 General: Reports: ROS unobtainable due to mental status Medications/Allergies Home Medications Medication Instructions Recorded Confirmed Last Taken Type metformin 1,000 mg tablet 1,000 mg PO BID 05/07/19 07/09/23 07/08/23 History atorvastatin 40 mg tablet 40 mg PO BEDTIME #30 tabs 11/23/21 07/09/23 07/08/23 Rx amlodipine 10 mg tablet 10 mg PO DAILY #60 tabs 03/05/23 07/09/23 07/08/23 Rx aspirin 81 mg tablet,delayed 81 mg PO DAILY #30 tabs 03/05/23 07/09/23 07/08/23 Rx release dapagliflozin propanediol 5 mg 5 mg PO DAILY 07/09/23 07/09/23 07/08/23 History tablet (Farxiga) lisinopril 20 mg tablet 20 mg PO DAILY 07/09/23 07/09/23 07/08/23 History Allergies Allergy/AdvReac Type Severity Reaction Status Date / Time tramadol AdvReac ADR-Headach Verified 06/05/23 10:19 e PFSH Acute 2 PFSH: Medical History (Updated 07/09/23 @ 17:55 by Oren Raymond MD) Encephalomalacia with cerebral infarction Closed right hip fracture History of cerebrovascular accident Diabetes Mobitz type II block HTN (hypertension) CAD (coronary artery disease) Heart block Marijuana abuse Acute alteration in mental status Displaced fracture of right femoral neck Fall Closed right hip fracture Carotid stenosis Hyperlipidemia Sleep apnea Stroke Surgical History S/P hip hemiarthroplasty History of appendectomy History of tonsillectomy Family History Other Diabetes Hyperlipidemia Hypertension Social History Smoking and tobacco/nicotine status: never used tobacco/nicotine Alcohol intake: never Substance/Drug Use: current Vitals/I&O/Wt Last Vital Signs Temp 98.4 F 07/09/23 14:04 Pulse 66 07/09/23 16:40 Resp 13 07/09/23 16:40 BP 177/85 07/09/23 16:40 Pulse Ox 97 07/09/23 16:40 O2 Del Method Room Air 07/09/23 14:04 Physical Exam 2 Narrative: General: No acute distress, awake, alert to self, alert to date of but not place, time, year. HEENT: PERRLA, pupils bilaterally equal and reactive Chest: Normal vesicular breath sounds, no added sounds, equal good air entry bilaterally CVS: S1-S2 regular, no murmurs, no tachycardia, no gallops, no rubs Abdomen: Soft, nontender, no organomegaly, bowel sounds present Neuro: No focal deficits, no facial deformity, AO x3, power 5/5 in all limbs Data 07/10/23 02:35 07/10/23 02:35 Other Labs: Radiology Impressions Chest X-Ray 07/09/23 13:58 Impression: Negative chest. Head CT 07/09/23 13:58 IMPRESSION: 1. No evidence of intracranial hemorrhage or mass effect. 2. Chronic large LEFT SYNTHETIC DEPARTMENT SUPERVISOR territory infarct with encephalomalacia unchanged compared to previous. 3. Chronic lacunar infarcts in the LEFT greater than RIGHT basal ganglia. 4. No other significant changes. Notified Cong White DO at 07/09/2023 2:14 PM. Head/Neck CTA 07/09/23 13:58 IMPRESSION: 1. Less than 50% cervical ICA stenosis bilaterally. 2. LEFT dominant vertebral artery. Tiny RIGHT vertebral artery ends in PICA. 3. No evidence of proximal intracranial flow-limiting stenosis. 4. Mild intracranial atheromatous disease. 5. Chronic decreased vascularity to the LEFT SYNTHETIC DEPARTMENT SUPERVISOR territory in the area of prior large SYNTHETIC DEPARTMENT SUPERVISOR territory infarct with encephalomalacia. 6. Cavernous carotid calcification with moderate LEFT greater than RIGHT supraclinoid ICA stenosis. 7. Slightly decreased flow to the far anterior LEFT MCA territory indeterminate but may be chronic. No proximal flow-limiting stenosis. 8. Numerous pulmonary nodules in the lung apices most of which appear to be partially calcified. This can be further evaluated with chest CT. Laboratory Results WBC 14.97 10^3/uL (3.29-11.43) H 07/09/23 14:00 RBC 5.04 10^6/uL (3.85-5.65) 07/09/23 14:00 Hgb 14.30 g/dL (11.27-16.99) 07/09/23 14:00 Hct 43.9 % (37-53) 07/09/23 14:00 MCV 87.1 fl (82-101) 07/09/23 14:00 MCH 28.4 pg (27-33) 07/09/23 14:00 MCHC 32.6 g/dL (30-55) 07/09/23 14:00 RDW 13.1 % (12.1-15.1) 07/09/23 14:00 Plt Count 305 10^3/cmm (157-399) 07/09/23 14:00 MPV 10.3 fL (7.4-10.4) 07/09/23 14:00 Neut % (Auto) 71.7 % 07/09/23 14:00 Lymph % (Auto) 18.1 % 07/09/23 14:00 [place] % (Auto) 8.6 % 07/09/23 14:00 Eos % (Auto) 0.7 % 07/09/23 14:00 Baso % (Auto) 0.4 % 07/09/23 14:00 Neut # (Auto) 10.74 10^3/uL (1.8-7.7) H 07/09/23 14:00 Lymph # (Auto) 2.7 10^3/uL (0.8-4.8) 07/09/23 14:00 [place] # (Auto) 1.3 10^3/uL (0.2-0.9) H 07/09/23 14:00 Eos # (Auto) 0.1 10^3/uL (0.0-0.8) 07/09/23 14:00 Baso # (Auto) 0.1 10^3/uL (0.0-0.1) 07/09/23 14:00 Nucleated RBC % (auto) 0 % 07/09/23 14:00 Nucleated RBCs # 0.0 /100WBC 07/09/23 14:00 PT 13.80 SECONDS (12.1-14.9) 07/09/23 14:00 INR 1.02 (0.8-1.2) 07/09/23 14:00 APTT 23.3 SECONDS (23.9-36.7) L 07/09/23 14:00 Sodium 139 mmol/L (136-145) 07/09/23 14:00 Potassium 4.4 mmol/L (3.5-5.1) 07/09/23 14:00 Chloride 103 mmol/L (98-107) 07/09/23 14:00 Carbon Dioxide 23 mmol/L (22-29) 07/09/23 14:00 Anion Gap 17.4 (5-19) 07/09/23 14:00 BUN 32 mg/dL (6-20) H 07/09/23 14:00 Creatinine 1.6 mg/dL (0.7-1.2) H 07/09/23 14:00 GFR Calculation 44.6 mL/min (90-130) L 07/09/23 14:00 Glucose 120 mg/dL (65-115) H 07/09/23 14:00 Calculated Osmolality 296 mOsm/kg (285-295) H 07/09/23 14:00 Lactic Acid 1.3 mmol/L (0.5-2.2) 07/09/23 14:00 Calcium 9.4 mg/dL (8.5-10.5) 07/09/23 14:00 Total Bilirubin 0.6 mg/dL (0.15-1.2) 07/09/23 14:00 AST 25 U/L (0-40) 07/09/23 14:00 ALT 29 U/L (0-41) 07/09/23 14:00 Alkaline Phosphatase 76 U/L (40-130) 07/09/23 14:00 Troponin T Baseline 23 ng/L (0-15) H 07/09/23 14:00 Troponin T 120 Minute 21.67 ng/L (0-15) H 07/09/23 16:05 Delta Troponin T -1.33 ABS# (0-10) L 07/09/23 16:05 Total Protein 6.8 g/dL (6.6-8.7) 07/09/23 14:00 Albumin 4.4 g/dL (3.5-5.2) 07/09/23 14:00 Globulin 2.4 g/dL (1.3-4.6) 07/09/23 14:00 Lipase 18 U/L (13-60) 07/09/23 14:00 Urine Color Yellow (Yellow) 07/09/23 14:56 Urine Appearance Clear (CLEAR) 07/09/23 14:56 Urine pH 5 (5-7) 07/09/23 14:56 Ur Specific [place] 1.005 (1.005-1.030) 07/09/23 14:56 Urine Protein Neg (Negative) 07/09/23 14:56 Urine Glucose (UA) 4+ (Normal) H 07/09/23 14:56 Urine Ketones 1+ (Negative) H 07/09/23 14:56 Urine Blood 2+ (Negative) H 07/09/23 14:56 Urine Nitrate Negative (Negative) 07/09/23 14:56 Urine Bilirubin Neg (Negative) 07/09/23 14:56 Urine Urobilinogen Norm mg/dL (Negative) 07/09/23 14:56 Ur Leukocyte Esterase Negative (Negative) 07/09/23 14:56 Urine RBC Rare /hpf (0-2) 07/09/23 14:56 Urine WBC None /hpf (0-5) 07/09/23 14:56 Ur Squamous Epith Cells None /hpf (0-5) 07/09/23 14:56 Amorphous Sediment Not Reportable 07/09/23 14:56 Urine Bacteria 1+ /hpf (NONE) H 07/09/23 14:56 Urine Mucus Trace /hpf 07/09/23 14:56 Urine Opiates Screen Negative ng/mL (Negative) 07/09/23 14:56 Ur Barbiturates Screen Negative ng/mL (Negative) 07/09/23 14:56 Ur Phencyclidine Scrn Negative ng/mL (Negative) 07/09/23 14:56 Ur Amphetamines Screen Negative ng/mL (Negative) 07/09/23 14:56 U Benzodiazepines Scrn Negative ng/mL (Negative) 07/09/23 14:56 Urine Cocaine Screen Negative ng/mL (Negative) 07/09/23 14:56 U Marijuana (THC) Screen Positive ng/mL (Negative) H 07/09/23 14:56 Micro: Microbiology 07/09/23 14:37 Blood Culture - Preliminary Blood SPECIMEN COLLECTED A&P Assessment and plan (1) Encephalopathy: Most likely in setting of significant encephalomalacia from stroke before. Given significant encephalomalacia patient is at risk of seizures as well. No documented seizures in the past or while in the ER. Cannot rule out infectious process. He does have mild leukocytosis though does not have sign of UTI or pneumonia for now as patient remains on room air. Chest x-ray negative for consolidation. Check blood culture, urine culture, respiratory viral panel, urine drug screen, MRSA swab, procalcitonin, prolactin level. Encephalopathy could be in setting of GRETEL. Start on gentle IV hydration. Cannot rule out mild aspiration pneumonia. For now start empirically on IV Zosyn. (2) GRETEL (acute kidney injury): Creatinine up to 1.6. Baseline creatinine normal. Could be in setting of dehydration. Check urine lites, urine creatinine, urine eosinophils. Medical reconciliation done for nephrotoxic drugs. For now we will hold off on any imaging. If creatinine does not improve will plan for CT abdomen pelvis. Check BMP daily. Monitor electrolytes. (3) Leukocytosis: Could be in setting of dehydration but cannot rule out infectious process. Treatment as above. (4) HTN (hypertension): Goal blood pressure less than 140/90 mmHg. For now continue with home dose of amlodipine and lisinopril. Will uptitrate as for goal blood pressures. Qualifiers: Hypertension type: essential hypertension Qualified Code(s): I10 - Essential (primary) hypertension (5) Diabetes: Last A1c from March 04 0.1. Insulin sliding scale. Patient takes metformin at home. (6) Encephalomalacia with cerebral infarction: Plan Full code for now. Will discuss in detail with the patient family once available. NPO. PT/OT/speech therapy. Famotidine for PUD prophylaxis Heparin 5000 every 12 hourly for DVT prophylaxis. Attestations 2 Medical Necessity Statement*: Admission for more than 2 midnights for management of encephalopathy in a patient with baseline encephalomalacia due to significant stroke while etiology is ruled out Diagnoses Encephalopathy G93.40 GRETEL (acute kidney injury) N17.9 Leukocytosis D72.829 Essential hypertension I10 Hypertension type: essential hypertension Diabetes E11.9 Encephalomalacia with cerebral infarction G93.89; I63.9
[2023-07-09] MEDS: piperacillin-tazobactam 3.375 GM in sodium chloride 0.9% (plus) 50 ML IV ×2 (18:15→23:44)
[2023-07-09] MEDS: sodium chloride 0.9% 1,000 ML 999 ML IV (18:15)
[2023-07-09 18:45] LABS: D Dimer 0.58 ug/mLFEU (0-0.59)
[2023-07-09 18:46] LABS: Potassium, Radom Urine 14 mmol/L; Urine Random Chloride 35 mmol/L; Urine Random Sodium 43 mmol/L
[2023-07-09 19:25] LABS: Procalcitonin 0.07 ng/mL (0-0.5)
[2023-07-09] MEDS: sodium chloride 0.9% 1,000 ML 75 ML IV (20:23)
[2023-07-09 20:28] LABS: Adenovirus Not Detected (NOT DETECT); Chlamydia Pneumoniae Not Detected (NOT DETECT); Coronavirus 229E,HKU1,NL63,OC4 Not Detected (NOT DETECT); Human Metapneumovirus Not Detected (NOT DETECT); Human Rhinovirus/Enterovirus Not Detected (NOT DETECT); Influenza A Not Detected (NOT DETECT); Influenza A H1 Not Detected (NOT DETECT); Influenza A H1-2009 Not Detected (NOT DETECT); Influenza A H3 Not Detected (NOT DETECT); Influenza B Not Detected (NOT DETECT); Mycoplasma Pneumoniae Not Detected (NOT DETECT); Parainfluenza Virus Type 1 Not Detected (NOT DETECT); Parainfluenza Virus Type 2 Not Detected (NOT DETECT); Parainfluenza Virus Type 3 Not Detected (NOT DETECT); Parainfluenza Virus Type 4 Not Detected (NOT DETECT); Respiratory Syncytial Virus A Not Detected (NOT DETECT); Respiratory Syncytial Virus B Not Detected (NOT DETECT); SARS-COV-2 Not Detected (NOT DETECT)
[2023-07-09] MEDS: heparin 5,000 unit/mL INJ 1 mL 5000 UNIT SUBCUT (20:32)
[2023-07-09] MEDS: atorvastatin 40 mg Tablet PO (20:32)
[2023-07-09 20:40] LABS: Glucose Point of Care 132 mg/dL (70-110)
[2023-07-09 21:16] LABS: Troponin 5 6HR 23.35 ng/L (0-15); Troponin 5 6HR Delta 0.35 ng/L (0-12)
--- NOTE | 2023-07-09 22:35 | PC.NURSE ---
attempt to do NIH stoke scale on patient unsuccessful d/t patient non compliance with questions. Did see patient moving upper and lower extremties to do variouss things like moving the blankets and holding a cup. Was able to determine filter press tender head are weak with right side being more weak than left.
--- NOTE | 2023-07-09 23:33 | ECG_ITS ---
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 Measurements Intervals [place] Rate: 54 P: 0 RI: 0 QRS: -66 QRSD: 109 T: 51 QT: 443 QTc: 421 Interpretive Statements SINUS BRADYCARDIA WITH 2ND DEGREE AV BLOCK, 2:1 OR MOBITZ TYPE II POSSIBLE ANTERIOR MYOCARDIAL INFARCTION , OF INDETERMINATE AGE [30 ms Q WAVE IN V3/V4, OR R < 0.2 mV IN V4] INFERIOR MYOCARDIAL INFARCTION , OF INDETERMINATE AGE [40+ ms Q WAVE AND/OR ST/T ABNORMALITY IN II/aVF] CRITICAL TEST RESULT Compared to ECG 07/09/2023 16:17:07 Sinus rhythm no longer present First degree AV block no longer present Myocardial infarct finding still present Electronically Signed On 07-11-2023 0:17:19 CDT by Kalyan Hand M.D. [id number]
[2023-07-09 23:53] LABS: Iron 40 ug/dL (59-158); Percent Saturation 15.2 % (20-50); Total Iron Binding Capacity 263 mcg/dl; Unsaturated Iron Binding 223 ug/dL (112-347)
[2023-07-10] VITALS (18 sets, daily range): BP systolic 105–187; BP diastolic 63–83; PULSE 38–68; RESP 14–18; TEMP 36.4–36.6; O2SAT 93–97
[2023-07-10 00:09] LABS: Vitamin B12 656 pg/mL (232-1245)
[2023-07-10 01:06] LABS: Glucose Point of Care 104 mg/dL (70-110)
--- NOTE | 2023-07-10 02:04 | ECG_ITS ---
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 Measurements Intervals [place] Rate: 46 P: 0 [place]: 0 QRS: -60 QRSD: 105 T: 32 QT: 455 QTc: 399 Interpretive Statements SINUS BRADYCARDIA WITH 2ND DEGREE AV BLOCK, 2:1 OR MOBITZ TYPE II INFERIOR MYOCARDIAL INFARCTION , OF INDETERMINATE AGE [40+ ms Q WAVE AND/OR ST/T ABNORMALITY IN II/aVF] ANTEROSEPTAL MYOCARDIAL INFARCTION , OF INDETERMINATE AGE [40+ ms Q WAVE IN V1-V4] CRITICAL TEST RESULT Compared to ECG 07/09/2023 23:33:34 No significant changes Electronically Signed On 07-10-2023 23:52:58 CDT by Kalyan Hand M.D. [id number]
--- NOTE | 2023-07-10 02:21 | PC.NURSE ---
At 0200 it was noticed by this television writer and several nurses that the patient's telemetry was showing a rhythm with dropped QRS complexes and bradycardia. This nurse performed an EKG and sent it to Dr. Mast. The patient is drowsy and confused, which has been the case for the majority of the shift. Notified Dr. Mast of changes in the EKG report. Dr. Mast gave orders to continue to monitor and to perform Q1H vital sign checks and to check blood sugar.
[2023-07-10 02:28] LABS: Glucose Point of Care 150 mg/dL (70-110)
[2023-07-10 02:44] LABS: Basophils # 0.1 10^3/uL (0.0-0.1); Basophils % 0.6 %; Eosinophils # 0.1 10^3/uL (0.0-0.8); Eosinophils % 0.8 %; Hematocrit 44.2 % (37-53); Lymphocytes # 2.3 10^3/uL (0.8-4.8); Lymphocytes % 19.4 %; Mean Corpuscular Hemoglobin 28.1 pg (27-33); Mean Corpuscular Volume 85.2 fl (82-101); Mean Platelet Volume 10.1 fL (7.4-10.4); Monocytes % 8.1 %; Neutrophils % 70.4 %; Nucleated Red Blood Cells % 0 %; Platelet Count 281 10^3/cmm (157-399); Red Blood Count 5.19 10^6/uL (3.85-5.65); Red Cell Distribution Width 12.6 % (12.1-15.1)
[2023-07-10 03:05] LABS: Alanine Aminotransferase 29 U/L (0-41); Albumin Level 3.9 g/dL (3.5-5.2); Alkaline Phosphatase 75 U/L (40-130); Anion Gap 13.7 (5-19); Aspartate Amino Transferase 37 U/L (0-40); Blood Urea Nitrogen 23 mg/dL (6-20); Carbon Dioxide 25 mmol/L (22-29); Chloride 104 mmol/L (98-107); Creatinine Clr Calc Pharmacy 86.1828; Globulin 2.9 g/dL (1.3-4.6); Glomerular Filtration Rate 68.8 mL/min (90-130); Glucose 166 mg/dL (65-115); Osmolality Calculated 295 mOsm/kg (285-295); Phosphorus 3.7 mg/dL (2.5-4.5); Potassium 3.7 mmol/L (3.5-5.1); Sodium 139 mmol/L (136-145); Total Bilirubin 0.8 mg/dL (0.15-1.2); Total Protein 6.8 g/dL (6.6-8.7); Troponin(5th) Baseline 30 ng/L (0-15)
[2023-07-10 03:12] LABS: Procalcitonin 0.06 ng/mL (0-0.5); Thyroid Stimulating Hormone 0.66 uIU/mL (0.27-4.20)
--- NOTE | 2023-07-10 03:16 | ECG_ITS ---
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 Measurements Intervals [place] Rate: 59 P: 33 FL: 303 QRS: -63 QRSD: 113 T: 23 QT: 463 QTc: 462 Interpretive Statements SINUS BRADYCARDIA WITH FIRST DEGREE AV BLOCK POSSIBLE ANTERIOR MYOCARDIAL INFARCTION , OF INDETERMINATE AGE [30 ms Q WAVE IN V3/V4, OR R < 0.2 mV IN V4] INFERIOR MYOCARDIAL INFARCTION , PROBABLY OLD [40+ ms Q WAVE AND/OR ST/T ABNORMALITY IN II/aVF] Compared to ECG 07/10/2023 02:07:30 First degree AV block now present Myocardial infarct finding still present Electronically Signed On 07-11-2023 0:20:18 CDT by Kalyan Hand M.D. [id number]
[2023-07-10 03:23] LABS: Chol HDL Ratio 3.63 mg/dL (1.0-5.00); Cholesterol 149 mg/dL (0-200); HDL Cholesterol 41 mg/dL (60-100); LDL Cholesterol Calculated 89 mg/dL (50-129); LDL HDL Ratio 2.17 RATIO (0.00-3.22); Magnesium 2.1 mg/dL (1.7-2.3); Triglycerides 96 mg/dL (0-150)
[2023-07-10 03:26] LABS: Folate Level 10.1 ng/mL (4.5-32.2)
[2023-07-10 06:16] LABS: Troponin 5 2HR 22.98 ng/L (0-15)
[2023-07-10 06:17] LABS: Troponin 5 2HR Delta -7.02 ABS# (0-10)
[2023-07-10 06:35] LABS: Glucose Point of Care 141 mg/dL (70-110)
--- NOTE | 2023-07-10 08:18 | ECG_ITS ---
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 Measurements Intervals [place] Rate: 39 P: 0 VT: 0 QRS: -61 QRSD: 112 T: 28 QT: 455 QTc: 369 Interpretive Statements SINUS BRADYCARDIA WITH 2ND DEGREE AV BLOCK, 2:1 OR MOBITZ TYPE II POSSIBLE ANTERIOR MYOCARDIAL INFARCTION , OF INDETERMINATE AGE [30 ms Q WAVE IN V3/V4, OR R < 0.2 mV IN V4] INFERIOR MYOCARDIAL INFARCTION , OF INDETERMINATE AGE [40+ ms Q WAVE AND/OR ST/T ABNORMALITY IN II/aVF] CRITICAL TEST RESULT Compared to ECG 07/10/2023 03:16:42 First degree AV block no longer present Myocardial infarct finding still present Electronically Signed On 07-11-2023 0:21:18 CDT by Kalyan Hand M.D. [id number]
--- NOTE | 2023-07-10 08:18 | ECG_ITS ---
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 Measurements Intervals [place] Rate: 50 P: 0 [place]: 0 QRS: -66 QRSD: 123 T: 25 QT: 486 QTc: 445 Interpretive Statements Second-degree type II AV block and intermittent high degree AV block LEFT AXIS DEVIATION [QRS AXIS < -30] POSSIBLE ANTERIOR MYOCARDIAL INFARCTION , OF INDETERMINATE AGE [30 ms Q WAVE IN V3/V4, OR R < 0.2 mV IN V4] Compared to ECG 07/10/2023 03:21:14 Left-axis deviation now present Sinus bradycardia no longer present Myocardial infarct finding still present Electronically Signed On 07-10-2023 23:54:45 CDT by Kalyan Hand M.D. [email or web address]/[id number]
[2023-07-10 08:22] LABS: Troponin 5 6HR 21.17 ng/L (0-15)
[2023-07-10 08:24] LABS: Troponin 5 6HR Delta -8.83 ng/L (0-12)
[2023-07-10] MEDS: piperacillin-tazobactam 3.375 GM in sodium chloride 0.9% (plus) 50 ML IV ×3 (08:41→23:05)
[2023-07-10] MEDS: heparin 5,000 unit/mL INJ 1 mL 5000 UNIT SUBCUT ×2 (08:42→20:04)
[2023-07-10] MEDS: sodium chloride 0.9% 1,000 ML 75 ML IV ×2 (08:43→21:15)
[2023-07-10] MEDS: aspirin 81 mg EC Tablet PO (09:23)
[2023-07-10] MEDS: amlodipine 10 mg Tablet PO (10:08)
[2023-07-10] MEDS: lisinopril 20 mg Tablet PO (10:09)
--- NOTE | 2023-07-10 10:10 | PC.NURSE ---
Messaged Dr. Raymond patients blood pressure is 167/77 and HR 48 and has ran low all night. Dr. Raymond stated to give Amlodipine 10 mg and Lisinopril 20 mg.
[2023-07-10 11:44] LABS: Urine Creatinine 60 mg/dL (39-259)
--- NOTE | 2023-07-10 12:57 | P.PN_ITS ---
Subjective 2 Subjective: No acute events overnight. Seen with son and daughter at bedside. Patient is awake. Continues to remain confused. As per daughter this is his baseline. Most of the time patient is confused and not alert but awake. Son is the DPOA. As per the family members patient usually has to be fed, walks around by himself remains mostly confused. Yesterday he was not able to get out of the chair by himself and there were concerns for a new stroke hence they brought him to the ER. Patient has remained hemodynamically stable, afebrile on room air. Heart rates in between on the telemetry dropping down to high 30s. Patient does have history of Mobitz type II heart block from before. Vitals/I&O/Wt Last Vital Signs Temp 97.7 F 07/10/23 11:53 Pulse 65 07/10/23 11:53 Resp 14 07/10/23 11:53 BP 105/63 07/10/23 11:53 Pulse Ox 93 07/10/23 11:53 O2 Del Method Room Air 07/10/23 11:53 07/09/23 07/10/23 07/10/23 22:59 06:59 14:59 Intake Total 1200 / 1200 800 / 2000 925 / 925 Output Total 300 / 300 Balance 1200 / 1200 800 / 2000 625 / 625 Weight last 48 hrs Weight 98.486 kg Weight 98.6 kg Physical Exam 2 Narrative: General: No acute distress, awake, alert to self, alert to date of but not place, time, year. HEENT: PERRLA, pupils bilaterally equal and reactive Chest: Normal vesicular breath sounds, no added sounds, equal good air entry bilaterally CVS: S1-S2 regular, no murmurs, no tachycardia, no gallops, no rubs Abdomen: Soft, nontender, no organomegaly, bowel sounds present Neuro: No focal deficits, no facial deformity, AO x3, power 5/5 in all limbs Data 07/10/23 02:35 07/10/23 02:35 Micro: Microbiology 07/09/23 14:56 Bacterial Antigens - Final Urine Kidney 07/09/23 14:00 Blood Culture - Preliminary Blood SPECIMEN COLLECTED 07/09/23 14:56 Legionella Urinary Antigen - Final Unknown Source 07/09/23 14:37 Blood Culture - Preliminary Blood SPECIMEN COLLECTED A&P Assessment and plan (1) Encephalopathy: Most likely in setting of significant encephalomalacia from stroke before. Given significant encephalomalacia patient is at risk of seizures as well. No documented seizures in the past or while in the ER. Cannot rule out infectious process though remains unlikely. He does have mild leukocytosis though does not have sign of UTI or pneumonia for now as patient remains on room air. Chest x-ray negative for consolidation. Most likely worsening of patient's chronic process in setting of dehydration. Respiratory viral panel, urine drug screen, procalcitonin negative. Prolactin level elevated. No visible seizure activity since admission. Family denies any seizure history. Follow-up blood culture and urine culture. Continue with IV hydration with normal saline at 75 cc/h. Continue with empiric Zosyn. Leukocytosis is resolving. (2) GRETEL (acute kidney injury): Creatinine up to 1.6. Creatinine trending down to 1.1. Could be in setting of dehydration. Appreciate urine lites, urine creatinine, urine eosinophils. Medical reconciliation done for nephrotoxic drugs. For now we will hold off on any imaging. If creatinine does not improve will plan for CT abdomen pelvis. Check BMP daily. Monitor electrolytes. (3) Leukocytosis: Could be in setting of dehydration but cannot rule out infectious process. Resolving. Treatment as above. (4) HTN (hypertension): Goal blood pressure less than 140/90 mmHg. For now continue with home dose of amlodipine and lisinopril. Will uptitrate as for goal blood pressures. Qualifiers: Hypertension type: essential hypertension Qualified Code(s): I10 - Essential (primary) hypertension (5) Diabetes: Last A1c from March 04.1 Insulin sliding scale. Patient takes metformin at home. (6) Encephalomalacia with cerebral infarction: (7) Mobitz type II block: Chronic. Continue on telemetry. Monitor electrolytes. Patient has follow-up with chronometer assembler as an outpatient. Given his baseline mentation, quality of life pacemaker has been ruled out as an outpatient as per the daughter. (8) Goals of care, counseling/discussion: Discussed in detail with patient's daughter and the son at bedside. Son is the DPOA. We discussed patient does have significant encephalomalacia from previous stroke. As per the patient son and daughter 80 to 90% of time patient is mostly confused. We discussed etiology currently is high likelihood of worsening of his baseline dementia, encephalomalacia of croak. We discussed going forward they will be 3 options depending on the quality of life versus quantity of life preference of the DPOA. We discussed about 1 option being hospice with goals of keeping patient comfortable, other option would be to continue medical management but there is a high likelihood of recurrence of dehydration and the last option would be placement of PEG tube for feeding and nutrition and hydration though he is at a very high risk of dislodgment of the PEG tube due to high likelihood of confusion. We also discussed about CODE STATUS. Discussed that unfortunately patient has a poor quality of life and unfortunately there is no cure for his baseline mental condition. Discussed about heroic measures if and when his heart stops with chest compressions and mechanical ventilation. Brother and the sister will discuss further before making any decision. Plan Full code for now. Will discuss in detail with the patient family once available. Advance diet to dysphagia level 6 as per speech evaluation PT/OT/speech therapy. Famotidine for PUD prophylaxis Heparin 5000 every 12 hourly for DVT prophylaxis. Will request cognitive study Attestations 2 Medical Necessity Statement*: Requires further hospitalization further workup can be done for management of encephalopathy in a patient with baseline severe encephalomalacia for stroke, Mobitz type II heart block and goals of care discussion Diagnoses Encephalopathy G93.40 GRETEL (acute kidney injury) N17.9 Leukocytosis D72.829 Essential hypertension I10 Hypertension type: essential hypertension Diabetes E11.9 Encephalomalacia with cerebral infarction G93.89; I63.9 Mobitz type II block I44.1 Goals of care, counseling/discussion Z71.89
[2023-07-10 14:37] LABS: Eosinophil Urine No Eosinophils Seen
[2023-07-10 16:40] LABS: Glucose Point of Care 165 mg/dL (70-110)
[2023-07-10 16:40] LABS: Glucose Point of Care 172 mg/dL (70-110)
[2023-07-10] MEDS: famotidine 20 mg Tablet PO (18:39)
[2023-07-10] MEDS: insulin lispro 100 unit/1 mL SUBCUT (18:46)
[2023-07-10] MEDS: atorvastatin 40 mg Tablet PO (20:04)
[2023-07-10 20:26] LABS: Glucose Point of Care 156 mg/dL (70-110)
[2023-07-11] VITALS (17 sets, daily range): BP systolic 154–189; BP diastolic 67–77; PULSE 26–72; RESP 16–18; TEMP 36.3–36.8; O2SAT 93–98
[2023-07-11 05:38] LABS: Basophils # 0.1 10^3/uL (0.0-0.1); Basophils % 0.9 %; Eosinophils # 0.3 10^3/uL (0.0-0.8); Eosinophils % 2.3 %; Hematocrit 41.7 % (37-53); Lymphocytes # 3.3 10^3/uL (0.8-4.8); Lymphocytes % 30.4 %; Mean Corpuscular HGB Conc 33.3 g/dL (30-55); Mean Corpuscular Hemoglobin 28.4 pg (27-33); Mean Corpuscular Volume 85.3 fl (82-101); Mean Platelet Volume 11.2 fL (7.4-10.4); Monocytes # 0.8 10^3/uL (0.2-0.9); Monocytes % 7.8 %; Neutrophils # 6.27 10^3/uL (1.8-7.7); Nucleated Red Blood Cells % 0 %; Platelet Count 281 10^3/cmm (157-399); Red Blood Count 4.89 10^6/uL (3.85-5.65); Red Cell Distribution Width 12.9 % (12.1-15.1)
[2023-07-11 05:57] LABS: Alanine Aminotransferase 24 U/L (0-41); Albumin Level 3.8 g/dL (3.5-5.2); Alkaline Phosphatase 76 U/L (40-130); Anion Gap 16.2 (5-19); Aspartate Amino Transferase 23 U/L (0-40); Blood Urea Nitrogen 14 mg/dL (6-20); Carbon Dioxide 24 mmol/L (22-29); Chloride 106 mmol/L (98-107); Creatinine Clr Calc Pharmacy 95.3642; Globulin 2.4 g/dL (1.3-4.6); Glomerular Filtration Rate 76.7 mL/min (90-130); Glucose 106 mg/dL (65-115); Osmolality Calculated 295 mOsm/kg (285-295); Potassium 4.2 mmol/L (3.5-5.1); Sodium 142 mmol/L (136-145); Total Bilirubin 0.8 mg/dL (0.15-1.2); Total Protein 6.2 g/dL (6.6-8.7)
[2023-07-11] MEDS: acetaminophen 325 mg Tablet 650 MG PO ×2 (06:20→20:11)
[2023-07-11 06:41] LABS: Glucose Point of Care 122 mg/dL (70-110)
[2023-07-11] MEDS: morphine 4 mg/mL SDV 1 mL 2 MG IVP ×2 (08:25→13:50)
[2023-07-11] MEDS: famotidine 20 mg Tablet PO ×2 (08:26→18:28)
[2023-07-11] MEDS: piperacillin-tazobactam 3.375 GM in sodium chloride 0.9% (plus) 50 ML IV ×3 (08:26→23:31)
[2023-07-11] MEDS: aspirin 81 mg EC Tablet PO (08:26)
[2023-07-11] MEDS: amlodipine 10 mg Tablet PO (08:26)
[2023-07-11] MEDS: lisinopril 20 mg Tablet PO (08:26)
[2023-07-11] MEDS: heparin 5,000 unit/mL INJ 1 mL 5000 UNIT SUBCUT ×2 (08:26→20:10)
--- NOTE | 2023-07-11 09:43 | PC.CHAP ---
Pastoral Care Encounter/Spiritual Assessment Type of Contact [] Declined vice president fixed income visit [] Patient/Family/Request visit [] Outpatient visit [] Follow-up visit [] Physician referral [] Code/Alert [x] Routine visit [] Staff referral [] Actively dying [] Patient sleeping [] Family support [] [] Out of room [] Palliative care [] [] Receiving care in room [] Pre-surgical visit [] Trauma [] Long length of stay [] ICU visit [] Other: Relational/Emotional Strength [x] Patient feels connected with others/family/visitors/staff [] Distress [] Loneliness/isolation [] Abandonment Spirituality of Patient [] Person of Catie [] Attends Jain of their Catie [] Believes in Prayer [] Reads Bible or Restoration materials [x] There are Spiritual issues to be addressed Caustic Room Operator Interventions [] Prayer [x] Active listening [x] Non-anxious presence [] Spiritual/emotional support [] Crisis/trauma care [] Spiritual counseling [] Bereavement support [] Provided bereavement packet [] Provided Bible/devotional materials [] Provided toy/stuffed animal, coloring book to patient or family member [] Provided Communion [] Anointing/[place] [] Salvation [x] Completed spiritual assessment [] Other: Impact on Illness or Injury [] Angry [] Fearful [] Anxious [] Often cries [] Exhaustion [] Unable to work [] Unable to attend catholic [] Unable to walk/stand [] Unable to read [] Unable to drive [] Unable to eat/drink [] Unable to sleep [] Unable to be with family [] Patient intubated [] Other: Summary Time spent with patient 5 min
[2023-07-11] MEDS: sodium chloride 0.9% 1,000 ML 75 ML IV (11:15)
[2023-07-11 11:37] LABS: Glucose Point of Care 126 mg/dL (70-110)
[2023-07-11 14:14] LABS: Methicillin-Resist S.aureu PCR NOT DETECTED (NOT DETECTED)
--- NOTE | 2023-07-11 14:24 | PC.SOCIAL ---
Pg 2 IMM Explained to pt's daughter Pg 2 IMM. No questions voiced. Provided pt a copy. Initialed, dated, & timed a copy & placed in chart.
--- NOTE | 2023-07-11 15:04 | P.PN_ITS ---
Subjective 2 Subjective: No acute events overnight. Patient seen multiple times in the day. Sitting comfortably in the chair. Second time when seen seen with daughter at bedside. Patient seems to be at his baseline mentation. Has remained hemodynamically stable, afebrile on room air. Heart rate at baseline. Vitals/I&O/Wt Last Vital Signs Temp 97.3 F L 07/11/23 12:00 Pulse 52 L 07/11/23 12:00 Resp 18 07/11/23 13:50 BP 154/75 07/11/23 12:00 Pulse Ox 98 07/11/23 12:00 O2 Del Method Room Air 07/11/23 12:00 07/11/23 07/11/23 07/11/23 06:59 14:59 22:59 Intake Total 50 / 2115 1290 / 1290 Balance 50 / 1065 1290 / 1290 Weight last 48 hrs Weight 99.836 kg Weight 99.836 kg Weight 98.486 kg Weight 98.6 kg Physical Exam 2 Narrative: General: No acute distress, awake, alert to self, alert to date of but not place, time, year. HEENT: PERRLA, pupils bilaterally equal and reactive Chest: Normal vesicular breath sounds, no added sounds, equal good air entry bilaterally CVS: S1-S2 regular, no murmurs, no tachycardia, no gallops, no rubs Abdomen: Soft, nontender, no organomegaly, bowel sounds present Neuro: No focal deficits, no facial deformity, AO x3, power 5/5 in all limbs Data 07/11/23 04:56 07/11/23 04:56 Micro: Microbiology 07/09/23 14:00 Blood Culture - Preliminary Blood NEGATIVE TO DATE 07/09/23 14:37 Blood Culture - Preliminary Blood NEGATIVE TO DATE A&P Assessment and plan (1) Encephalopathy: Most likely in setting of significant encephalomalacia from stroke before. Given significant encephalomalacia patient is at risk of seizures as well. No documented seizures in the past or while in the ER. Cannot rule out infectious process though remains unlikely. He does have mild leukocytosis though does not have sign of UTI or pneumonia for now as patient remains on room air. Chest x-ray negative for consolidation. Most likely worsening of patient's chronic process in setting of dehydration. Respiratory viral panel, urine drug screen, procalcitonin negative. Prolactin level elevated. No visible seizure activity since admission. Family denies any seizure history. Follow-up blood culture and urine culture. Continue with IV hydration with normal saline at 75 cc/h. Continue with empiric Zosyn. Leukocytosis is resolving. (2) GRETEL (acute kidney injury): Creatinine up to 1.6. Creatinine trending down to 1.1. Could be in setting of dehydration. Appreciate urine lites, urine creatinine, urine eosinophils. Medical reconciliation done for nephrotoxic drugs. For now we will hold off on any imaging. If creatinine does not improve will plan for CT abdomen pelvis. Check BMP daily. Monitor electrolytes. (3) Leukocytosis: Could be in setting of dehydration but cannot rule out infectious process. Resolving. Treatment as above. (4) HTN (hypertension): Goal blood pressure less than 140/90 mmHg. For now continue with home dose of amlodipine and lisinopril. Will uptitrate as for goal blood pressures. Qualifiers: Hypertension type: essential hypertension Qualified Code(s): I10 - Essential (primary) hypertension (5) Diabetes: Last A1c from March 04.1 Insulin sliding scale. Patient takes metformin at home. (6) Encephalomalacia with cerebral infarction: (7) Mobitz type II block: Chronic. Continue on telemetry. Monitor electrolytes. Patient has follow-up with public relations player as an outpatient. Given his baseline mentation, quality of life pacemaker has been ruled out as an outpatient as per the daughter. (8) Goals of care, counseling/discussion: Discussed in detail with patient's daughter and the son at bedside. Son is the DPOA. We discussed patient does have significant encephalomalacia from previous stroke. As per the patient son and daughter 80 to 90% of time patient is mostly confused. We discussed etiology currently is high likelihood of worsening of his baseline dementia, encephalomalacia of croak. We discussed going forward they will be 3 options depending on the quality of life versus quantity of life preference of the DPOA. We discussed about 1 option being hospice with goals of keeping patient comfortable, other option would be to continue medical management but there is a high likelihood of recurrence of dehydration and the last option would be placement of PEG tube for feeding and nutrition and hydration though he is at a very high risk of dislodgment of the PEG tube due to high likelihood of confusion. We also discussed about CODE STATUS. Discussed that unfortunately patient has a poor quality of life and unfortunately there is no cure for his baseline mental condition. Discussed about heroic measures if and when his heart stops with chest compressions and mechanical ventilation. Brother and the sister will discuss further before making any decision. Plan Plan for the day: Blood pressure slightly elevated. Goal blood pressure less than 140/90 mmHg. For now continue with home dose of lisinopril and amlodipine. Will continue to monitor. Renal functions back to normal. Stop IV fluids. Patient tolerating oral diet well. Appreciate speech therapy evaluation. Switch to regular diet. Appreciate physical therapy evaluation. Patient unable to follow directions. Again discussed goals of care in detail with patient's daughter at bedside. She states she and her brother had discussed and would want the patient to be DNR/DNI. Going forward we discussed about long-term plans. Daughter was discussing about possible transition to [facility] for short-term for physical therapy. We discussed that unfortunately patient would not benefit from the same and is not able to follow directions. Daughter verbalizes understanding. Wants to go ahead with set up of hospice. Case management contacted CODE STATUS changed. CODE STATUS: As per DPOA and daughter. DNR/DNI. Regular diet PT/OT/speech therapy. Famotidine for PUD prophylaxis Heparin 5000 every 12 hourly for DVT prophylaxis. Attestations 2 Medical Necessity Statement*: Requires further hospitalization for severe cognitive impairment in a patient with baseline stroke, severe encephalomalacia poststroke, Mobitz type II heart block while hospice is set up Diagnoses Encephalopathy G93.40 GRETEL (acute kidney injury) N17.9 Leukocytosis D72.829 Essential hypertension I10 Hypertension type: essential hypertension Diabetes E11.9 Encephalomalacia with cerebral infarction G93.89; I63.9 Mobitz type II block I44.1 Goals of care, counseling/discussion Z71.89
[2023-07-11 17:13] LABS: Glucose Point of Care 138 mg/dL (70-110)
[2023-07-11] MEDS: atorvastatin 40 mg Tablet PO (20:11)
[2023-07-12] VITALS (8 sets, daily range): BP systolic 140–182; BP diastolic 58–90; PULSE 26–61; RESP 16–18; TEMP 36.3–36.4; O2SAT 92–98
--- NOTE | 2023-07-12 05:35 | PC.NURSE ---
Patient has slept well throughout the night. Patient monitored on telemetry with heart rate dropping down between the 20s and low 40s while resting and coming up into the 60s and 70s when awake.
[2023-07-12] MEDS: piperacillin-tazobactam 3.375 GM in sodium chloride 0.9% (plus) 50 ML IV (08:14)
[2023-07-12] MEDS: heparin 5,000 unit/mL INJ 1 mL 5000 UNIT SUBCUT (08:14)
[2023-07-12] MEDS: amlodipine 10 mg Tablet PO (08:15)
[2023-07-12] MEDS: aspirin 81 mg EC Tablet PO (08:15)
[2023-07-12] MEDS: lisinopril 20 mg Tablet PO (08:15)
[2023-07-12] MEDS: famotidine 20 mg Tablet PO (08:15)
--- NOTE | 2023-07-12 11:20 | PM.DCS ---
Discharge Providers Date of Admission: 07/09/23 20:08 Date of Discharge: July 12, 2023 Attending Provider at Admission: Oren Raymond MD Attending Provider at Discharge: Oren Raymond MD Primary Care Provider: RHETT Briceño Diagnoses at Discharge Discharge Diagnosis (1) Encephalopathy: Status: Acute (2) GRETEL (acute kidney injury): Status: Acute (3) Leukocytosis: Status: Acute (4) HTN (hypertension): Status: Acute Qualifiers: Hypertension type: essential hypertension Qualified Code(s): I10 - Essential (primary) hypertension (5) Diabetes: Status: Acute (6) Encephalomalacia with cerebral infarction: Status: Acute (7) Mobitz type II block: Status: Acute (8) Goals of care, counseling/discussion: Status: Acute Reason for Visit Reason for Visit: Stroke Hospital Course Hospital Course Cal Oneill is a 57 year old male with past history of extensive stroke, type II Mobitz heart block, CAD, hypertension, encephalomalacia was brought into the ER by the son today because patient was behaving altered. As per the ER physician patient son thought that he was not able to move his right side more than usual hence he was brought to the ER with poor oral intake. Son is not currently available to participate in history. On calling the cell phone in the chart is going directly to voicemail. Patient himself is not able to participate in history taking. Patient himself is laying comfortably in bed with occasional episode of screaming. He is alert to self, date of but is not alert to place, time, year, as per the ER physician patient lives with her son but patient himself is not able to tell me the same and not even able to tell me the name of the son. Patient was admitted to the hospital further evaluation and management with concerns for altered mental status in setting of acute kidney injury. On admission CT head was done which ruled out any acute stroke but was consistent with severe encephalomalacia. Patient did have leukocytosis on admission. He was started on broad-spectrum antibiotics with concerns for aspiration pneumonia. Diet was changed as per speech evaluation. Physical therapy was also tried but patient could not follow directions. He was continued on IV hydration and broad-spectrum antibiotics. His kidney functions have come back to its baseline. Given moderate to severe cognitive impairment in setting of severe encephalomalacia goals of care discussions were done in detail with the daughter and the son. Son is the DPOA. We discussed patient does have significant encephalomalacia from previous stroke. As per the patient son and daughter 80 to 90% of time patient is mostly confused. We discussed etiology currently is high likelihood of worsening of his baseline dementia, encephalomalacia of croak. We discussed going forward they will be 3 options depending on the quality of life versus quantity of life preference of the DPOA. We discussed about 1 option being hospice with goals of keeping patient comfortable, other option would be to continue medical management but there is a high likelihood of recurrence of dehydration and the last option would be placement of PEG tube for feeding and nutrition and hydration though he is at a very high risk of dislodgment of the PEG tube due to high likelihood of confusion. We also discussed about CODE STATUS. Discussed that unfortunately patient has a poor quality of life and unfortunately there is no cure for his baseline mental condition. Discussed about heroic measures if and when his heart stops with chest compressions and mechanical ventilation. DPOA decided for patient to be DNR/DNI and transition over to hospice which is being arranged. Physical Exam Narrative: General: No acute distress, awake, alert to self, alert to date of but not place, time, year. HEENT: PERRLA, pupils bilaterally equal and reactive Chest: Normal vesicular breath sounds, no added sounds, equal good air entry bilaterally CVS: S1-S2 regular, no murmurs, no tachycardia, no gallops, no rubs Abdomen: Soft, nontender, no organomegaly, bowel sounds present Neuro: No focal deficits, no facial deformity, AO x3, power 5/5 in all limbs Discharge Data Studies Completed and Pending Completed Studies During Hospitalization Category Date Time Status CT head thrombolytic 10054 Stat Cat Scan 07/09/23 13:58 Completed CTA head neck [CT angio headneck* 41621/[id number]] Stat Cat Scan 07/09/23 13:58 Completed XR chest 1V portable 01400 Stat Exams 07/09/23 13:58 Completed Pending at discharge Category Date Time Status Blood Culture Stat Lab 07/09/23 14:00 Results Radiology Impressions Chest X-Ray 07/09/23 13:58 Impression: Negative chest. Head CT 07/09/23 13:58 IMPRESSION: 1. No evidence of intracranial hemorrhage or mass effect. 2. Chronic large LEFT SEO CONSULTANT territory infarct with encephalomalacia unchanged compared to previous. 3. Chronic lacunar infarcts in the LEFT greater than RIGHT basal ganglia. 4. No other significant changes. Notified Cong White DO at 07/09/2023 2:14 PM. Head/Neck CTA 07/09/23 13:58 IMPRESSION: 1. Less than 50% cervical ICA stenosis bilaterally. 2. LEFT dominant vertebral artery. Tiny RIGHT vertebral artery ends in PICA. 3. No evidence of proximal intracranial flow-limiting stenosis. 4. Mild intracranial atheromatous disease. 5. Chronic decreased vascularity to the LEFT [employer] CONS[employer]ANT territory in the area of prior large SEO CONS[employer]ANT territory infarct with encephalomalacia. 6. Cavernous carotid calcification with moderate LEFT greater than RIGHT supraclinoid ICA stenosis. 7. Slightly decreased flow to the far anterior LEFT MCA territory indeterminate but may be chronic. No proximal flow-limiting stenosis. 8. Numerous pulmonary nodules in the lung apices most of which appear to be partially calcified. This can be further evaluated with chest CT. Laboratory Results WBC 10.80 10^3/uL (3.29-11.43) 07/11/23 04:56 RBC 4.89 10^6/uL (3.85-5.65) 07/11/23 04:56 Hgb 13.90 g/dL (11.27-16.99) 07/11/23 04:56 Hct 41.7 % (37-53) 07/11/23 04:56 MCV 85.3 fl (82-101) 07/11/23 04:56 MCH 28.4 pg (27-33) 07/11/23 04:56 MCHC 33.3 g/dL (30-55) 07/11/23 04:56 RDW 12.9 % (12.1-15.1) 07/11/23 04:56 Plt Count 281 10^3/cmm (157-399) 07/11/23 04:56 MPV 11.2 fL (7.4-10.4) H 07/11/23 04:56 Neut % (Auto) 58.0 % 07/11/23 04:56 Lymph % (Auto) 30.4 % 07/11/23 04:56 [place] % (Auto) 7.8 % 07/11/23 04:56 Eos % (Auto) 2.3 % 07/11/23 04:56 Baso % (Auto) 0.9 % 07/11/23 04:56 Neut # (Auto) 6.27 10^3/uL (1.8-7.7) 07/11/23 04:56 Lymph # (Auto) 3.3 10^3/uL (0.8-4.8) 07/11/23 04:56 [place] # (Auto) 0.8 10^3/uL (0.2-0.9) 07/11/23 04:56 Eos # (Auto) 0.3 10^3/uL (0.0-0.8) 07/11/23 04:56 Baso # (Auto) 0.1 10^3/uL (0.0-0.1) 07/11/23 04:56 Nucleated RBC % (auto) 0 % 07/11/23 04:56 Nucleated RBCs # 0.0 /100WBC 07/11/23 04:56 PT 13.80 SECONDS (12.1-14.9) 07/09/23 14:00 INR 1.02 (0.8-1.2) 07/09/23 14:00 APTT 23.3 SECONDS (23.9-36.7) L 07/09/23 14:00 D-Dimer 0.58 ug/mLFEU (0-0.59) 07/09/23 14:00 Sodium 142 mmol/L (136-145) 07/11/23 04:56 Potassium 4.2 mmol/L (3.5-5.1) 07/11/23 04:56 Chloride 106 mmol/L (98-107) 07/11/23 04:56 Carbon Dioxide 24 mmol/L (22-29) 07/11/23 04:56 Anion Gap 16.2 (5-19) 07/11/23 04:56 BUN 14 mg/dL (6-20) 07/11/23 04:56 Creatinine 1.0 mg/dL (0.7-1.2) 07/11/23 04:56 GFR Calculation 76.7 mL/min (90-130) L 07/11/23 04:56 Glucose 106 mg/dL (65-115) 07/11/23 04:56 POC Glucose 138 mg/dL (70-110) H 07/11/23 16:11 Calculated Osmolality 295 mOsm/kg (285-295) 07/11/23 04:56 Lactic Acid 1.3 mmol/L (0.5-2.2) 07/09/23 14:00 Calcium 9.0 mg/dL (8.5-10.5) 07/11/23 04:56 Phosphorus 3.7 mg/dL (2.5-4.5) 07/10/23 02:35 Magnesium 2.1 mg/dL (1.7-2.3) 07/10/23 02:35 Iron 40 ug/dL (59-158) L 07/09/23 14:00 TIBC 263 mcg/dl 07/09/23 14:00 % Saturation 15.2 % (20-50) L 07/09/23 14:00 Unsat Iron Binding 223 ug/dL (112-347) 07/09/23 14:00 Total Bilirubin 0.8 mg/dL (0.15-1.2) 07/11/23 04:56 AST 23 U/L (0-40) 07/11/23 04:56 ALT 24 U/L (0-41) 07/11/23 04:56 Alkaline Phosphatase 76 U/L (40-130) 07/11/23 04:56 Troponin T Baseline 30 ng/L (0-15) H 07/10/23 02:35 Troponin T 120 Minute 22.98 ng/L (0-15) H 07/10/23 05:45 Delta Troponin T -7.02 ABS# (0-10) L 07/10/23 05:45 Troponin T Hi Sens 6Hr 21.17 ng/L (0-15) H 07/10/23 08:00 Troponin T Hi Sens 6Hr Delta -8.83 ng/L (0-12) L 07/10/23 08:00 Total Protein 6.2 g/dL (6.6-8.7) L 07/11/23 04:56 Albumin 3.8 g/dL (3.5-5.2) 07/11/23 04:56 Globulin 2.4 g/dL (1.3-4.6) 07/11/23 04:56 Triglycerides 96 mg/dL (0-150) 07/10/23 02:35 Cholesterol 149 mg/dL (0-200) 07/10/23 02:35 LDL Cholesterol, Calc 89 mg/dL (50-129) 07/10/23 02:35 HDL Cholesterol 41 mg/dL (60-100) L 07/10/23 02:35 LDL/HDL Ratio 2.17 RATIO (0.00-3.22) 07/10/23 02:35 Cholesterol/HDL Ratio 3.63 mg/dL (1.0-5.00) 07/10/23 02:35 Lipase 18 U/L (13-60) 07/09/23 14:00 Vitamin B12 656 pg/mL (232-1245) 07/09/23 14:00 Folate 10.1 ng/mL (4.5-32.2) 07/10/23 02:35 Procalcitonin 0.06 ng/mL (0-0.5) 07/10/23 02:35 TSH 0.66 uIU/mL (0.27-4.20) 07/10/23 02:35 Prolactin 21.00 ng/mL (4.0-15.2) H 07/09/23 14:00 Urine Color Yellow (Yellow) 07/09/23 14:56 Urine Appearance Clear (CLEAR) 07/09/23 14:56 Urine pH 5 (5-7) 07/09/23 14:56 Ur Specific [place] 1.005 (1.005-1.030) 07/09/23 14:56 Urine Protein Neg (Negative) 07/09/23 14:56 Urine Glucose (UA) 4+ (Normal) H 07/09/23 14:56 Urine Ketones 1+ (Negative) H 07/09/23 14:56 Urine Blood 2+ (Negative) H 07/09/23 14:56 Urine Nitrate Negative (Negative) 07/09/23 14:56 Urine Bilirubin Neg (Negative) 07/09/23 14:56 Urine Urobilinogen Norm mg/dL (Negative) 07/09/23 14:56 Ur Leukocyte Esterase Negative (Negative) 07/09/23 14:56 Urine RBC Rare /hpf (0-2) 07/09/23 14:56 Urine WBC None /hpf (0-5) 07/09/23 14:56 Ur Eosinophil Smear Not Reportable 07/09/23 14:56 Ur Squamous Epith Cells None /hpf (0-5) 07/09/23 14:56 Amorphous Sediment Not Reportable 07/09/23 14:56 Urine Bacteria 1+ /hpf (NONE) H 07/09/23 14:56 Urine Mucus Trace /hpf 07/09/23 14:56 Urine Eosinophils No eosinophils seen 07/09/23 14:56 Ur Random Sodium 43 mmol/L 07/09/23 14:56 Ur Random Potassium 14 mmol/L 07/09/23 14:56 Ur Random Chloride 35 mmol/L 07/09/23 14:56 Urine Creatinine 60 mg/dL (39-259) 07/09/23 14:56 Urine Opiates Screen Negative ng/mL (Negative) 07/09/23 14:56 Ur Barbiturates Screen Negative ng/mL (Negative) 07/09/23 14:56 Ur Phencyclidine Scrn Negative ng/mL (Negative) 07/09/23 14:56 Ur Amphetamines Screen Negative ng/mL (Negative) 07/09/23 14:56 U Benzodiazepines Scrn Negative ng/mL (Negative) 07/09/23 14:56 Urine Cocaine Screen Negative ng/mL (Negative) 07/09/23 14:56 U Marijuana (THC) Screen Positive ng/mL (Negative) H 07/09/23 14:56 Adenovirus (PCR) Not detected (NOT DETECT) 07/09/23 18:14 C. pneumoniae DNA (PCR) Not detected (NOT DETECT) 07/09/23 18:14 Coronavirus 229E (PCR) Not detected (NOT DETECT) 07/09/23 18:14 Human Metapneumovir PCR Not detected (NOT DETECT) 07/09/23 18:14 Influenza A (H1) PCR Not detected (NOT DETECT) 07/09/23 18:14 Influ A (H1/09) PCR Not detected (NOT DETECT) 07/09/23 18:14 Influenza A (H3) PCR Not detected (NOT DETECT) 07/09/23 18:14 Influenza Type A (PCR) Not detected (NOT DETECT) 07/09/23 18:14 Influenza Type B (PCR) Not detected (NOT DETECT) 07/09/23 18:14 M. pneumoniae (PCR) Not detected (NOT DETECT) 07/09/23 18:14 Parainfluenza 1 (PCR) Not detected (NOT DETECT) 07/09/23 18:14 Parainfluenza 2 (PCR) Not detected (NOT DETECT) 07/09/23 18:14 Parainfluenza 3 (PCR) Not detected (NOT DETECT) 07/09/23 18:14 Parainfluenza 4 (PCR) Not detected (NOT DETECT) 07/09/23 18:14 RSV Type A (PCR) Not detected (NOT DETECT) 07/09/23 18:14 RSV Type B (PCR) Not detected (NOT DETECT) 07/09/23 18:14 Entero/Rhino (PCR) Not detected (NOT DETECT) 07/09/23 18:14 SARS-CoV-2 (PCR) Not detected (NOT DETECT) 07/09/23 18:14 MRSA (PCR) Not detected (NOT DETECTED) 07/10/23 12:00 Vitals Last Vital Signs Temp 97.5 F L 07/12/23 08:04 Pulse 31 L 07/12/23 08:04 Resp 16 07/12/23 08:04 BP 140/60 07/12/23 08:04 Pulse Ox 98 07/12/23 08:04 O2 Del Method Room Air 07/12/23 08:04 Discharge Plan Discharge Patient Disposition: Hospice - Home Condition: Stable Prescriptions: New Janumet 50-1,000 mg tablet 1 tab PO BID Qty: 60 0RF amoxicillin-pot clavulanate 875-125 mg tablet 1 tab PO BID Qty: 6 0RF Continued amlodipine 10 mg Tablet 10 mg PO DAILY Qty: 60 0RF aspirin 81 mg tablet,delayed release (DR/EC) 81 mg PO DAILY Qty: 30 0RF atorvastatin 40 mg Tablet 40 mg PO BEDTIME Qty: 30 0RF lisinopril 20 mg tablet 20 mg PO DAILY Changed Farxiga 5 mg tablet 10 mg PO DAILY Qty: 60 0RF Discontinued metformin 1,000 mg tablet 1,000 mg PO BID Discharge Orders: Discharge Order (Routine); Ordered 07/12/23 Ordered By: Oren Raymond Referrals: [facility] [Outside] Stanley,RHETT Miranda [Primary Care Provider] - 7-10 days Discharge Diet: Usual diet Discharge Activity: Resume usual activity Patient Instructions: Opioid Safety Activity Restrictions/Additional Instructions: Dose of Farxiga has been increased to 10 mg daily. Metformin has been changed to Janumet. Continue take Janumet twice daily. Home hospice. Discharge Attestations Time Spent in Discharge Care*: greater than 30 min Specific Discharge Activities: educating and/or supporting family/caregiver, discussing with pcp/other providers, discussing with high risk case manager/social workers/dc planners, documenting/other paperwork and evaluating patient/reviewing data Status at Discharge: Cognitive status at discharge: moderately impaired cognition, Behavioral status at discharge: cooperative, Functional status at discharge: other assisted ambulation, Overall status at discharge: patient is back to baseline Quality Metrics Clinical Quality Measures [ No reported AMI, CVA or VTE this stay] Coding Level of Care Code 58906 Total time (in minutes) for Discharge: 60 Diagnoses Encephalopathy G93.40 GRETEL (acute kidney injury) N17.9 Leukocytosis D72.829 Essential hypertension I10 Hypertension type: essential hypertension Diabetes E11.9 Encephalomalacia with cerebral infarction G93.89; I63.9 Mobitz type II block I44.1 Goals of care, counseling/discussion Z71.89
[2023-07-12 11:41] LABS: Glucose Point of Care 130 mg/dL (70-110)
--- NOTE | 2023-07-12 15:41 | PC.NURSE ---
Discharge Note Patient discharged to home via private vehicle accompanied by son. Discharge instructions reviewed with patient and/or traveling representative. Mobile pharmacy medications and/or prescriptions provided. Belongings/home medications returned.
== END 2023-07-12 15:44 | disposition hospice, home (50) ==
LOC: ER 16:24 → MEDSURG 07-10 00:26
PROVIDERS: Family Medicine; Admitting Provider Student in an Organized Health Care Education/Training Program; Emergency Provider Family Medicine; PCP Nurse Practitioner Family; Visit Provider Student in an Organized Health Care Education/Training Program
DX: G93.40 Encephalopathy, unspecified (principal); N17.9 Acute kidney failure, unspecified; D72.829 Elevated white blood cell count, unspecified; I10 Essential (primary) hypertension; E11.9 Type 2 diabetes mellitus without complications; G93.89 Other specified disorders of brain; I63.9 Cerebral infarction, unspecified; I44.1 Atrioventricular block, second degree; Z71.89 Other specified counseling
CPT/HCPCS: 36415; 36416; 70450; 70496; 70498; 71045; 80053; 80061; 80306; 81001; 82436; 82570; 82607; 82746; 82962; 83540; 83550; 83605; 83690; 83735; 84100; 84133; 84145; 84146; 84300; 84443; 84484; 85025; 85378; 85610; 85730; 85999; 86403; 87040; 87449; 87486; 87581; 87633; 87641; 92523; 92526; 92610; 93005; 96365; 96372; 97110; 97116; 97161; 97167; 97530; 99285; G0378; J1644; J1815; J2270; J2543; J7030; Q9967

== ENCOUNTER 2024-02-21 16:02 | Emergency (ER) | payer MEDICARE, SELFPAY ==
[2024-02-21 16:03] VITALS: BP 165/82; PULSE 77; RESP 22; TEMP 36.7; O2SAT 98
--- NOTE | 2024-02-21 16:23 | XRR_ITS ---
PROCEDURE INFORMATION: Exam: XR Right Knee Exam date and time: 02/21/2024 4:31 PM Age: 58 years old Clinical indication: Patient HX: Bilateral knee pain/abrasions after fall TECHNIQUE: Imaging protocol: Radiologic exam of the right knee. Views: 3 views. 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 No acute fracture or joint effusion. Soft tissues: Normal. Vasculature: Atherosclerotic disease. XR/XR knee RT 3V* [id number] IMPRESSION: No acute fracture or joint effusion.
--- NOTE | 2024-02-21 16:23 | XRR_ITS ---
PROCEDURE INFORMATION: Exam: XR Left Knee Exam date and time: 02/21/2024 4:30 PM Age: 58 years old Clinical indication: Pain; Knee; Bilateral; Additional info: Bilateral knee pain/abrasions after fall TECHNIQUE: Imaging protocol: Radiologic exam of the left knee. Views: 3 views. COMPARISON: No relevant prior studies available. FINDINGS: Bones/joints: No acute fracture or joint effusion. Soft tissues: Normal. Vasculature: Atherosclerotic disease. XR/XR knee LT 3V* [id number] IMPRESSION: No acute fracture or joint effusion.
--- NOTE | 2024-02-21 16:32 | ED_ITS ---
HPI - Fall General: Chief Complaint: Fall Stated Complaint: [place] knee pain s/p fall Time Seen by Provider: 02/21/24 16:04 Source: EMS Mode of arrival: EMS Limitations: altered mental status History of Present Illness: 58-year-old male who is currently on a h ospice had a history of stroke in the past he had fell today at retirement. He is altered per retirement this is his baseline. Patient does have abrasions to bilateral knees he is able to answer some questions but is quite confused Related Data Home Medications Medication Instructions Recorded Confirmed lisinopril 20 mg tablet 20 mg PO DAILY 07/09/23 07/09/23 Previous Rx's Medication Instructions Recorded atorvastatin 40 mg tablet 40 mg PO BEDTIME #30 tabs 11/23/21 amlodipine 10 mg tablet 10 mg PO DAILY #60 tabs 03/05/23 aspirin 81 mg tablet,delayed 81 mg PO DAILY #30 tabs 03/05/23 release amoxicillin 875 mg-potassium 1 tab PO BID #6 tabs 07/12/23 clavulanate 125 mg tablet dapagliflozin propanediol 5 mg 10 mg (2 x 5 mg) PO DAILY #60 tabs 07/12/23 tablet (Farxiga) sitagliptin phosphate 50 1 tab PO BID #60 tabs 07/12/23 mg-metformin 1,000 mg tablet (Janumet) Allergies Allergy/AdvReac Type Severity Reaction Status Date / Time tramadol AdvReac ADR-Headach Verified 02/21/24 16:28 e Review of Systems General: Reports: ROS unobtainable due to mental status PFSH ED PFSH: Medical History Encephalomalacia with cerebral infarction Closed right hip fracture History of cerebrovascular accident Diabetes Mobitz type II block HTN (hypertension) CAD (coronary artery disease) Heart block Marijuana abuse Acute alteration in mental status Displaced fracture of right femoral neck Fall Closed right hip fracture Carotid stenosis Hyperlipidemia Sleep apnea Stroke Surgical History S/P hip hemiarthroplasty History of appendectomy History of tonsillectomy Family History Other Diabetes Hyperlipidemia Hypertension Social History Smoking and tobacco/nicotine status: never used tobacco/nicotine Alcohol intake: never Substance/Drug Use: current Physical Exam Const: COMMON NORMALS: negative for patient oriented x3 HENMT: COMMON NORMALS: normocephalic and atraumatic HEAD & SCALP: normocephalic and atraumatic Eye: COMMON NORMALS: conjunctivae normal CONJUNCTIVA: Yes conjunctivae normal Neck/C-Spine: COMMON NORMALS: full ROM and supple Chest: COMMONS NORMALS: normal inspection of the chest Resp: COMMON NORMALS: normal respiratory effort Cardio: COMMON NORMALS: regular rate, regular rhythm and No murmurs present (Cardio) RATE: regular rate RHYTHM: regular rhythm GI: COMMON NORMALS: Normal to inspection, nondistended, normoactive bowel sounds present, Soft to palpation, non-tender and no masses PALPATION: Yes Soft to palpation Extremity: COMMON NORMALS: full ROM NARRATIVE EXTREMITY EXAM: Abrasions noted to bilateral knees Neuro: COMMON NORMALS: moves all extremities and no focal motor deficits; negative for patient oriented x3 Psych: COMMON NORMALS: mental status grossly normal, Normal thought process present and cooperative THOUGHT PROCESS: Normal thought process present Skin: COMMON NORMALS: no rashes or lesions noted and no wounds GENERAL SKIN EXAM: no rashes or lesions noted Course Vital Signs: Vital signs: Vital Signs Temperature 98.1 F 02/21/24 16:03 Pulse Rate 80 02/21/24 16:42 Respiratory Rate 20 H 02/21/24 16:42 Blood Pressure 155/84 02/21/24 16:42 Pulse Oximetry 91 02/21/24 16:42 Oxygen Delivery Me thod Room Air 02/21/24 16:03 MDM - Fall Medical Decision Making Patient presents after a fall he does have knee abrasions x-ray shows no fractures I did speak to family did not want any other testing or imaging done as he is on hospice will discharge him back to the retirement. Medical Records I reviewed the patient's medical records. Lab Data I reviewed the patient's lab results. Laboratory Results POC Glucose 77 mg/dL (70-110) 02/21/24 16:40 XR interpretation done by ED provider, pending radiology final review ED provider radiology interpretation(s): xr knee bilateral: no acute fx Discharge Plan Discharge Patient Disposition: Home Clinical Impression: Fall, Abrasion of both knees Condition: Stable Prescriptions: No Action amlodipine 10 mg Tablet 10 mg PO DAILY Qty: 60 0RF aspirin 81 mg tablet,delayed release (DR/EC) 81 mg PO DAILY Qty: 30 0RF atorvastatin 40 mg Tablet 40 mg PO BEDTIME Qty: 30 0RF lisinopril 20 mg tablet 20 mg PO DAILY Janumet 50-1,000 mg tablet 1 tab PO BID Qty: 60 0RF Farxiga 5 mg tablet 10 mg PO DAILY Qty: 60 0RF amoxicillin-pot clavulanate 875-125 mg tablet 1 tab PO BID Qty: 6 0RF Discharge Orders: Discharge ED (Routine); Ordered 02/21/24 Ordered By: Yaneli Wills Referrals: Stanley,KYLE MirandaP [Primary Care Provider] - 4-7 days Discharge Diet: Advance as tolerated Discharge Activity: Resume usual activity Patient Instructions: Abrasion (ED) Coding Level of Care Code ED [employer] Agent for [facility] [place]
[2024-02-21 16:42] VITALS: BP 155/84; PULSE 80; RESP 20; O2SAT 91
[2024-02-21 16:43] LABS: Glucose Point of Care 77 mg/dL (70-110)
--- NOTE | 2024-02-21 17:10 | PC.NURSE ---
initiated start of transport. hospice nurse contacting family at this time to see if family available to pick pt up. UC calling [facility] to set up ambulance ride back to [facility].
[2024-02-21 17:43] VITALS: BP 182/83; PULSE 93; O2SAT 95
== END 2024-02-21 17:58 | disposition home or self-care (01) ==
PROVIDERS: Emergency Provider Emergency Medicine; PCP Nurse Practitioner Family
DX: S80.212A Abrasion, left knee, initial encounter (principal); S80.211A Abrasion, right knee, initial encounter; Z79.82 Long term (current) use of aspirin; X58.XXXA Exposure to other specified factors, initial encounter; E11.9 Type 2 diabetes mellitus without complications; I10 Essential (primary) hypertension; I25.10 Atherosclerotic heart disease of native coronary artery without angina pectoris; E78.5 Hyperlipidemia, unspecified; Z86.73 Personal history of transient ischemic attack (TIA), and cerebral infarction without residual deficits
CPT/HCPCS: 36416; 73562; 82962; 99284